=== PATIENT | male | born 1945 | race Caucasian/White ===

== ENCOUNTER → 2016-06-21 | Outpatient (REF) | payer MEDICARE ==
[~2016-06-21] MED LIST: APAP325T PO; COLA100C PO; CYCL10TA PO; GABAPOW41 PO; HUMULIN INSULIN SC; IBUP80TA; INSUR50VL SC; LANTUS INSULIN SC; LORT5TAB PO; MOM30SS PO; MULTLIQ7 PO; NAPR250T2 PO; NEUR100C PO; PLAV75TA PO; PRILOSEC; SENO8.6T2 PO; SIMV20TA2 PO; SIMVPOW2 PO; VASOTEC PO; VERAPAMIL PO; VITAMIN B 1 PO; VITAMIN D PO
== END ==
LOC: M SMT 12:40
PROVIDERS: ATTEND Urology
DX: N39.0 Urinary tract infection, site not specified (principal)

== ENCOUNTER → 2016-07-02 | Outpatient (CLI) | payer MEDICARE ==
[~2016-07-02] MED LIST changes: -PLAV75TA PO; +PLAV75TA38 PO
--- NOTE | 2016-07-02 16:30 | REP ---
CT abdomen and pelvis without IV or bowel contrast: Comparisons 04/14/2015. The visualized lung fernandez are unremarkable. There is a small volume of ascites surrounding the liver as an interval change. Multiple small gallbladder calculi are noted layering along the dependent wall of the gallbladder, similar to the prior study. There is no evidence of acute cholecystitis or biliary duct dilatation. Splenomegaly is again noted, not significantly changed. Splenic calcified granulomas are again noted. To focal zones of induration are again noted in the anterior abdominal wall subcutaneous fat, similar to the prior study,. The thought to be an hematomas from trauma or from the subcutaneous injections. There are stable and unchanged in appearance and may represent chronic scarring in the subcutaneous fat. The adrenals are unremarkable. There are nonobstructive calcifications in the lower pole of the right kidney as previously. There are multiple nonobstructive left renal calculi as previously. However, the current study there is a 3 ml calcification in the proximal left ureter at the UPJ, not present previously. However, there is no hydronephrosis. This calcification may be nonobstructive. The abdominal aorta is unremarkable except for occasional calcified atheroma. There is no periaortic adenopathy or mass. There is new induration adjacent to the ascending colon and there is no focal fluid collection to suggest abscess. This is nonspecific and could represent colitis, diverticulitis, or panniculitis. Upon review there is mild induration of the mesenteric fat surrounding the superior mesenteric artery. This was also present previously and is compatible with panniculitis. There is a focal ascites in the central mesentery above the bladder, not present previously. There are surgical clips, evelyn and calcification in the mesentery medial to the ascending colon, unchanged. Pelvis: There is no adenopathy. No ascites posteriorly in the pelvis. The pelvic bowel loops are unremarkable. There is degenerative calcification in the distal left psoas tendon adjacent to the lesser trochanter of the left hip, unchanged. Impression: There is now induration surrounding the ascending colon, nonspecific, diverticulitis versus colitis versus panniculitis. No definite diverticula are identified. No focal fluid collection to suggest abscess. There is mild induration surrounding the superior mesenteric artery, however, upon review, this was present previously and is compatible with panniculitis. There is a small volume of ascites surrounding the liver and is focal collection of ascites in the central mesentery above the bladder, not present previously. There is a 3 ml calcification in the proximal left ureter at the UPJ, not present previously, however, there is no hydronephrosis. There are bilateral nonobstructive renal calculi again identified, as previously. Cholelithiasis is again noted without biliary duct dilatation as previously. Splenomegaly is again noted as previously. Splenic calcified granulomas are again noted. Two focal zones of induration in the anterior abdominal wall subcutaneous fat are again noted, unchanged, possibly focal zones of scarring. There are s surgical clips in the left inguinal area. These were also present previously. Signed by Francisco Mckeon MD 07/02/2016 04:22 P
== END ==
LOC: M RAD 14:10
PROVIDERS: ATTEND Urology
DX: N39.0 Urinary tract infection, site not specified (principal)

== ENCOUNTER → 2016-07-05 | Outpatient (REF) | payer MEDICARE | LOC: M SMT 13:15 | PROVIDERS: ATTEND Urology | DX: N39.0 Urinary tract infection, site not specified (principal) ==

== ENCOUNTER → 2016-07-22 | Outpatient (REF) | payer MEDICARE ==
[~2016-07-22] MED LIST changes: +CALC600T21 PO; +CARB25TA PO; +CRANCAP4 PO; +INSULANT SC; +PRIL20CA9 PO; +VITA100L PO; +VITA50003 PO
[2016-07-22 16:53] LABS: ANION GAP 12 MEQ/L (8-16); BLOOD UREA NITROGEN 13 MG/DL (7-18); CALCIUM LEVEL 8.2 MG/DL (8.8-10.2); CARBON DIOXIDE LEVEL 22 MEQ/L (21-32); CHLORIDE LEVEL 107 MEQ/L (98-107); GLOMERULAR FILTRATION RATE > 60.0 (>42); GLUCOSE, FASTING 275 MG/DL (83-110); POTASSIUM SERUM 4.2 MEQ/L (3.5-5.1); SODIUM LEVEL 141 MEQ/L (136-145)
[2016-07-22 19:28] LABS: MEAN CORPUSCULAR HGB CONC 30.8 g/dl (32.0-36.5); MEAN CORPUSCULAR VOLUME 77.8 fl (80.0-96.0); RED CELL DISTRIBUTION WIDTH 16.6 % (11.5-14.5); WHITE BLOOD COUNT 3.4 K/mm3 (4.0-10.0)
== END ==
LOC: M LABSMT 09:38
PROVIDERS: ATTEND Urology
DX: Z01.818 Encounter for other preprocedural examination (principal); N20.0 Calculus of kidney

== ENCOUNTER → 2016-07-22 | Outpatient (CLI) | payer MEDICARE ==
--- NOTE | 2016-07-22 10:19 | REP ---
Chest x-ray: Two views. History: Kidney stones. Comparison chest x-ray May 03, 2014. Findings: The patient is status post cervical spine fusion. A granulomatous calcification is seen in the right mid lung zone. The right hemidiaphragm remains somewhat elevated unchanged from the comparison study. There are degenerative changes in the thoracic spine as before. The heart is not enlarged. Pulmonary vasculature is not increased. Impression: Elevated right hemidiaphragm unchanged from comparison study. Old granulomatous disease. No acute abnormality.
== END ==
LOC: M CLY 09:32
PROVIDERS: ATTEND Urology
DX: Z01.818 Encounter for other preprocedural examination (principal); N20.0 Calculus of kidney; J98.4 Other disorders of lung

== ENCOUNTER 2016-07-29 13:35 | Observation (INO) | payer MEDICARE ==
[~2016-07-29] VITALS: Ht 180.3 cm; Wt 123.0 kg
--- NOTE | 2016-07-29 14:16 | REP ---
Clinical: Headache . Findings: Age-related atrophy, periventricular leukomalacia and microvascular ischemic changes are appreciated. The ventricles and sulci are symmetric. Richardson-white differentiation is maintained. There is no evidence for acute intracranial hemorrhage, mass/mass effect, pathology or infarction. No extra-axial fluid collection. Calvarium is intact. Paranasal sinuses and mastoid air cells are clear. Impression: Age related atrophy and microvascular ischemic changes. No acute intracranial hemorrhage, infarction, or mass/mass effect. Signed by Bony Marvin MD 07/29/2016 02:08 P
--- NOTE | 2016-07-29 14:25 | REP ---
Clinical: Syncope. Technique: PA and lateral. Comparison: 07/22/2016. Findings: Mediastinum and cardiac silhouette stable. Moderate elevation of the right hemidiaphragm unchanged. No acute consolidation, effusion, or pneumothorax. Skeletal structures intact. Impression: Chronic stable changes. No acute cardiopulmonary process. Signed by Bony Marvin MD 07/29/2016 02:15 P
[2016-07-29 14:50] LABS: BASO % 0.7 % (0.0-1.0); EOS # 0.1 K/mm3 (0.0-0.50); LARGE UNSTAINED CELL # 0.1 K/mm3 (0.0-0.4); LARGE UNSTAINED CELL % 2.3 % (0.0-4.0); LYMPH # 0.5 K/mm3 (1.5-4.5); LYMPH % 13.7 % (24.0-44.0); MEAN CORPUSCULAR HEMOGLOBIN 23.8 pg (27.0-33.0); MEAN CORPUSCULAR VOLUME 76.7 fl (80.0-96.0); MONO # 0.3 K/mm3 (0.0-0.8); MONO % 8.6 % (0.0-5.0); NEUTROPHILS # 2.5 K/mm3 (1.8-7.7); NEUTROPHILS % 72.7 % (36.0-66.0); PLATELET COUNT, AUTOMATED 102 k/mm3 (150-450); RED CELL DISTRIBUTION WIDTH 16.3 % (11.5-14.5); WHITE BLOOD COUNT 3.5 K/mm3 (4.0-10.0)
[2016-07-29 15:02] LABS: ANION GAP 10 MEQ/L (8-16); BLOOD UREA NITROGEN 12 MG/DL (7-18); CALCIUM LEVEL 8.2 MG/DL (8.8-10.2); CARBON DIOXIDE LEVEL 24 MEQ/L (21-32); CHLORIDE LEVEL 108 MEQ/L (98-107); CREATININE FOR GFR 0.96 MG/DL (0.70-1.30); GLOMERULAR FILTRATION RATE > 60.0 (>42); GLUCOSE, FASTING 236 MG/DL (83-110); POTASSIUM SERUM 3.9 MEQ/L (3.5-5.1); SODIUM LEVEL 142 MEQ/L (136-145)
[2016-07-29] MEDS ORDERED: VITA100T2 PO (16:56)
[2016-07-29] MEDS ORDERED: VERA240T14 PO (16:56)
[2016-07-29] MEDS ORDERED: NAPR500T2 PO (16:56)
[2016-07-29] MEDS ORDERED: COLC1TAB13 PO (16:58)
[2016-07-29] MEDS ORDERED: NORC5TAB PO (16:58)
[2016-07-29] MEDS ORDERED: ENAL5TAB PO (16:58)
[2016-07-29] MEDS ORDERED: ACETAMINOPHEN TAB 650MG DOSE (2X325MG) PO PRN (17:00)
[2016-07-29] MEDS ORDERED: CALCTAB68 PO (17:01)
[2016-07-29] MEDS ORDERED: VITA10002 PO (17:01)
[2016-07-29 17:14] LABS: FREE T4 0.93 NG/DL (0.76-1.46)
[2016-07-29] MEDS ORDERED: COLCHICINE 0.6 MG TAB PO PRN (17:15)
[2016-07-29] MEDS ORDERED: NORCO, ANEXSIA 5/325MG TABLET (HYDROcodone/ACETAMINOPHEN) PO PRN (17:15)
[2016-07-29] MEDS ORDERED: NAPROXEN 250 MG TAB PO PRN (17:15)
[2016-07-29 18:12] VITALS: BP 144/66
[2016-07-29 18:40] VITALS: BP 147/63
[2016-07-29] MEDS ORDERED: GLUCOSE 4 GM CHEW TABLET PO PRN (18:45)
[2016-07-29] MEDS ORDERED: DEXTROSE 50% 50 ML SYRINGE IV PRN (18:45)
[2016-07-29] MEDS ORDERED: GLUCAGON FOR INJ 1 MG VIAL (J1610) SC PRN (18:45)
--- NOTE | 2016-07-29 19:52 | HPE ---
DATE OF ADMISSION: 07/29/2016 PRIMARY CARE PROVIDER: Dr. Conley HISTORY OF PRESENT ILLNESS: This patient is a 71-year-old male with a past medical history significant for vertebral artery insufficiency, incidental finding diabetes, gastroesophageal reflux disease (GERD), hypercholesterolemia, bilateral kidney stone, gout, tremors, who presented to [facility] on 07/29/2016 after a near syncope episode. Patient was in a diner eating lunch, after two-thirds of the meal, all of a sudden patient started having "a lightheadedness type of feeling" originating from the epigastric region radiating to the whole head. Those strange feelings lasted less than a minute and then patient felt he almost passed out and he transitioned to a face where "I'm in a different world and everything is in slow motion" and those abnormal feelings lasted about 20 minutes and resolved without any interventions. Throughout the whole process, the patient did not lose any consciousness, however patient has increased bilateral finger shaking and that never happened before. Denies any loss of bowel or bladder control. Patient stated he is aware of the family member and friend who were in the diner with him. He is aware of what has occurred and the surroundings. He just could not respond appropriately. Denies any fevers, chills. Denies any history of seizure. Denies any pain anywhere. Denies any difficulty breathing. Patient does have a history of severe neuropathy and patient also has been experiencing chronic bilateral hand tremors. Patient also has a history of "vertebral artery blockage" diagnosed by the neurologist and the patient has been taking Plavix. Patient was diagnosed with bilateral kidney stone and patient was instructed to hold off Plavix for the past week. Patient is scheduled to have bilateral kidney stone removal by Dr. Darby on 07/30/2016. ALLERGIES: CODEINE, SULFA, MORPHINE, TETRACYCLINE, PRAMLINTIDE. HOME MEDICATIONS: - [place] 5/325 1 tablet by mouth every 6 hours as needed - carbidopa/levadopa 25/100 by mouth four times a day - Plavix 75 mg by mouth daily - colchicine 0.6 mg by mouth daily as needed for gout flares - vitamin B12 1000 mcg by mouth nightly - enalapril 5 mg by mouth daily - insulin Lantus 45 units nightly - Lantus 65 units subcu every morning - naproxen 500 mg by mouth twice a day as needed for pain - omeprazole 40 mg by mouth nightly - simvastatin 20 mg by mouth nightly - thiamine 100 mg by mouth daily - verapamil 240 mg by mouth daily - calcium/vitamin D complex by mouth nightly - insulin U-500 per sliding scale PAST MEDICAL HISTORY: 1. Insulin dependent diabetes. 2. Gastroesophageal reflux disease (GERD) 3. Hypercholesteremia. 4. Bilateral kidney stones. 5. Gout. 6. Intermittent hand tremors. 7. Peripheral neuropathy. 8. History of sleep apnea. 9. Cervical degenerative disc disease. 10. History of spinal stenosis. 11. Spinal cord changes of myelopathy. PAST SURGICAL HISTORY: 1. Prior anterior C5-6 fusion. 2. Lumbar decompression. 3. Hernia repair. 4. Appendectomy. 5. Left shoulder surgery. SOCIAL HISTORY: The patient used to smoke a cigar intermittently. Patient quit in 2000. Patient drinks beer once weekly. Denies recreational drug use. The patient is a DO NOT RESUSCITATE (DNR). REVIEW OF SYSTEMS: GENERAL: Patient had a brief episode of mentation changes lasting approximately 20-30 minutes. Denies any fever or chills. No similar episode occurred in the past. HEENT: No vision changes. No auditory changes. CARDIOVASCULAR: "Lightheadedness," a strange feeling originating from the epigastric region, radiated to the whole head, lasting less than a minute today during lunch time. Never happened before. Patient does have a history of cardiac murmur; however denies any other significant cardiac history. Denies any pain. Denies any palpitations. RESPIRATORY: No cough, no sputum production. No wheezes. GASTROINTESTINAL: No nauseam, no vomiting. No diarrhea. MUSCULOSKELETAL: History of gout. Currently does not have any muscle pain or joint pain. NEUROLOGIC: History of severe peripheral neuropathy from diabetes. Intermittent involuntary hand tremors. OBJECTIVE: VITAL SIGNS: Blood pressure is 135/64, pulse is 78, respirations 18, temperature is 97.6, pulse oximetry is 97% on room air. Body weight is 123.83 kg. Body height is 180.34 cm. GENERAL: No sign of acute distress. Morbidly obese. Alert and oriented times three. HEENT: Normocephalic, atraumatic. Extraocular muscles grossly intact. CARDIOVASCULAR: Distant positive systolic murmur, best heard at the left sternal border. Regular rate. Positive S1, S2. RESPIRATORY: Lungs clear to auscultation bilaterally. No wheezes or rhonchi. ABDOMEN: Morbidly obese. Soft, nontender, nondistended. No rebound or guarding. MUSCULOSKELETAL: No lower extremity edema. No sign of cyanosis. Surgical scar in the lower cervical region and also in the lower lumbar region. There is a surgical scar at the left deltoid region. NEUROLOGIC: Complete loss of sensation in the bilateral distal lower extremities. Decreased sensation of bilateral hands and wrists. Muscle strength is 5/5. LABORATORY DATA: WBC 3.5, hemoglobin is 10.6, hematocrit is 34.2, platelet count is 102. Sodium is 142, potassium 3.9, chloride is 108, carbon dioxide 24, BUN 12, creatinine 0.96, GFR greater than 60, fasting glucose is 236, calcium 8.2, total CK is 186, troponin is less than 0.02. IMAGING STUDIES: Chest x-ray showed chronic stable changes. No acute cardiopulmonary processes. CT of the head without contrast showed age related atrophy and microvascular ischemic changes. No acute intracranial hemorrhage, infarction, mass, or mass effect. ASSESSMENT AND PLAN: 1. Near syncope episode. Patient will be admitted to the progressive care unit (PCU). The patient did complain about epigastric discomfort with radiation. The first set of troponin is negative. Will follow with a repeat troponin. We will obtain an EEG to rule out any possible seizures. I had a chance to discuss with the daytime rounding physician, Dr. Tobias. We both agree that it would be beneficial to restart the Plavix at this time. 2. Insulin dependent diabetes. We will follow his A1c. Patient will continue his home regimen, long-acting insulin 65 units subcu every morning and 45 units subcu nightly. Patient will use U-500 high potency insulin per sliding scale every morning and nightly. 4. Severe peripheral neuropathy. 5. Hyperlipidemia. Zocor 20 mg by mouth nightly. 6. Intermittent involuntary tremors. Continue carbidopa and levadopa. 7. History of gout. Currently does not have any flare. 8. History of vertebral artery insufficiency/stenosis. Patient's Plavix is restarted. 9. Patient had a CT of abdomen and pelvis performed on 07/02/2016 and there is no obstruction. There is no hydronephrosis. Patient is getting stone removal and will be elective surgery. Currently we are in the process of trying to rule out any cardiovascular event. 10. Deep vein thrombosis (DVT) prophylaxis. The patient will be on heparin. MTDD
[2016-07-29 19:54] VITALS: BP 129/55
[2016-07-29] MEDS ORDERED: OMEPRAZOLE 20 MG CAP As Ordered ONE (20:54)
[2016-07-29] MEDS ORDERED: HEPARIN SOD (PORCINE) 5000 UNITS/ML VIAL As Ordered ONE (20:54)
[2016-07-29] MEDS ORDERED: LEVEMIR (INSULIN DETEMIR) 1 UNITS/0.01ML As Ordered ONE (20:56)
[2016-07-29] MEDS ORDERED: SIMVASTATIN 20 MG TAB PO SCH (21:00)
[2016-07-29] MEDS: CYANOCOBALAMIN 500 MCG TAB PO SCH (21:02)
[2016-07-29] MEDS: OMEPRAZOLE 20 MG CAP PO SCH (21:02)
[2016-07-29] MEDS: HEPARIN SOD (PORCINE) 5000 UNITS/ML VIAL SC SCH (21:02)
[2016-07-29] MEDS: SINEMET 25-100 MG TAB PO SCH (21:02)
[2016-07-29] MEDS: LEVEMIR (INSULIN DETEMIR) 1 UNITS/0.01ML SC SCH (21:03)
[2016-07-30] VITALS: BP 130/65
[2016-07-30 04:00] VITALS: BP 114/61
[2016-07-30 05:40] LABS: MEAN CORPUSCULAR HEMOGLOBIN 23.6 pg (27.0-33.0); MEAN CORPUSCULAR HGB CONC 30.3 g/dl (32.0-36.5); MEAN CORPUSCULAR VOLUME 78.1 fl (80.0-96.0); RED CELL DISTRIBUTION WIDTH 16.6 % (11.5-14.5); WHITE BLOOD COUNT 3.1 K/mm3 (4.0-10.0)
[2016-07-30] MEDS: HEPARIN SOD (PORCINE) 5000 UNITS/ML VIAL SC SCH ×3 (05:52→21:08)
[2016-07-30 06:02] LABS: ANION GAP 10 MEQ/L (8-16); BLOOD UREA NITROGEN 11 MG/DL (7-18); CALCIUM LEVEL 8.6 MG/DL (8.8-10.2); CARBON DIOXIDE LEVEL 26 MEQ/L (21-32); CHLORIDE LEVEL 108 MEQ/L (98-107); CREATININE FOR GFR 0.81 MG/DL (0.70-1.30); GLOMERULAR FILTRATION RATE > 60.0 (>42); GLUCOSE, FASTING 183 MG/DL (83-110); POTASSIUM SERUM 4.2 MEQ/L (3.5-5.1); SODIUM LEVEL 144 MEQ/L (136-145)
[2016-07-30] MEDS ORDERED: INSULIN REGULAR SC SCH ×4 (07:30→17:30)
[2016-07-30 07:49] VITALS: BP 133/71
[2016-07-30] MEDS ORDERED: LEVEMIR (INSULIN DETEMIR) 1 UNITS/0.01ML As Ordered ONE (08:53)
[2016-07-30] MEDS: SINEMET 25-100 MG TAB PO SCH ×4 (08:56→21:09)
[2016-07-30] MEDS: VERAPAMIL 120 MG SR TAB PO SCH (08:56)
[2016-07-30] MEDS: LEVEMIR (INSULIN DETEMIR) 1 UNITS/0.01ML SC SCH ×2 (08:56→21:09)
[2016-07-30] MEDS: THIAMINE 100 MG TAB PO SCH (08:57)
[2016-07-30] MEDS: CLOPIDOGREL 75 MG TAB PO SCH (08:57)
[2016-07-30] MEDS: ENALAPRIL MALEATE 5 MG TAB PO SCH (08:57)
[2016-07-30 10:17] LABS: FOLATE 12.6 NG/ML (>5.4); VITAMIN B12 LEVEL 1167 PG/ML (247-911)
[2016-07-30] MEDS: [UNRECOGNIZED DRUG - SUPPLY] XX SCH ×2 (12:00→17:30)
[2016-07-30] MEDS ORDERED: HEPARIN SOD (PORCINE) 5000 UNITS/ML VIAL As Ordered ONE (13:33)
[2016-07-30] MEDS: INSULIN REGULAR SC SCH (13:35)
[2016-07-30 15:03] VITALS: BP 113/53
--- NOTE | 2016-07-30 15:11 | REP ---
MRI BRAIN WITHOUT CONTRAST: HISTORY: TIAs. COMPARISON: 10/18/2011. Areas of increased signal intensity on T2-weighted images are present in the periventricular and subcortical white matter. This represents small vessel ischemic disease. There is no intraparenchymal hemorrhage, infarct, mass or midline shift. The ventricular system and cortical sulci as well as subarachnoid space in the posterior fossa are dilated consistent with mild volume loss. There is no extracerebral collection. The sinuses are clear. IMPRESSION: 1. Small vessel ischemic disease. 2. Mild volume loss. Signed by Steven Kaur MD 07/30/2016 03:30 P
[2016-07-30 15:15] VITALS: BP 152/65
--- NOTE | 2016-07-30 15:29 | EDDOCDS ---
Physician Documentation [facility] Name: Thanh Desai Age: 71 yrs Sex: Male : 1945 Arrival Date: 07/29/2016 Time: 13:35 Bed Admit Hold Private MD: Disposition: 07/29/16 15:52 Hospitalization ordered by Veronica Mccallum for Inpatient Admission. Preliminary diagnosis are Syncope and collapse, Cardiac murmur, unspecified, Chest pain, unspecified. - Bed requested for PCU. - Status is Inpatient Admission. dy - Condition is Stable. - Problem is new. - Symptoms are unchanged. Historical: - Allergies: Codeine Sulfate; Morphine; TETRACYCLINES; SymlinPen 60; - Home Meds: 1. Plavix 75 mg Oral tab 1 tab once daily 2. verapamil 240 mg Oral C24P 1 cap once daily 3. vitamin B1 daily 4. simvastatin 20 mg Oral tab 1 tab once daily 5. omeprazole 40 mg Oral cpDR 1 cap once daily 6. naproxen 500 mg Oral tab 1 tab as needed 7. Humulin R U-500 (Concentrated) Insulin subcutaneous sliding scale subcutaneous 8. Lantus 65 units in am, 45 units in pm Sub-Q 9. hydrocodone-acetaminophen 5-325 mg Oral tab 1 tab every 6 hours 10. enalapril maleate 5 mg Oral tab 1 tab once daily 11. colchicine 0.6 mg Oral tab 1 tab as needed 12. Vitamin C Oral 13. Vitamin D Oral 50,000 unit monthly 14. Vitamin B-12 Oral daily 15. Calcium + Vitamin D Oral daily 16. cranberry extract-vitamin C oral oral daily 17. carbidopa-levodopa 25-100 mg Oral tab 1 tab 4 times per day - PMHx: tremors; Diabetes - IDDM: controlled; GERD; Hypercholesterolemia; Kidney stones; - Social history: No barriers to communication noted, The patient speaks fluent Icelandic. - : The pt / caregiver states he / she is on anticoagulants: Plavix. Home medication list is obtained from the patient. - Exposure Risk Screening:: None identified. Vital Signs: 07/29 13:59 BP 140 / 77; Pulse 80; Resp 18; Temp 97.6(O); Pulse Ox 97% on R/A; Weight 123.83 kg / dem1 273 lbs; Height 5 ft. 11 in. (180.34 cm); Pain 0/10; 15:23 BP 152 / 67 Supine; Pulse 77; mcp 15:24 BP 138 / 62 Sitting; Pulse 74; mcp 15:24 BP 135 / 64 Standing; Pulse 78; mcp 15:28 Pulse 72 MON; Pulse Ox 95% ; ld5 15:28 BP 131 / 62 (auto/); ld5 15:43 BP 135 / 62 (auto/); ld5 15:43 Pulse 72 MON; Pulse Ox 95% ; ld5 15:58 BP 133 / 64 (auto/); ld5 15:58 Pulse 72 MON; Pulse Ox 94% ; ld5 16:29 BP 145 / 64 (auto/); ld5 16:29 Pulse 76 MON; Pulse Ox 95% ; ld5 16:43 BP 140 / 65 (auto/); ld5 16:43 Pulse 72 MON; Pulse Ox 95% ; ld5 16:58 BP 148 / 66 (auto/); ld5 16:58 Pulse 74 MON; Pulse Ox 95% ; ld5 17:13 BP 142 / 64 (auto/); ld5 17:13 Pulse 72 MON; Pulse Ox 96% ; ld5 17:43 Pulse 74 MON; Pulse Ox 95% ; ld5 17:43 BP 132 / 64 (auto/); ld5 17:58 BP 144 / 66 (auto/); ld5 17:58 Pulse 74 MON; Pulse Ox 94% ; ld5 18:13 BP 142 / 62 (auto/); ld5 18:13 Pulse 74 MON; Resp 18; Temp 99; Pulse Ox 94% ; ld5 13:59 Body Mass Index 38.08 (123.83 kg, 180.34 cm) dem1 MDM: 13:41 ECG WITH READING ER PHYS+CARDIAG ordered. EDMS 13:54 Psychological Examiner/Pulse Ox/q 30 min VS ordered. br1 13:54 IV Saline Lock ordered. br1 13:54 Rhythm Strip to chart ordered. br1 13:54 Undress patient appropriately for examination ordered. br1 13:54 Orthostatic VS ordered. br1 13:54 Basic Metabolic Profile Ordered. EDMS 13:54 CBC with Diff Ordered. EDMS 13:55 Cardiac Injury Profile Ordered. EDMS 13:55 Troponin Ordered. EDMS 13:55 Chest, 2 View (pa\E\lat) Ordered. EDMS 13:56 CT Head Without Contrast Ordered. EDMS 15:16 Basic Metabolic Profile Reviewed. br1 15:16 CBC with Diff Reviewed. br1 15:16 Cardiac Injury Profile Reviewed. br1 15:16 Troponin Reviewed. br1 15:16 Chest, 2 View (pa\E\lat) Reviewed. br1 15:16 CT Head Without Contrast Reviewed. br1 15:55 BED REQUEST+ADM ordered. EDMS 16:04 Financial registration complete. [email or web address] 16:23 [facility] Payment Agreement was scanned into [employer] and attached to record. [email or web address] 16:40 CARDIAC MARKER PANEL Ordered. EDMS 16:43 HEMOGLOBIN A1C Ordered. EDMS 16:43 THYROID STIMULATING HORMONE Ordered. EDMS 16:43 FREE T4 Ordered. EDMS 17:04 Admission / Observation Status ordered. EDMS 17:05 CONSISTENT CARBOHYDRATES ordered. EDMS 17:13 PHYSICAL THERAPY EVAL & TREAT ordered. EDMS 19:11 Fingerstick Blood Sugar Ordered. EDMS 19:31 FOLATE Ordered. EDMS 19:31 VITAMIN B12 LEVEL Ordered. EDMS 21:37 COMPLETE BLOOD COUNT Ordered. EDMS 21:37 CARDIAC MARKER PANEL Ordered. EDMS 21:37 BASIC METABOLIC PROFILE Ordered. EDMS 02 11:52 MRA BRAIN W/O CONTRAST Ordered. EDMS 11:52 MRI Brain without Contrast Ordered. EDMS 11:54 MRA CAROTID W/O FOL WITH Ordered. EDMS 13:38 Fingerstick Blood Sugar Ordered. EDMS 15:07 T-Sheet-- Draft Copy was scanned into [employer] and attached to record. gb 15:08 PCR was scanned into [employer] and attached to record. gb 15:08 ECG/EKG was scanned into [facility] and attached to record. gb 15:08 Radiology Report was scanned into [facility] and attached to record. gb 15:08 Rhythm Strip was scanned into [employer] [facility] and attached to record. gb Signatures: Dispatcher [employer] EDMS Sharifa Reen RN Michelle Dominguez mcp, Reg Reg gb Jasper Salgado RN RN dy Roggie, Brian, MD MD br1 Guillaume Gan RN RN [facility] Belkis Zhong, Reg Reg [email or web address] The chart was reviewed and I authenticate all verbal orders and agree with the evaluation and treatment provided.Corrections: (The following items were deleted from the chart) 07/29 21:38 19:30 CARDIAC MARKER PANEL ordered. EDMS EDMS 21:38 19:31 COMPLETE BLOOD COUNT ordered. EDMS EDMS 19:31 BASIC METABOLIC PROFILE ordered. EDMS EDMS 07/30 11:52 10:58 MRA BRAIN WITH CONTRAST ordered. EDMS EDMS 11:52 10:58 MRI Brain W/CON ordered. EDMS EDMS 11:54 10:58 MRA CAROTID WITH CONTRAST ordered. EDMS EDMS : 07/29 16:23 [facility] Payment Agreement [email or web address] 07/30 15:07 T-Sheet-- Draft Copy gb 15:08 ECG/EKG gb MTDD
--- NOTE | 2016-07-30 15:29 | EDDOCDS ---
Nurse's Notes [facility] Name: Thanh Desai Age: 71 yrs Sex: Male : 1945 Arrival Date: 07/29/2016 Time: 13:35 Bed Admit Hold Private MD: Diagnosis: Syncope and collapse;Cardiac murmur, unspecified;Chest pain, unspecified Presentation: 07/29 13:40 Presenting complaint: EMS states: Was sitting at table eating lunch and had syncopal mcp episode. FSBS--247. IV established in right wrist #18. Suicide/Homicide risk assessment- the patient denies having any suicidal and/or homicidal ideations and does not present with any other emotional, behavioral or mental health complaints. Status: Patient is not a creative services designer or dependent. Transition of care: patient was not received from another setting of care. 13:40 Acuity: HOLLEY Level 3 [facility] 13:40 Method Of Arrival: Ambulance [facility] Triage Assessment: 14:01 General: Appears in no apparent distress, comfortable, Behavior is cooperative. Pain: mcp Denies pain. Neurological: Level of Consciousness is awake, alert, Oriented to person, place, time, Moves all extremities. Speech is normal. Cardiovascular: Rhythm is sinus rhythm No ectopy. Respiratory: Airway is patent Respiratory effort is even, unlabored. Derm: Skin is pink, warm & dry. Historical: - Allergies: Codeine Sulfate; Morphine; TETRACYCLINES; SymlinPen 60; - Home Meds: 1. Plavix 75 mg Oral tab 1 tab once daily 2. verapamil 240 mg Oral C24P 1 cap once daily 3. vitamin B1 daily 4. simvastatin 20 mg Oral tab 1 tab once daily 5. omeprazole 40 mg Oral cpDR 1 cap once daily 6. naproxen 500 mg Oral tab 1 tab as needed 7. Humulin R U-500 (Concentrated) Insulin subcutaneous sliding scale subcutaneous 8. Lantus 65 units in am, 45 units in pm Sub-Q 9. hydrocodone-acetaminophen 5-325 mg Oral tab 1 tab every 6 hours 10. enalapril maleate 5 mg Oral tab 1 tab once daily 11. colchicine 0.6 mg Oral tab 1 tab as needed 12. Vitamin C Oral 13. Vitamin D Oral 50,000 unit monthly 14. Vitamin B-12 Oral daily 15. Calcium + Vitamin D Oral daily 16. cranberry extract-vitamin C oral oral daily 17. carbidopa-levodopa 25-100 mg Oral tab 1 tab 4 times per day - PMHx: tremors; Diabetes - IDDM: controlled; GERD; Hypercholesterolemia; Kidney stones; - Social history: No barriers to communication noted, The patient speaks fluent Arabic. - : The pt / caregiver states he / she is on anticoagulants: Plavix. Home medication list is obtained from the patient. - Exposure Risk Screening:: None identified. Screenin:27 Screening information is obtained from the patient. Fall risk: No risks identified. mcp Assistance ADL's: requires no assistance with activities of daily living. Abuse/DV Screen: The patient / caregiver reports he/she is: not in a situation that causes fear, pain or injury. Nutritional screening: No deficits noted. Advance Directives: There is no active DNR order. home support is adequate. Assessment: 14:00 General: Appears in no apparent distress, Behavior is cooperative. Neurological: Level mcp of Consciousness is awake, alert, Oriented to person, place, time, Moves all extremities. Speech is normal. Cardiovascular: Rhythm is sinus rhythm No ectopy. Respiratory: Airway is patent Respiratory effort is even, unlabored. Derm: Skin is pink, warm & dry. 15:26 General: Appears in no apparent distress, comfortable, Behavior is cooperative. Pain: mcp Location: back and neck Pain currently is 4 out of 10 on a pain scale. Neurological: Level of Consciousness is awake, alert, Oriented to person, place, time, Moves all extremities. Speech is normal. Cardiovascular: Rhythm is sinus rhythm No ectopy. Respiratory: Airway is patent Respiratory effort is even, unlabored. Derm: Skin is pink, warm & dry. 15:45 General: Appears in no apparent distress, Behavior is cooperative, pleasant. Pain: ld5 Location: neck Pain currently is 4 out of 10 on a pain scale. Neurological: Level of Consciousness is awake, obeys commands, Oriented to person, place, time, Floor Surfacer are equal bilaterally. Neurological: Denies weakness dizziness. Respiratory: Airway is patent Respiratory effort is even, unlabored. GI: Abdomen is obese, Bowel sounds present X 4 quads. Abd is soft and non tender X 4 quads. Denies nausea, vomiting. Derm: Skin is intact, Skin is dry. 16:30 General: Appears in no apparent distress, Behavior is cooperative. Neurological: Level ld5 of Consciousness is awake, alert. Respiratory: Airway is patent Respiratory effort is even, unlabored. 17:30 General: Hospitalist in to assess pt. ld5 17:55 General: Appears in no apparent distress, Behavior is cooperative, pleasant. General: ld5 Pt aware of plan for admission and plan to stay in ER pending monitored bed availability. Family members remain at bedside. Will continue to monitor. Pain: Pain currently is 2 out of 10 on a pain scale. Neurological: Level of Consciousness is awake, alert. Respiratory: Airway is patent Respiratory effort is even, unlabored. 18:22 General: Pt sitting up in bed. Admission RN in with pt. Respirations easy and ld5 unlabored. Will continue to monitor. 18:22 General: Report given to [facility] RN fowler. ld5 Vital Signs: 13:59 BP 140 / 77; Pulse 80; Resp 18; Temp 97.6(O); Pulse Ox 97% on R/A; Weight 123.83 kg; dem1 Height 5 ft. 11 in. (180.34 cm); Pain 0/10; 15:23 BP 152 / 67 Supine; Pulse 77; mcp 15:24 BP 138 / 62 Sitting; Pulse 74; mcp 15:24 BP 135 / 64 Standing; Pulse 78; mcp 15:28 Pulse 72 MON; Pulse Ox 95% ; ld5 15:28 BP 131 / 62 (auto/); ld5 15:43 BP 135 / 62 (auto/); ld5 15:43 Pulse 72 MON; Pulse Ox 95% ; ld5 15:58 BP 133 / 64 (auto/); ld5 15:58 Pulse 72 MON; Pulse Ox 94% ; ld5 16:29 BP 145 / 64 (auto/); ld5 16:29 Pulse 76 MON; Pulse Ox 95% ; ld5 16:43 BP 140 / 65 (auto/); ld5 16:43 Pulse 72 MON; Pulse Ox 95% ; ld5 16:58 BP 148 / 66 (auto/); ld5 16:58 Pulse 74 MON; Pulse Ox 95% ; ld5 17:13 BP 142 / 64 (auto/); ld5 17:13 Pulse 72 MON; Pulse Ox 96% ; ld5 17:43 Pulse 74 MON; Pulse Ox 95% ; ld5 17:43 BP 132 / 64 (auto/); ld5 17:58 BP 144 / 66 (auto/); ld5 17:58 Pulse 74 MON; Pulse Ox 94% ; ld5 18:13 BP 142 / 62 (auto/); ld5 18:13 Pulse 74 MON; Resp 18; Temp 99; Pulse Ox 94% ; ld5 13:59 Body Mass Index 38.08 (123.83 kg, 180.34 cm) dem1 Vitals: 13:59 Log In Time N/A - ambulance arrival. [facility] ED Course: 13:35 Patient visited by Gladis Dominique, Investment Sales Assistant. deg 13:35 Patient moved to Waiting deg 13:38 Patient moved to 8 deg 13:41 Triage Initiated mcp 13:44 Paulo Villanueva MD is Attending Physician. br1 13:54 Patient visited by Paulo Villanueva MD. br1 13:55 shearer screen measurer and trimmer on. Pulse ox on. NIBP on. dem1 13:55 EKG done. (by ED staff). Reviewed by Paulo Villanueva MD. dem1 13:59 Patient visited by Tanesha Bearden. dem1 14:00 Maintain field IV. Dressing intact. Good blood return noted. Site clean & dry. Gauge & mcp site: #18 right wrist. 14:02 Patient visited by Sharifa Rene, SERGE. mcp 14:34 Basic Metabolic Profile Sent. mcp 14:34 CBC with Diff Sent. mcp 14:34 Cardiac Injury Profile Sent. mcp 14:34 Troponin Sent. mcp 14:54 CT Head Without Contrast Returned. EDMS 14:54 Chest, 2 View (pa\E\lat) Returned. EDMS 15:27 The patient / caregiver is instructed regarding the plan of care and ED course. Patient mcp has correct armband on for positive identification. Placed in gown. Placed in psych safe attire. Bed in low position. Call light in reach. Side rails up X2. Adult w/ patient. 15:29 Patient visited by Sharifa Rene, RN. mcp 15:52 Veronica Mccallum is Hospitalizing Provider. br1 16:15 Patient visited by Ruby Payne,SERGE. ld5 16:23 [facility] Payment Agreement was scanned into [employer] and attached to record. ks16 16:30 Patient visited by Ruby Payne,RN. ld5 17:28 Patient visited by Ruby Payne,RN. ld5 17:43 Patient moved to Admit Hold deg 17:46 Patient visited by Ruby Payne,RN. ld5 17:58 Patient visited by Ruby Payne,RN. ld5 18:22 Patient visited by Ruby Payne,SERGE. ld5 07/30 15:07 T-Sheet-- Draft Copy was scanned into [employer] and attached to record. gb 15:08 PCR was scanned into [employer] and attached to record. gb 15:08 ECG/EKG was scanned into [employer] and attached to record. gb 15:08 Radiology Report was scanned into [employer] and attached to record. gb 15:08 Rhythm Strip was scanned into [employer] and attached to record. gb Attachments: 15:08 Rhythm Strip gb Order Results: Lab Order: Basic Metabolic Profile; [facility] 07/29/16 14:33 Test: GLUCOSE, FASTING; Value: 236; Range: 83-110; Abnormal: Above high normal; Units: MG/DL; Status: F Test: BLOOD UREA NITROGEN; Value: 12; Range: 7-18; Units: MG/DL; Status: F Test: CREATININE FOR GFR; Value: 0.96; Range: 0.70-1.30; Units: MG/DL; Status: F Test: GLOMERULAR FILTRATION RATE; Value: > 60.0; Range: >42; Status: F Test: SODIUM LEVEL; Value: 142; Range: 136-145; Units: MEQ/L; Status: F Test: POTASSIUM SERUM; Value: 3.9; Range: 3.5-5.1; Units: MEQ/L; Status: F Test: CHLORIDE LEVEL; Value: 108; Range: 98-107; Abnormal: Above high normal; Units: MEQ/L; Status: F Test: CARBON DIOXIDE LEVEL; Value: 24; Range: 21-32; Units: MEQ/L; Status: F Test: ANION GAP; Value: 10; Range: 8-16; Units: MEQ/L; Status: F Test: CALCIUM LEVEL; Value: 8.2; Range: 8.8-10.2; Abnormal: Below low normal; Units: MG/DL; Status: F Test Note: ; Units are mL/min/1.73 m2 Chronic Kidney Disease Staging per NKF: Stage I & II GFR >=60 Normal to Mildly Decreased Stage III GFR 30-59 Moderately Decreased Stage IV GFR 15-29 Severely Decreased Stage V GFR <15 Very Little GFR Left ESRD GFR <15 on SHADE MAKER Lab Order: CBC with Diff; SPEC'M 07/29/16 14:33 Test: WHITE BLOOD COUNT; Value: 3.5; Range: 4.0-10.0; Abnormal: Below low normal; Units: K/mm3; Status: F Test: RED BLOOD COUNT; Value: 4.46; Range: 4.30-6.10; Units: M/mm3; Status: F Test: HEMOGLOBIN; Value: 10.6; Range: 14.0-18.0; Abnormal: Below low normal; Units: g/dl; Status: F Test: HEMATOCRIT; Value: 34.2; Range: 42.0-52.0; Abnormal: Below low normal; Units: %; Status: F Test: MEAN CORPUSCULAR VOLUME; Value: 76.7; Range: 80.0-96.0; Abnormal: Below low normal; Units: fl; Status: F Test: MEAN CORPUSCULAR HEMOGLOBIN; Value: 23.8; Range: 27.0-33.0; Abnormal: Below low normal; Units: pg; Status: F Test: MEAN CORPUSCULAR HGB CONC; Value: 31.0; Range: 32.0-36.5; Abnormal: Below low normal; Units: g/dl; Status: F Test: RED CELL DISTRIBUTION WIDTH; Value: 16.3; Range: 11.5-14.5; Abnormal: Above high normal; Units: %; Status: F Test: PLATELET COUNT, AUTOMATED; Value: 102; Range: 150-450; Abnormal: Below low normal; Units: k/mm3; Status: F Test: NEUTROPHILS %; Value: 72.7; Range: 36.0-66.0; Abnormal: Above high normal; Units: %; Status: F Test: LYMPH %; Value: 13.7; Range: 24.0-44.0; Abnormal: Below low normal; Units: %; Status: F Test: MONO %; Value: 8.6; Range: 0.0-5.0; Abnormal: Above high normal; Units: %; Status: F Test: EOS %; Value: 2.0; Range: 0.0-3.0; Units: %; Status: F Test: BASO %; Value: 0.7; Range: 0.0-1.0; Units: %; Status: F Test: LARGE UNSTAINED CELL %; Value: 2.3; Range: 0.0-4.0; Units: %; Status: F Test: NEUTROPHILS #; Value: 2.5; Range: 1.8-7.7; Units: K/mm3; Status: F Test: LYMPH #; Value: 0.5; Range: 1.5-4.5; Abnormal: Below low normal; Units: K/mm3; Status: F Test: MONO #; Value: 0.3; Range: 0.0-0.8; Units: K/mm3; Status: F Test: EOS #; Value: 0.1; Range: 0.0-0.50; Units: K/mm3; Status: F Test: BASO #; Value: 0.0; Range: 0.0-0.2; Units: K/mm3; Status: F Test: LARGE UNSTAINED CELL #; Value: 0.1; Range: 0.0-0.4; Units: K/mm3; Status: F Lab Order: Cardiac Injury Profile; [facility] 07/29[facility]16 14:33 Test: CPK CREATINE PHOSPHOKINASE; Value: 186; Range: 39-308; Units: U/L; Status: F Test: CK-MB VALUE MASS; Value: 4.8; Range: 0.0-3.6; Abnormal: Above high normal; Units: NG/ML; Status: F Test: MB/CK RELATIVE INDEX; Value: 2.58; Range: < OR =4; Status: F Test Note: ; DIAGNOSIS CRITERIA MMB ng/ml Relative Index (RI) NON-AMI < or = 5 N/A RICH[place]DSON ZONE > 5 < or = 4 AMI > 5 > 4 Lab Order: Troponin; SPEC'M 07/29/16 14:33 Test: TROPONIN I; Value: < 0.02; Range: < 0.10; Units: NG/ML; Status: F Test Note: ; Troponin I Reference Interval for [employer] LOCI: 99th Percentile= 0.00-0.045 ng/ml Risk Stratification: <= 0.10 ng/ml Decreased Risk for Adverse Clinical Events. 0.10-1.50 ng/ml Increased Risk for Adverse Clinical Events. Evaluation of additional criterion and/or repeat testing in 2-6 hours is suggested to rule out myocardial damage. >= 1.50 ng/ml Indicative of Myocardial Injury. Lab Order: CARDIAC MARKER PANEL; [facility] 07/29/16 19:54 Test: CPK CREATINE PHOSPHOKINASE; Value: 200; Range: 39-308; Units: U/L; Status: F Test: CK-MB VALUE MASS; Value: 4.4; Range: 0.0-3.6; Abnormal: Above high normal; Units: NG/ML; Status: F Test: MB/CK RELATIVE INDEX; Value: 2.20; Range: < OR =4; Status: F Test: TROPONIN I; Value: < 0.02; Range: < 0.10; Units: NG/ML; Status: F Test Note: ; DIAGNOSIS CRITERIA MMB ng/ml Relative Index (RI) NON-AMI < or = 5 N/A R[place] ZONE > 5 < or = 4 AMI > 5 > 4 Lab Order: HEMOGLOBIN A1C; [facility] 07/29/16 14:32 Test: HEMOGLOBIN A1c; Value: 8.9; Range: 4.5-6.2; Abnormal: Above high normal; Units: %; Status: F Test: ESTIMATED AVERAGE GLUCOSE; Value: 209; Range: 60-110; Abnormal: Above high normal; Units: MG/DL; Status: F Lab Order: THYROID STIMULATING HORMONE; [facility] 07/29/16 14:32 Test: THYROID STIMULATING HORMONE; Value: 2.680; Range: 0.358-3.740; Units: uIU/ML; Status: F Lab Order: FREE T4; [facility] 07/29/16 14:32 Test: FREE T4; Value: 0.93; Range: 0.76-1.46; Units: NG/DL; Status: F Lab Order: Fingerstick Blood Sugar; [facility] 07/29/16 19:02 Test: BEDSIDE GLUCOSE; Value: 107; Range: 83-110; Units: MG/DL; Status: F Lab Order: FOLATE; [facility] 07/30/16 05:29 Test: FOLATE; Value: 12.6; Range: >5.4; Units: NG/ML; Status: F Test Note: ; FOLATE NORMAL RANGE NORMAL GREATER THAN 5.4 NG/ML INDETERMINATE 3.4-5.4 NG/ML DEFICIENT LESS THAN 3.4 NG/ML Lab Order: VITAMIN B12 LEVEL; SPEC07/30/16 05:29 Test: VITAMIN B12 LEVEL; Value: 1167; Range: 247-911; Abnormal: Above high normal; Units: PG/ML; Status: F Test Note: ; VITAMIN B12 NORMAL RANGE NORMAL 247 - 911 PG/ML INDETERMINATE 211 - 246 PG/ML DEFICIENT LESS THAN 211 PG/ML Lab Order: COMPLETE BLOOD COUNT; SPEC07/30/16 05:29 Test: WHITE BLOOD COUNT; Value: 3.1; Range: 4.0-10.0; Abnormal: Below low normal; Units: K/mm3; Status: F Test: RED BLOOD COUNT; Value: 4.18; Range: 4.30-6.10; Abnormal: Below low normal; Units: M/mm3; Status: F Test: HEMOGLOBIN; Value: 9.9; Range: 14.0-18.0; Abnormal: Below low normal; Units: g/dl; Status: F Test: HEMATOCRIT; Value: 32.6; Range: 42.0-52.0; Abnormal: Below low normal; Units: %; Status: F Test: MEAN CORPUSCULAR VOLUME; Value: 78.1; Range: 80.0-96.0; Abnormal: Below low normal; Units: fl; Status: F Test: MEAN CORPUSCULAR HEMOGLOBIN; Value: 23.6; Range: 27.0-33.0; Abnormal: Below low normal; Units: pg; Status: F Test: MEAN CORPUSCULAR HGB CONC; Value: 30.3; Range: 32.0-36.5; Abnormal: Below low normal; Units: g/dl; Status: F Test: RED CELL DISTRIBUTION WIDTH; Value: 16.6; Range: 11.5-14.5; Abnormal: Above high normal; Units: %; Status: F Test: PLATELET COUNT, AUTOMATED; Value: 91; Range: 150-450; Abnormal: Below low normal; Units: k/mm3; Status: F Lab Order: CARDIAC MARKER PANEL; SPEC07/30/16 05:29 Test: CPK CREATINE PHOSPHOKINASE; Value: 223; Range: 39-308; Units: U/L; Status: F Test: CK-MB VALUE MASS; Value: 4.6; Range: 0.0-3.6; Abnormal: Above high normal; Units: NG/ML; Status: F Test: MB/CK RELATIVE INDEX; Value: 2.06; Range: < OR =4; Status: F Test: TROPONIN I; Value: < 0.02; Range: < 0.10; Units: NG/ML; Status: F Test Note: ; DIAGNOSIS CRITERIA MMB ng/ml Relative Index (RI) NON-AMI < or = 5 N/A R[place] ZONE > 5 < or = 4 AMI > 5 > 4 Lab Order: BASIC METABOLIC PROFILE; SPEC'M 07/30/16 05:29 Test: GLUCOSE, FASTING; Value: 183; Range: 83-110; Abnormal: Above high normal; Units: MG/DL; Status: F Test: BLOOD UREA NITROGEN; Value: 11; Range: 7-18; Units: MG/DL; Status: F Test: CREATININE FOR GFR; Value: 0.81; Range: 0.70-1.30; Units: MG/DL; Status: F Test: GLOMERULAR FILTRATION RATE; Value: > 60.0; Range: >42; Status: F Test: SODIUM LEVEL; Value: 144; Range: 136-145; Units: MEQ/L; Status: F Test: POTASSIUM SERUM; Value: 4.2; Range: 3.5-5.1; Units: MEQ/L; Status: F Test: CHLORIDE LEVEL; Value: 108; Range: 98-107; Abnormal: Above high normal; Units: MEQ/L; Status: F Test: CARBON DIOXIDE LEVEL; Value: 26; Range: 21-32; Units: MEQ/L; Status: F Test: ANION GAP; Value: 10; Range: 8-16; Units: MEQ/L; Status: F Test: CALCIUM LEVEL; Value: 8.6; Range: 8.8-10.2; Abnormal: Below low normal; Units: MG/DL; Status: F Test Note: ; Units are mL/min/1.73 m2 Chronic Kidney Disease Staging per NKF: Stage I & II GFR >=60 Normal to Mildly Decreased Stage III GFR 30-59 Moderately Decreased Stage IV GFR 15-29 Severely Decreased Stage V GFR <15 Very Little GFR Left ESRD GFR <15 on SHADE MAKER Lab Order: Fingerstick Blood Sugar; SPEC'M 07/30/16 13:29 Test: BEDSIDE GLUCOSE; Value: 215; Range: 83-110; Abnormal: Above high normal; Units: MG/DL; Status: F Radiology Order: Chest, 2 View (pa\E\lat) Test: Chest, 2 View (pa\E\lat) REASON FOR EXAMINATION: Syncope; Clinical: Syncope.; ; Technique: PA and lateral.; ; Comparison: 07/22/2016.; ; Findings:; Mediastinum and cardiac silhouette stable. Moderate elevation of the right; hemidiaphragm unchanged. No acute consolidation, effusion, or pneumothorax.; Skeletal structures intact.; ; Impression:; Chronic stable changes. No acute cardiopulmonary process.; ; ; Signed by; Bony Marvin MD 07/29/2016 02:15 P; Radiology Order: CT Head Without Contrast Test: CT Head Without Contrast REASON FOR EXAMINATION: headache, near syncope eval for ich; Clinical: Headache .; ; Findings:; Age-related atrophy, periventricular leukomalacia and microvascular ischemic; changes are appreciated. The ventricles and sulci are symmetric. Richardson-white; differentiation is maintained. There is no evidence for acute intracranial; hemorrhage, mass/mass effect, pathology or infarction. No extra-axial fluid; collection. Calvarium is intact. Paranasal sinuses and mastoid air cells are; clear.; ; Impression:; Age related atrophy and microvascular ischemic changes.; No acute intracranial hemorrhage, infarction, or mass/mass effect.; ; ; Signed by; Bony Marvin MD 07/29/2016 02:08 P; Outcome: 07/29 15:52 Decision to Hospitalize by Provider. br1 07/30 15:28 Patient left the ED. dy Signatures: Dispatcher [employer] EDMS Gladis Dominique, Investment Sales Assistant Unit deg Sharifa Rene RN SERGE mcp Michelle Sen, Reg Reg gb Jasper Salgado RN Paulo Rollins MD MD br1 Ruby Payne RN RN ld5 Mack, Demeishia dem1 Sorenson, Kimberly, Reg Reg [id number] MTDD
--- NOTE | 2016-07-30 19:42 | ECGEPIP ---
Stationary ECG Study [facility] - ED Test Date: 2016-07-29 Pat Name: MATTHEW OWENS Department: Room: - Gender: M Manager Cardiac: shalom : 1945 Requested By: Uche Richmond Order Number: [id number] Reading MD: Ellyn Dawson Measurements Intervals [place] Rate: 78 P: 13 GA: 192 QRS: -15 QRSD: 97 T: 27 QT: 390 QTc: 445 Interpretive Statements SINUS RHYTHM LOW QRS VOLTAGE IN PRECORDIAL LEADS INCOMPLETE RIGHT BUNDLE BRANCH BLOCK PRWP NSTTW ABNORMALITY Electronically Signed On 07-30-2016 19:41:39 EST by Ellyn Dawson
[2016-07-30 20:00] VITALS: BP 130/62
[2016-07-30] MEDS ORDERED: ROSUVASTATIN 10 MG TAB (CRESTOR) PO SCH (21:00)
[2016-07-30] MEDS: OMEPRAZOLE 20 MG CAP PO SCH (21:08)
[2016-07-30] MEDS: CYANOCOBALAMIN 500 MCG TAB PO SCH (21:08)
[2016-07-31] VITALS: BP 113/53
[2016-07-31 04:00] VITALS: BP 140/72
[2016-07-31 05:19] LABS: MEAN CORPUSCULAR HEMOGLOBIN 24.4 pg (27.0-33.0); MEAN CORPUSCULAR HGB CONC 31.5 g/dl (32.0-36.5); MEAN CORPUSCULAR VOLUME 77.7 fl (80.0-96.0); RED CELL DISTRIBUTION WIDTH 16.5 % (11.5-14.5)
[2016-07-31 05:23] LABS: WHITE BLOOD COUNT 2.8 K/mm3 (4.0-10.0)
[2016-07-31 05:40] LABS: ANION GAP 10 MEQ/L (8-16); BLOOD UREA NITROGEN 12 MG/DL (7-18); CALCIUM LEVEL 8.4 MG/DL (8.8-10.2); CARBON DIOXIDE LEVEL 26 MEQ/L (21-32); CHLORIDE LEVEL 108 MEQ/L (98-107); CREATININE FOR GFR 0.83 MG/DL (0.70-1.30); FERRITIN 9 NG/ML (26-388); GLOMERULAR FILTRATION RATE > 60.0 (>42); GLUCOSE, FASTING 189 MG/DL (83-110); PERCENT SATURATION 6.4 % (19.7-37.4); POTASSIUM SERUM 4.3 MEQ/L (3.5-5.1); SODIUM LEVEL 144 MEQ/L (136-145); TOTAL IRON BINDING CAPACITY 360 UG/DL (250-450)
[2016-07-31] MEDS: HEPARIN SOD (PORCINE) 5000 UNITS/ML VIAL SC SCH (06:29)
[2016-07-31] MEDS ORDERED: INSULIN REGULAR SC SCH (07:30)
[2016-07-31 08:00] VITALS: BP 135/69
[2016-07-31] MEDS ORDERED: FERROUS SULFATE 325MG TAB PO SCH (09:00)
--- NOTE | 2016-07-31 09:01 | IPN ---
DATE: 07/30/2016 OVERNIGHT EVENTS: Mr. Denson was admitted overnight after experiencing a near-syncopal episode. Cardiac workup was completely unremarkable. He was ordered an electroencephalogram (EEG) in addition to a head CT. Head CT was negative for any acute bleed. He did have cycled troponins that were negative. His symptoms have completely resolved and have not recurred. He has no acute complaints which to address this morning. PHYSICAL EXAMINATION: Vitals: Temperature 98.5 degrees Fahrenheit, pulse 83, respiratory rate 22, blood pressure 133/71, oxygen saturation 97% in room air. General: He is lying comfortably in the ER bed in no acute distress. HEENT: Normocephalic, atraumatic. Pupils equal and react to light accommodation. Mucous membranes are moist. Sclerae anicteric. Neck: No apparent jugular venous distention (JVD). Cardiovascular System: Distant heart sounds with notable systolic murmur at the left upper sternal border. Regular rate and rhythm. Lungs are distant breath sounds, otherwise clear. Abdomen is obese, but soft, nontender and nondistended. Extremities: No edema or clubbing. Neurologic Examination: Good sensation and tone throughout. LABORATORY FINDINGS: CBC: White blood cell count 3.1, hemoglobin 9.9, hematocrit 32.6, and platelets 91. Comprehensive metabolic profile: Sodium 144 , potassium 4.2, chloride 108, bicarb 26, BUN 11, creatinine 0.81, glucose 183, calcium 8.6, creatinine kinase 223, CK-MB 4.6, troponin less than 0.02 times three, vitamin B12 1167, folate 12.6, TSH 2.6, free T4 0.93. ASSESSMENT/PLAN: 1. Near syncopal episode. Cardiac etiologies have been ruled out, including acute myocardial infarction (AMI). He has a history of questionable vertebrobasilar insufficiency, and he's been off Plavix for some time, so this could certainly explain his symptoms. We'll evaluate his carotid patency with an MRA of his carotids today. Autonomic dysfunction in the setting of parkinson's and GERD symptoms could also potentially explain his presenting symptoms and remains on the differential. Plavix has been reinstituted as his head CT was negative for acute bleed. Today, he will scheduled for an EEG and MRI/MRA of the brain. Physical therapy has been instituted. 2. Type 2 diabetes, insulin dependent. His home basal insulin regimen has been continued with 65 units every morning and 45 units each evening. Sliding scale with U-500 high-potency has been instituted as has a carbohydrate consistent diet. 3. Pancytopenia, chronic. Will check Iron studies today and initiate repletion as indicated. 4. Hyperlipidemia. Will increase him to a high intensity statin. He is prescribed Zocor regularly at this point. 5. Intermittent involuntary tremors. Levodopa and carbidopa have been continued. 6. Questionable history of vertebral artery insufficiency and stenosis. Obtaining MRI/ MRA today for further characterization. Plavix has been reinstituted considering his current recent complaint. 7. Deep vein thrombosis (DVT) prophylaxis in the form of subcutaneous Heparin. My preceptor for this patient encounter was Dr. Tobias. The preceptor was physically present in the building during the encounter and was fully available. As needed, all aspects of the patient interview, examination, medical decision making process, and medical care plan development were reviewed and approved by the preceptor. The preceptor is aware and concurs with the plan as stated in the body of this note and will attest to such by his/her cosignature. MIGUELANGEL
--- NOTE | 2016-07-31 09:29 | EEG ---
DATE OF STUDY: 07/30/2016 REFERRING PHYSICIAN: Dr. Santiago Tobias DIAGNOSIS: Rule out seizure. ELECTROENCEPHALOGRAM (EEG) #17-10. HISTORY: The patient is a 71-year-old man who was admitted at [facility] after a [id number] spell while having lunch with his . He felt dizzy. His symptoms lasted for 20 minutes. This EEG was done to rule out epileptic potential. There was no shaking, urinary incontinence, or tongue biting. He is currently taking Sinemet, Prilosec, simvastatin, thiamine, verapamil, Crestor, Plavix, enalapril, etc. TECHNICAL DESCRIPTION: This digital EEG was recorded by 21 scalp, ear, and two electrocardiogram (EKG) electrodes and was reviewed in bipolar and referential montages following reformatting in 10-20 international electrode placement system. INTERPRETATION: The patient was noted to be in awake and drowsy states during this EEG. Resting awake background rhythm consisted of 8-9 Hz alpha activity measuring 15-60 microvolts in amplitude, which was symmetric and reactive to eye opening. Attenuation of posterior dominant rhythm was seen during transition into drowsiness. Stage I and II sleep were reviewed and were symmetric bilaterally. Hyperventilation could not be performed. Photic stimulation remained unremarkable. EKG revealed normal sinus rhythm. No focal, lateralizing, or epileptiform abnormalities were seen. No clinical or electrographic seizures were recorded. CONCLUSION: This EEG in awake, drowsy states, stage I and II sleep is within normal limits.
[2016-07-31] MEDS: LEVEMIR (INSULIN DETEMIR) 1 UNITS/0.01ML SC SCH (10:15)
[2016-07-31] MEDS: ENALAPRIL MALEATE 5 MG TAB PO SCH (10:15)
[2016-07-31] MEDS: CLOPIDOGREL 75 MG TAB PO SCH (10:15)
[2016-07-31] MEDS: SINEMET 25-100 MG TAB PO SCH ×2 (10:15→11:50)
[2016-07-31 10:16] VITALS: BP 135/69
[2016-07-31] MEDS: THIAMINE 100 MG TAB PO SCH (10:16)
[2016-07-31] MEDS: VERAPAMIL 120 MG SR TAB PO SCH (10:16)
[2016-07-31] MEDS: [UNRECOGNIZED DRUG - SUPPLY] XX SCH ×2 (10:20→11:50)
--- NOTE | 2016-07-31 10:42 | REP ---
Clinical: Transient ischemic attack. Technique: Richardson scale and color Doppler evaluation using linear high frequency transducer Findings: Two-dimensional richardson scale and color images demonstrate intimal thickening along with mixed plaque material extending from the distal common carotid arteries through the carotid bulbs and proximal internal carotid arteries (left greater than right). Color images demonstrate normal laminar flow bilaterally with visibly narrowed lumen to the carotid bulbs (left greater than right). Color Doppler interrogation demonstrates normal arterial wave patterns and velocities with no significant spectral broadening. Normal flow direction is appreciated in the bilateral vertebral arteries. RIGHT (cm/s) LEFT (cm/s) ICA peak systolic velocity 72.7 91.3 ICA diastolic velocity 22.2 13.7 ECA peak systolic velocity 66.6 109.5 CCA peak systolic velocity 101.3 90.4 ICA/CCA ratio 0.68 1.01 Impression: Based on set standards narrowing falls within the less than 50% range which by visual inspection approaches 50% in the left carotid bulb. Signed by Bony Marvin MD 07/31/2016 10:34 A
[2016-07-31] MEDS ORDERED: ROSU10TA PO (11:16)
[2016-07-31] MEDS: INSULIN REGULAR SC SCH (11:50)
[2016-07-31 12:00] VITALS: BP 142/74
[2016-07-31 12:16] LABS: RETIC HEMOGLOBIN CONTENT CHr 25.7 PG (24-36); RETICULOCYTE % ADVIA2120 2.6 % (0.5-1.5)
[2016-07-31] MEDS ORDERED: FERR325T PO (12:25)
--- NOTE | 2016-07-31 12:28 | DS.PDOC ---
Discharge Summary General Date of Admission Jul 29, 2016 at 16:50 Date of Discharge Jul 31, 2016 Primary Care Physician: Trev Conley M.D. Specialist/Consultants Involve Physical Therapy Discharge Summary PROCEDURES PERFORMED DURING STAY: 1. Sleep-deprived EEG 2. MRI Brain 3. Non-contrast head CT 4. Bilateral carotid duplex ultrasounds. COMPLICATIONS/CHIEF COMPLAINT: Near Syncope, lightheadedness ADMISSION DIAGNOSES: 1. Pre-syncopal event 2. Question of vertebrobasilar insufficiency 3. Rule out CVA/TIA DISCHARGE DIAGNOSES: 1. Presyncope 2. Question vertebrobasilar insufficiency 3. Hyperlipidemia 4. Type 2 diabetes 5. BPH 6. Pancytopenia 7. Iron Deficiency HISTORY OF PRESENT ILLNESS: This patient is a 71-year-old male with a past medical history significant for vertebral artery insufficiency, incidental finding diabetes, gastroesophageal reflux disease (GERD), hypercholesterolemia, bilateral kidney stone, gout, tremors, who presented to [facility] on 07/29/2016 after a near syncope episode. Patient was in a diner eating lunch, after two-thirds of the meal, all of a sudden patient started having "a lightheadedness type of feeling" originating from the epigastric region radiating to the whole head. Those strange feelings lasted less than a minute and then patient felt he almost passed out and he transitioned to a phase where "I'm in a different world and everything is in slow motion" and those abnormal feelings lasted about 20 minutes and resolved without any interventions. Throughout the whole process, the patient did not lose any consciousness, however patient has increased bilateral finger shaking and that never happened before. Denies any loss of bowel or bladder control. Patient stated he is aware of the family member and friend who were in the diner with him. He is aware of what has occurred and the surroundings. He just could not respond appropriately. Denies any fevers, chills. Denies any history of seizure. Denies any pain anywhere. Denies any difficulty breathing. Patient does have a history of severe neuropathy and patient also has been experiencing chronic bilateral hand tremors. Patient also has a history of "vertebral artery blockage" diagnosed by the neurologist and the patient has been taking Plavix. Patient was diagnosed with bilateral kidney stone and patient was instructed to hold off Plavix for the past week. Patient is scheduled to have bilateral kidney stone removal by Dr. Darby on 07/30/2016. HOSPITAL COURSE: Thanh was admitted to the PCU for telemetry monitoring. His symptoms were resolved by the time of admission and did not recur throughout the admission. He successfully underwent physical therapy evaluation without any deficits. An MRI of the brain was obtained and were essentially unremarkable , without sign of acute infarct. Carotid duplex ultrasounds were ordered to evaluate for potential carotid stenosis or vertebrobasilar insufficiency, results of which were pending at the time of discharge. He underwent sleep- deprived EEG, results pending at discharge. Plavix was re-instituted after head CT was without signs of acute bleed. He was found to have iron deficiency, and he was started on iron replacement therapy three times per day prior to discharge. As he did not have recurrence of his symptoms and without deficit on neurologic exam, he was able to be discharged home on day number 3 of admission. While an exact etiology for explanation of his symptoms was not identified, it was thought that his history of dizziness/vertigo and presumed vertebrobasilar insufficiency in the setting of being off plavix for 1 week in preparation of a surgical procedure, that his symptoms were likely related to the presumed arterial insufficiency. DISCHARGE MEDICATIONS: Please see below. ALLERGIES: Please see below. PHYSICAL EXAMINATION ON DISCHARGE: VITAL SIGNS: Please see below. GENERAL: Alert, active, NAD HEENT: NC/AT. PERRLA. EOMI. MMM NECK: No masses or bruits CARDIOVASCULAR EXAMINATION: RSR, no murmurs. RESPIRATORY EXAMINATION: Clear bilaterally. ABDOMINAL EXAMINATION: Obese, soft, non-tender, non-distended. EXTREMITIES: No edema SKIN: warm, well-perfused. No rashes NEUROLOGICAL EXAMINATION: CN 2-12 in-tact bilaterally. Normal strength, tone, sensation, gait. Negative babinski, rhomberg. LABORATORY DATA: Please see below. IMAGING: Head CT: Age related atrophy and microvascular ischemic changes. No acute intracranial hemorrhage, infarction, or mass/mass effect. MRI Brain Areas of increased signal intensity on T2-weighted images are present in the periventricular and subcortical white matter. This represents small vessel ischemic disease. There is no intraparenchymal hemorrhage, infarct, mass or midline shift. The ventricular system and cortical sulci as well as subarachnoid space in the posterior fossa are dilated consistent with mild volume loss. There is no extracerebral collection. The sinuses are clear. DISCHARGE CONDITION: Stable, improved. DISPOSITION: Home. ACTIVITY: As tolerated. DIET: Carbohydrate consistent. ITEMS TO FOLLOWUP ON OUTPATIENT: 1. EEG 2. Bilateral Carotid Duplex DISCHARGE PLAN AND INSTRUCTIONS: Thanh is discharged home with regular activity and diet as previously tolerated. He is to restart plavix and discuss with urology about postponement of his scheduled procedure. Follow-up with Dr. Conley in 1 week, neurology in 1-2 weeks. Return to ED or clinic for recurrence of symptoms or new symptoms suggestive of CVA/TIA. Questions were answered prior to discharge. Patient was seen and examined by Dr. Conley, who reviewed the case with the PGY-3. He reviewed the historical findings and the imaging with the patient and his spouse and also discussed pancytopenia with the patient. Will check ferritin and iron studies and retic. count prior to discharge. TIME SPENT ON DISCHARGE: Greater than 30 minutes. Vital Signs/I&Os Vital Signs Date Time Temp Pulse Resp B/P Pulse Ox O2 Delivery O2 Flow Rate FiO2 07/31/16 10:16 77 135/69 07/31/16 08:00 96.5 18 96 Room Air I&O- Last 24 Hours up to 6 AM 07/31/16 05:59 Intake Total 1080 ml Output Total 2100 ml Balance -1020 ml Laboratory Data Labs 24H Laboratory Tests 2 07/30/16 13:29: Bedside Glucose (Misc Panel) 215H 07/30/16 16:56: Bedside Glucose (Misc Panel) 169H 07/30/16 20:59: Bedside Glucose (Misc Panel) 173H 07/31/16 04:37: Anion Gap 10, Blood Urea Nitrogen 12, Creatinine 0.83, Sodium Level 144, Potassium Level 4.3, Chloride Level 108H, Carbon Dioxide Level 26, Calcium Level 8.4L, Ferritin 9L, Glomerular Filtration Rate > 60.0, Iron Level 23L, Total Iron Binding Capacity 360, Transferrin % Saturation 6.4L 07/31/16 11:32: Bedside Glucose (Misc Panel) 334H CBC/BMP Laboratory Tests 07/31/16 04:37 Calcium Level 8.4 L, Red Blood Count 4.00 L, Mean Corpuscular Volume 77.7 L, Mean Corpuscular Hemoglobin 24.4 L, Mean Corpuscular Hemoglobin Concent 31.5 L, Red Cell Distribution Width 16.5 H FSBS Laboratory Tests Test 07/30/16 13:29 07/30/16 16:56 07/30/16 20:59 07/31/16 11:32 Range/Units Bedside Glucose (Misc Panel) 215 169 173 334 83-110 MG/DL Medications Scheduled (Cranberry Plus Vitamin C 4200-20-3 mg-Unit) 1 Cap Cap 1 CAP PO DAILY STOPPED TAKING BECAUSE OF PROCEDURE 07/30/16 Calcium/Vitamin D (Calcium 600 + D 600-400 mg-Unit) 1 Tab Tab 1 TAB PO QHS Carbidopa/Levodopa (Carbidopa/Levodopa 25-100 mg) 1 Tab Tab 1 TAB PO QID Clopidogrel Bisulfate (Plavix) 75 Mg Tab 75 MG PO DAILY STOPPED TAKING BECAUSE PROCDURE 07/30/16 Cyanocobalamin (Vitamin B-12) 1,000 Mcg Tab 1,000 MCG PO QHS Enalapril Maleate (Enalapril Maleate) 5 Mg Tab 5 MG PO DAILY Ergocalciferol (Vitamin D) 50,000 Unit Cap 50,000 UNIT PO QMONTH 1ST OF EVERY MONTH Ferrous Sulfate (Ferrous Sulfate) 325 Mg Tab 325 MG PO TID Insulin (Humulin R U-500 (Concentr) 1 Units/0.002 Ml Inj 0 SC ACHS PER SLIDING SCALE Insulin Glargine (Lantus) 1 Units/0.01 Ml Susp 65 UNITS SC QAM Insulin Glargine (Lantus) 1 Units/0.01 Ml Susp 45 UNITS SC QHS 30U TONIGHT 07/29/16 BECAUSE OF PROCEDURE Omeprazole (Prilosec) 20 Mg Cap 40 MG PO QHS Rosuvastatin (Crestor) 10 Mg Tab 20 MG PO QHS Thiamine HCl (Vitamin B-1) 100 Mg Tab 100 MG PO DAILY Verapamil Hcl (Verapamil HCl Sr) 240 Mg Tab 240 MG PO DAILY Scheduled PRN (Colchicine) 0.6 Mg Tab 0.6 MG PO DAILY PRN PRN GOUT Acetaminophen/Hydrocodone ([place] 5-325 mg) 1 Tab Tab 1 TAB PO Q6H PRN PRN PAIN Naproxen (Naproxen) 500 Mg Tab 500 MG PO BID PRN PRN PAIN HAS NOT BEEN TAKING BECAUSE OF PROCEDURE 07/30/16 Allergies Coded Allergies: Phenol (Verified Allergy, Intermediate, 07/26/16) Pramlintide (Verified Allergy, Intermediate, 07/26/16) Codeine (Unverified Adverse Reaction, Severe, HALLUCINATIONS, 09/19/12) Tetracycline (Unverified Adverse Reaction, Unknown, [id number], 09/19/12 ) DIONISIO GRAHAM DO Jul 31, 2016 12:28 Trev Conley M.D. Jul 31, 2016 12:54
--- NOTE | 2016-07-31 17:29 | ECGEPIP ---
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 Subtle nonspecific ST/T-wave abnormalities No significant change from 07/29/16 Electronically Signed On 07-31-2016 17:28:59 EST by Miguel Díaz
--- NOTE | 2016-08-01 16:29 | EDDOCDS ---
Physician Documentation [facility] Name: Thanh Desai Age: 71 yrs Sex: Male : 1945 Arrival Date: 07/29/2016 Time: 13:35 Bed Admit Hold Private MD: Disposition: 07/29/16 15:52 Hospitalization ordered by Veronica Mccallum for Inpatient Admission. Preliminary diagnosis are Syncope and collapse, Cardiac murmur, unspecified, Chest pain, unspecified. - Bed requested for PCU. - Status is Inpatient Admission. dy - Condition is Stable. - Problem is new. - Symptoms are unchanged. Historical: - Allergies: Codeine Sulfate; Morphine; TETRACYCLINES; SymlinPen 60; - Home Meds: 1. Plavix 75 mg Oral tab 1 tab once daily 2. verapamil 240 mg Oral C24P 1 cap once daily 3. vitamin B1 daily 4. simvastatin 20 mg Oral tab 1 tab once daily 5. omeprazole 40 mg Oral cpDR 1 cap once daily 6. naproxen 500 mg Oral tab 1 tab as needed 7. Humulin R U-500 (Concentrated) Insulin subcutaneous sliding scale subcutaneous 8. Lantus 65 units in am, 45 units in pm Sub-Q 9. hydrocodone-acetaminophen 5-325 mg Oral tab 1 tab every 6 hours 10. enalapril maleate 5 mg Oral tab 1 tab once daily 11. colchicine 0.6 mg Oral tab 1 tab as needed 12. Vitamin C Oral 13. Vitamin D Oral 50,000 unit monthly 14. Vitamin B-12 Oral daily 15. Calcium + Vitamin D Oral daily 16. cranberry extract-vitamin C oral oral daily 17. carbidopa-levodopa 25-100 mg Oral tab 1 tab 4 times per day - PMHx: tremors; Diabetes - IDDM: controlled; GERD; Hypercholesterolemia; Kidney stones; - Social history: No barriers to communication noted, The patient speaks fluent Tajik. - : The pt / caregiver states he / she is on anticoagulants: Plavix. Home medication list is obtained from the patient. - Exposure Risk Screening:: None identified. Vital Signs: 07/29 13:59 BP 140 / 77; Pulse 80; Resp 18; Temp 97.6(O); Pulse Ox 97% on R/A; Weight 123.83 kg / dem1 273 lbs; Height 5 ft. 11 in. (180.34 cm); Pain 0/10; 15:23 BP 152 / 67 Supine; Pulse 77; mcp 15:24 BP 138 / 62 Sitting; Pulse 74; mcp 15:24 BP 135 / 64 Standing; Pulse 78; mcp 15:28 Pulse 72 MON; Pulse Ox 95% ; ld5 15:28 BP 131 / 62 (auto/); ld5 15:43 BP 135 / 62 (auto/); ld5 15:43 Pulse 72 MON; Pulse Ox 95% ; ld5 15:58 BP 133 / 64 (auto/); ld5 15:58 Pulse 72 MON; Pulse Ox 94% ; ld5 16:29 BP 145 / 64 (auto/); ld5 16:29 Pulse 76 MON; Pulse Ox 95% ; ld5 16:43 BP 140 / 65 (auto/); ld5 16:43 Pulse 72 MON; Pulse Ox 95% ; ld5 16:58 BP 148 / 66 (auto/); ld5 16:58 Pulse 74 MON; Pulse Ox 95% ; ld5 17:13 BP 142 / 64 (auto/); ld5 17:13 Pulse 72 MON; Pulse Ox 96% ; ld5 17:43 Pulse 74 MON; Pulse Ox 95% ; ld5 17:43 BP 132 / 64 (auto/); ld5 17:58 BP 144 / 66 (auto/); ld5 17:58 Pulse 74 MON; Pulse Ox 94% ; ld5 18:13 BP 142 / 62 (auto/); ld5 18:13 Pulse 74 MON; Resp 18; Temp 99; Pulse Ox 94% ; ld5 13:59 Body Mass Index 38.08 (123.83 kg, 180.34 cm) dem1 MDM: 13:41 ECG WITH READING ER PHYS+CARDIAG ordered. EDMS 13:54 Gold Miner Blasting/Pulse Ox/q 30 min VS ordered. br1 13:54 IV Saline Lock ordered. br1 13:54 Rhythm Strip to chart ordered. br1 13:54 Undress patient appropriately for examination ordered. br1 13:54 Orthostatic VS ordered. br1 13:54 Basic Metabolic Profile Ordered. EDMS 13:54 CBC with Diff Ordered. EDMS 13:55 Cardiac Injury Profile Ordered. EDMS 13:55 Troponin Ordered. EDMS 13:55 Chest, 2 View (pa\E\lat) Ordered. EDMS 13:56 CT Head Without Contrast Ordered. EDMS 15:16 Basic Metabolic Profile Reviewed. br1 15:16 CBC with Diff Reviewed. br1 15:16 Cardiac Injury Profile Reviewed. br1 15:16 Troponin Reviewed. br1 15:16 Chest, 2 View (pa\E\lat) Reviewed. br1 15:16 CT Head Without Contrast Reviewed. br1 15:55 BED REQUEST+ADM ordered. EDMS 16:04 Financial registration complete. [email or web address] 16:23 [facility] Payment Agreement was scanned into [employer] and attached to record. [email or web address] 16:40 CARDIAC MARKER PANEL Ordered. EDMS 16:43 HEMOGLOBIN A1C Ordered. EDMS 16:43 THYROID STIMULATING HORMONE Ordered. EDMS 16:43 FREE T4 Ordered. EDMS 17:04 Admission / Observation Status ordered. EDMS 17:05 CONSISTENT CARBOHYDRATES ordered. EDMS 17:13 PHYSICAL THERAPY EVAL & TREAT ordered. EDMS 19:11 Fingerstick Blood Sugar Ordered. EDMS 19:31 FOLATE Ordered. EDMS 19:31 VITAMIN B12 LEVEL Ordered. EDMS 21:37 COMPLETE BLOOD COUNT Ordered. EDMS 21:37 CARDIAC MARKER PANEL Ordered. EDMS 21:37 BASIC METABOLIC PROFILE Ordered. EDMS 02 11:52 MRA BRAIN W/O CONTRAST Ordered. EDMS 11:52 MRI Brain without Contrast Ordered. EDMS 11:54 MRA CAROTID W/O FOL WITH Ordered. EDMS 13:38 Fingerstick Blood Sugar Ordered. EDMS 15:07 T-Sheet-- Draft Copy was scanned into [employer] and attached to record. gb 15:08 PCR was scanned into [employer] and attached to record. gb 15:08 ECG/EKG was scanned into [employer] and attached to record. gb 15:08 Radiology Report was scanned into [employer] and attached to record. gb 15:08 Rhythm Strip was scanned into [employer] and attached to record. gb Signatures: Dispatcher [employer] EDMS Sharifa Rene RN Michelle Dominguez mcp, Reg Reg gb Jasper Salgado RN RN dy Roggie, Brian, MD MD br1 Guillaume Gan RN RN [facility] Belkis Zhong, Reg Reg [email or web address] The chart was reviewed and I authenticate all verbal orders and agree with the evaluation and treatment provided.Corrections: (The following items were deleted from the chart) 07/29 21:38 19:30 CARDIAC MARKER PANEL ordered. EDMS EDMS 21:38 19:31 COMPLETE BLOOD COUNT ordered. EDMS EDMS 19:31 BASIC METABOLIC PROFILE ordered. EDMS EDMS 07/30 11:52 10:58 MRA BRAIN WITH CONTRAST ordered. EDMS EDMS 11:52 10:58 MRI Brain W/CON ordered. EDMS EDMS 11:54 10:58 MRA CAROTID WITH CONTRAST ordered. EDMS EDMS : 07/29 16:23 [facility] Payment Agreement [email or web address] 07/30 15:07 T-Sheet-- Draft Copy gb 15:08 ECG/EKG gb Chart Complete MTDD
--- NOTE | 2016-08-01 16:29 | EDDOCDS ---
Physician Documentation [facility] Name: Thanh Desai Age: 71 yrs Sex: Male : 1945 Arrival Date: 07/29/2016 Time: 13:35 Bed Admit Hold Private MD: Disposition: 07/29/16 15:52 Hospitalization ordered by Veronica Mccallum for Inpatient Admission. Preliminary diagnosis are Syncope and collapse, Cardiac murmur, unspecified, Chest pain, unspecified. - Bed requested for PCU. - Status is Inpatient Admission. dy - Condition is Stable. - Problem is new. - Symptoms are unchanged. Historical: - Allergies: Codeine Sulfate; Morphine; TETRACYCLINES; SymlinPen 60; - Home Meds: 1. Plavix 75 mg Oral tab 1 tab once daily 2. verapamil 240 mg Oral C24P 1 cap once daily 3. vitamin B1 daily 4. simvastatin 20 mg Oral tab 1 tab once daily 5. omeprazole 40 mg Oral cpDR 1 cap once daily 6. naproxen 500 mg Oral tab 1 tab as needed 7. Humulin R U-500 (Concentrated) Insulin subcutaneous sliding scale subcutaneous 8. Lantus 65 units in am, 45 units in pm Sub-Q 9. hydrocodone-acetaminophen 5-325 mg Oral tab 1 tab every 6 hours 10. enalapril maleate 5 mg Oral tab 1 tab once daily 11. colchicine 0.6 mg Oral tab 1 tab as needed 12. Vitamin C Oral 13. Vitamin D Oral 50,000 unit monthly 14. Vitamin B-12 Oral daily 15. Calcium + Vitamin D Oral daily 16. cranberry extract-vitamin C oral oral daily 17. carbidopa-levodopa 25-100 mg Oral tab 1 tab 4 times per day - PMHx: tremors; Diabetes - IDDM: controlled; GERD; Hypercholesterolemia; Kidney stones; - Social history: No barriers to communication noted, The patient speaks fluent Ukrainian. - : The pt / caregiver states he / she is on anticoagulants: Plavix. Home medication list is obtained from the patient. - Exposure Risk Screening:: None identified. Vital Signs: 07/29 13:59 BP 140 / 77; Pulse 80; Resp 18; Temp 97.6(O); Pulse Ox 97% on R/A; Weight 123.83 kg / dem1 273 lbs; Height 5 ft. 11 in. (180.34 cm); Pain 0/10; 15:23 BP 152 / 67 Supine; Pulse 77; mcp 15:24 BP 138 / 62 Sitting; Pulse 74; mcp 15:24 BP 135 / 64 Standing; Pulse 78; mcp 15:28 Pulse 72 MON; Pulse Ox 95% ; ld5 15:28 BP 131 / 62 (auto/); ld5 15:43 BP 135 / 62 (auto/); ld5 15:43 Pulse 72 MON; Pulse Ox 95% ; ld5 15:58 BP 133 / 64 (auto/); ld5 15:58 Pulse 72 MON; Pulse Ox 94% ; ld5 16:29 BP 145 / 64 (auto/); ld5 16:29 Pulse 76 MON; Pulse Ox 95% ; ld5 16:43 BP 140 / 65 (auto/); ld5 16:43 Pulse 72 MON; Pulse Ox 95% ; ld5 16:58 BP 148 / 66 (auto/); ld5 16:58 Pulse 74 MON; Pulse Ox 95% ; ld5 17:13 BP 142 / 64 (auto/); ld5 17:13 Pulse 72 MON; Pulse Ox 96% ; ld5 17:43 Pulse 74 MON; Pulse Ox 95% ; ld5 17:43 BP 132 / 64 (auto/); ld5 17:58 BP 144 / 66 (auto/); ld5 17:58 Pulse 74 MON; Pulse Ox 94% ; ld5 18:13 BP 142 / 62 (auto/); ld5 18:13 Pulse 74 MON; Resp 18; Temp 99; Pulse Ox 94% ; ld5 13:59 Body Mass Index 38.08 (123.83 kg, 180.34 cm) dem1 MDM: 13:41 ECG WITH READING ER PHYS+CARDIAG ordered. EDMS 13:54 Appraisal Manager/Pulse Ox/q 30 min VS ordered. br1 13:54 IV Saline Lock ordered. br1 13:54 Rhythm Strip to chart ordered. br1 13:54 Undress patient appropriately for examination ordered. br1 13:54 Orthostatic VS ordered. br1 13:54 Basic Metabolic Profile Ordered. EDMS 13:54 CBC with Diff Ordered. EDMS 13:55 Cardiac Injury Profile Ordered. EDMS 13:55 Troponin Ordered. EDMS 13:55 Chest, 2 View (pa\E\lat) Ordered. EDMS 13:56 CT Head Without Contrast Ordered. EDMS 15:16 Basic Metabolic Profile Reviewed. br1 15:16 CBC with Diff Reviewed. br1 15:16 Cardiac Injury Profile Reviewed. br1 15:16 Troponin Reviewed. br1 15:16 Chest, 2 View (pa\E\lat) Reviewed. br1 15:16 CT Head Without Contrast Reviewed. br1 15:55 BED REQUEST+ADM ordered. EDMS 16:04 Financial registration complete. [email or web address] 16:23 [facility] Payment Agreement was scanned into [employer] and attached to record. [email or web address] 16:40 CARDIAC MARKER PANEL Ordered. EDMS 16:43 HEMOGLOBIN A1C Ordered. EDMS 16:43 THYROID STIMULATING HORMONE Ordered. EDMS 16:43 FREE T4 Ordered. EDMS 17:04 Admission / Observation Status ordered. EDMS 17:05 CONSISTENT CARBOHYDRATES ordered. EDMS 17:13 PHYSICAL THERAPY EVAL & TREAT ordered. EDMS 19:11 Fingerstick Blood Sugar Ordered. EDMS 19:31 FOLATE Ordered. EDMS 19:31 VITAMIN B12 LEVEL Ordered. EDMS 21:37 COMPLETE BLOOD COUNT Ordered. EDMS 21:37 CARDIAC MARKER PANEL Ordered. EDMS 21:37 BASIC METABOLIC PROFILE Ordered. EDMS 02 11:52 MRA BRAIN W/O CONTRAST Ordered. EDMS 11:52 MRI Brain without Contrast Ordered. EDMS 11:54 MRA CAROTID W/O FOL WITH Ordered. EDMS 13:38 Fingerstick Blood Sugar Ordered. EDMS 15:07 T-Sheet-- Draft Copy was scanned into [email or web address] and attached to record. gb 15:08 PCR was scanned into [employer] and attached to record. gb 15:08 ECG/EKG was scanned into [employer] and attached to record. gb 15:08 Radiology Report was scanned into [employer] and attached to record. gb 15:08 Rhythm Strip was scanned into [employer] and attached to record. gb Signatures: Dispatcher [employer] EDMS Sharifa Rene RN Michelle Dominguez mcp, Reg Reg gb Jasper Salgado RN RN dy Roggie, Brian, MD MD br1 Guillaume Gan RN RN [facility] Belkis Zhong, Reg Reg [email or web address] The chart was reviewed and I authenticate all verbal orders and agree with the evaluation and treatment provided.Corrections: (The following items were deleted from the chart) 07/29 21:38 19:30 CARDIAC MARKER PANEL ordered. EDMS EDMS 21:38 19:31 COMPLETE BLOOD COUNT ordered. EDMS EDMS 19:31 BASIC METABOLIC PROFILE ordered. EDMS EDMS 07/30 11:52 10:58 MRA BRAIN WITH CONTRAST ordered. EDMS EDMS 11:52 10:58 MRI Brain W/CON ordered. EDMS EDMS 11:54 10:58 MRA CAROTID WITH CONTRAST ordered. EDMS EDMS : 07/29 16:23 [facility] Payment Agreement [email or web address] 07/30 15:07 T-Sheet-- Draft Copy gb 15:08 ECG/EKG gb Chart Complete MTDD
--- NOTE | 2016-08-01 16:29 | EDDOCDS ---
Nurse's Notes [facility] Name: Thanh Desai Age: 71 yrs Sex: Male : 1945 Arrival Date: 07/29/2016 Time: 13:35 Bed Admit Hold Private MD: Diagnosis: Syncope and collapse;Cardiac murmur, unspecified;Chest pain, unspecified Presentation: 07/29 13:40 Presenting complaint: EMS states: Was sitting at table eating lunch and had syncopal mcp episode. FSBS--247. IV established in right wrist #18. Suicide/Homicide risk assessment- the patient denies having any suicidal and/or homicidal ideations and does not present with any other emotional, behavioral or mental health complaints. Status: Patient is not a formal service waiter or dependent. Transition of care: patient was not received from another setting of care. 13:40 Acuity: HOLLEY Level 3 [facility] 13:40 Method Of Arrival: Ambulance [facility] Triage Assessment: 14:01 General: Appears in no apparent distress, comfortable, Behavior is cooperative. Pain: mcp Denies pain. Neurological: Level of Consciousness is awake, alert, Oriented to person, place, time, Moves all extremities. Speech is normal. Cardiovascular: Rhythm is sinus rhythm No ectopy. Respiratory: Airway is patent Respiratory effort is even, unlabored. Derm: Skin is pink, warm & dry. Historical: - Allergies: Codeine Sulfate; Morphine; TETRACYCLINES; SymlinPen 60; - Home Meds: 1. Plavix 75 mg Oral tab 1 tab once daily 2. verapamil 240 mg Oral C24P 1 cap once daily 3. vitamin B1 daily 4. simvastatin 20 mg Oral tab 1 tab once daily 5. omeprazole 40 mg Oral cpDR 1 cap once daily 6. naproxen 500 mg Oral tab 1 tab as needed 7. Humulin R U-500 (Concentrated) Insulin subcutaneous sliding scale subcutaneous 8. Lantus 65 units in am, 45 units in pm Sub-Q 9. hydrocodone-acetaminophen 5-325 mg Oral tab 1 tab every 6 hours 10. enalapril maleate 5 mg Oral tab 1 tab once daily 11. colchicine 0.6 mg Oral tab 1 tab as needed 12. Vitamin C Oral 13. Vitamin D Oral 50,000 unit monthly 14. Vitamin B-12 Oral daily 15. Calcium + Vitamin D Oral daily 16. cranberry extract-vitamin C oral oral daily 17. carbidopa-levodopa 25-100 mg Oral tab 1 tab 4 times per day - PMHx: tremors; Diabetes - IDDM: controlled; GERD; Hypercholesterolemia; Kidney stones; - Social history: No barriers to communication noted, The patient speaks fluent Vietnamese. - : The pt / caregiver states he / she is on anticoagulants: Plavix. Home medication list is obtained from the patient. - Exposure Risk Screening:: None identified. Screenin:27 Screening information is obtained from the patient. Fall risk: No risks identified. mcp Assistance ADL's: requires no assistance with activities of daily living. Abuse/DV Screen: The patient / caregiver reports he/she is: not in a situation that causes fear, pain or injury. Nutritional screening: No deficits noted. Advance Directives: There is no active DNR order. home support is adequate. Assessment: 14:00 General: Appears in no apparent distress, Behavior is cooperative. Neurological: Level mcp of Consciousness is awake, alert, Oriented to person, place, time, Moves all extremities. Speech is normal. Cardiovascular: Rhythm is sinus rhythm No ectopy. Respiratory: Airway is patent Respiratory effort is even, unlabored. Derm: Skin is pink, warm & dry. 15:26 General: Appears in no apparent distress, comfortable, Behavior is cooperative. Pain: mcp Location: back and neck Pain currently is 4 out of 10 on a pain scale. Neurological: Level of Consciousness is awake, alert, Oriented to person, place, time, Moves all extremities. Speech is normal. Cardiovascular: Rhythm is sinus rhythm No ectopy. Respiratory: Airway is patent Respiratory effort is even, unlabored. Derm: Skin is pink, warm & dry. 15:45 General: Appears in no apparent distress, Behavior is cooperative, pleasant. Pain: ld5 Location: neck Pain currently is 4 out of 10 on a pain scale. Neurological: Level of Consciousness is awake, obeys commands, Oriented to person, place, time, Access Control Officer are equal bilaterally. Neurological: Denies weakness dizziness. Respiratory: Airway is patent Respiratory effort is even, unlabored. GI: Abdomen is obese, Bowel sounds present X 4 quads. Abd is soft and non tender X 4 quads. Denies nausea, vomiting. Derm: Skin is intact, Skin is dry. 16:30 General: Appears in no apparent distress, Behavior is cooperative. Neurological: Level ld5 of Consciousness is awake, alert. Respiratory: Airway is patent Respiratory effort is even, unlabored. 17:30 General: Hospitalist in to assess pt. ld5 17:55 General: Appears in no apparent distress, Behavior is cooperative, pleasant. General: ld5 Pt aware of plan for admission and plan to stay in ER pending monitored bed availability. Family members remain at bedside. Will continue to monitor. Pain: Pain currently is 2 out of 10 on a pain scale. Neurological: Level of Consciousness is awake, alert. Respiratory: Airway is patent Respiratory effort is even, unlabored. 18:22 General: Pt sitting up in bed. Admission RN in with pt. Respirations easy and ld5 unlabored. Will continue to monitor. 18:22 General: Report given to [facility] RN fowler. ld5 Vital Signs: 13:59 BP 140 / 77; Pulse 80; Resp 18; Temp 97.6(O); Pulse Ox 97% on R/A; Weight 123.83 kg; dem1 Height 5 ft. 11 in. (180.34 cm); Pain 0/10; 15:23 BP 152 / 67 Supine; Pulse 77; mcp 15:24 BP 138 / 62 Sitting; Pulse 74; mcp 15:24 BP 135 / 64 Standing; Pulse 78; mcp 15:28 Pulse 72 MON; Pulse Ox 95% ; ld5 15:28 BP 131 / 62 (auto/); ld5 15:43 BP 135 / 62 (auto/); ld5 15:43 Pulse 72 MON; Pulse Ox 95% ; ld5 15:58 BP 133 / 64 (auto/); ld5 15:58 Pulse 72 MON; Pulse Ox 94% ; ld5 16:29 BP 145 / 64 (auto/); ld5 16:29 Pulse 76 MON; Pulse Ox 95% ; ld5 16:43 BP 140 / 65 (auto/); ld5 16:43 Pulse 72 MON; Pulse Ox 95% ; ld5 16:58 BP 148 / 66 (auto/); ld5 16:58 Pulse 74 MON; Pulse Ox 95% ; ld5 17:13 BP 142 / 64 (auto/); ld5 17:13 Pulse 72 MON; Pulse Ox 96% ; ld5 17:43 Pulse 74 MON; Pulse Ox 95% ; ld5 17:43 BP 132 / 64 (auto/); ld5 17:58 BP 144 / 66 (auto/); ld5 17:58 Pulse 74 MON; Pulse Ox 94% ; ld5 18:13 BP 142 / 62 (auto/); ld5 18:13 Pulse 74 MON; Resp 18; Temp 99; Pulse Ox 94% ; ld5 13:59 Body Mass Index 38.08 (123.83 kg, 180.34 cm) dem1 Vitals: 13:59 Log In Time N/A - ambulance arrival. [facility] ED Course: 13:35 Patient visited by Gladis Dominique, Sheet Rock Taper. deg 13:35 Patient moved to Waiting deg 13:38 Patient moved to 8 deg 13:41 Triage Initiated mcp 13:44 Paulo Villanueva MD is Attending Physician. br1 13:54 Patient visited by Paulo Villanueva MD. br1 13:55 on site services specialist on. Pulse ox on. NIBP on. dem1 13:55 EKG done. (by ED staff). Reviewed by Paulo Villanueva MD. dem1 13:59 Patient visited by Tanesha Bearden. dem1 14:00 Maintain field IV. Dressing intact. Good blood return noted. Site clean & dry. Gauge & mcp site: #18 right wrist. 14:02 Patient visited by Sharifa Rene, SERGE. mcp 14:34 Basic Metabolic Profile Sent. mcp 14:34 CBC with Diff Sent. mcp 14:34 Cardiac Injury Profile Sent. mcp 14:34 Troponin Sent. mcp 14:54 CT Head Without Contrast Returned. EDMS 14:54 Chest, 2 View (pa\E\lat) Returned. EDMS 15:27 The patient / caregiver is instructed regarding the plan of care and ED course. Patient mcp has correct armband on for positive identification. Placed in gown. Placed in psych safe attire. Bed in low position. Call light in reach. Side rails up X2. Adult w/ patient. 15:29 Patient visited by Sharifa Rene, RN. mcp 15:52 Veronica Mccallum is Hospitalizing Provider. br1 16:15 Patient visited by Ruby Payne,SERGE. ld5 16:23 [facility] Payment Agreement was scanned into [employer] and attached to record. [email or web address] 16:30 Patient visited by Ruby Payne,RN. ld5 17:28 Patient visited by Ruby Payne,RN. ld5 17:43 Patient moved to Admit Hold deg 17:46 Patient visited by Ruby Payne,RN. ld5 17:58 Patient visited by Ruby Payne,RN. ld5 18:22 Patient visited by Ruby Payne,SERGE. ld5 07/30 15:07 T-Sheet-- Draft Copy was scanned into [employer] and attached to record. gb 15:08 PCR was scanned into [employer] and attached to record. gb 15:08 ECG/EKG was scanned into [employer] and attached to record. gb 15:08 Radiology Report was scanned into [employer] and attached to record. gb 15:08 Rhythm Strip was scanned into [employer] and attached to record. gb Attachments: 15:08 Rhythm Strip gb Order Results: Lab Order: Basic Metabolic Profile; [facility] 07/29/16 14:33 Test: GLUCOSE, FASTING; Value: 236; Range: 83-110; Abnormal: Above high normal; Units: MG/DL; Status: F Test: BLOOD UREA NITROGEN; Value: 12; Range: 7-18; Units: MG/DL; Status: F Test: CREATININE FOR GFR; Value: 0.96; Range: 0.70-1.30; Units: MG/DL; Status: F Test: GLOMERULAR FILTRATION RATE; Value: > 60.0; Range: >42; Status: F Test: SODIUM LEVEL; Value: 142; Range: 136-145; Units: MEQ/L; Status: F Test: POTASSIUM SERUM; Value: 3.9; Range: 3.5-5.1; Units: MEQ/L; Status: F Test: CHLORIDE LEVEL; Value: 108; Range: 98-107; Abnormal: Above high normal; Units: MEQ/L; Status: F Test: CARBON DIOXIDE LEVEL; Value: 24; Range: 21-32; Units: MEQ/L; Status: F Test: ANION GAP; Value: 10; Range: 8-16; Units: MEQ/L; Status: F Test: CALCIUM LEVEL; Value: 8.2; Range: 8.8-10.2; Abnormal: Below low normal; Units: MG/DL; Status: F Test Note: ; Units are mL/min/1.73 m2 Chronic Kidney Disease Staging per NKF: Stage I & II GFR >=60 Normal to Mildly Decreased Stage III GFR 30-59 Moderately Decreased Stage IV GFR 15-29 Severely Decreased Stage V GFR <15 Very Little GFR Left ESRD GFR <15 on ALL AROUND PRESSER Lab Order: CBC with Diff; SPEC'M 07/29/16 14:33 Test: WHITE BLOOD COUNT; Value: 3.5; Range: 4.0-10.0; Abnormal: Below low normal; Units: K/mm3; Status: F Test: RED BLOOD COUNT; Value: 4.46; Range: 4.30-6.10; Units: M/mm3; Status: F Test: HEMOGLOBIN; Value: 10.6; Range: 14.0-18.0; Abnormal: Below low normal; Units: g/dl; Status: F Test: HEMATOCRIT; Value: 34.2; Range: 42.0-52.0; Abnormal: Below low normal; Units: %; Status: F Test: MEAN CORPUSCULAR VOLUME; Value: 76.7; Range: 80.0-96.0; Abnormal: Below low normal; Units: fl; Status: F Test: MEAN CORPUSCULAR HEMOGLOBIN; Value: 23.8; Range: 27.0-33.0; Abnormal: Below low normal; Units: pg; Status: F Test: MEAN CORPUSCULAR HGB CONC; Value: 31.0; Range: 32.0-36.5; Abnormal: Below low normal; Units: g/dl; Status: F Test: RED CELL DISTRIBUTION WIDTH; Value: 16.3; Range: 11.5-14.5; Abnormal: Above high normal; Units: %; Status: F Test: PLATELET COUNT, AUTOMATED; Value: 102; Range: 150-450; Abnormal: Below low normal; Units: k/mm3; Status: F Test: NEUTROPHILS %; Value: 72.7; Range: 36.0-66.0; Abnormal: Above high normal; Units: %; Status: F Test: LYMPH %; Value: 13.7; Range: 24.0-44.0; Abnormal: Below low normal; Units: %; Status: F Test: MONO %; Value: 8.6; Range: 0.0-5.0; Abnormal: Above high normal; Units: %; Status: F Test: EOS %; Value: 2.0; Range: 0.0-3.0; Units: %; Status: F Test: BASO %; Value: 0.7; Range: 0.0-1.0; Units: %; Status: F Test: LARGE UNSTAINED CELL %; Value: 2.3; Range: 0.0-4.0; Units: %; Status: F Test: NEUTROPHILS #; Value: 2.5; Range: 1.8-7.7; Units: K/mm3; Status: F Test: LYMPH #; Value: 0.5; Range: 1.5-4.5; Abnormal: Below low normal; Units: K/mm3; Status: F Test: MONO #; Value: 0.3; Range: 0.0-0.8; Units: K/mm3; Status: F Test: EOS #; Value: 0.1; Range: 0.0-0.50; Units: K/mm3; Status: F Test: BASO #; Value: 0.0; Range: 0.0-0.2; Units: K/mm3; Status: F Test: LARGE UNSTAINED CELL #; Value: 0.1; Range: 0.0-0.4; Units: K/mm3; Status: F Lab Order: Cardiac Injury Profile; [facility] 07/29/16 14:33 Test: CPK CREATINE PHOSPHOKINASE; Value: 186; Range: 39-308; Units: U/L; Status: F Test: CK-MB VALUE MASS; Value: 4.8; Range: 0.0-3.6; Abnormal: Above high normal; Units: NG/ML; Status: F Test: MB/CK RELATIVE INDEX; Value: 2.58; Range: < OR =4; Status: F Test Note: ; DIAGNOSIS CRITERIA MMB ng/ml Relative Index (RI) NON-AMI < or = 5 N/A RICHARDSON ZONE > 5 < or = 4 AMI > 5 > 4 Lab Order: Troponin; SPEC'M 07/29/16 14:33 Test: TROPONIN I; Value: < 0.02; Range: < 0.10; Units: NG/ML; Status: F Test Note: ; Troponin I Reference Interval for Selleration LOCI: 99th Percentile= 0.00-0.045 ng/ml Risk Stratification: <= 0.10 ng/ml Decreased Risk for Adverse Clinical Events. 0.10-1.50 ng/ml Increased Risk for Adverse Clinical Events. Evaluation of additional criterion and/or repeat testing in 2-6 hours is suggested to rule out myocardial damage. >= 1.50 ng/ml Indicative of Myocardial Injury. Lab Order: CARDIAC MARKER PANEL; [facility] 07/29/16 19:54 Test: CPK CREATINE PHOSPHOKINASE; Value: 200; Range: 39-308; Units: U/L; Status: F Test: CK-MB VALUE MASS; Value: 4.4; Range: 0.0-3.6; Abnormal: Above high normal; Units: NG/ML; Status: F Test: MB/CK RELATIVE INDEX; Value: 2.20; Range: < OR =4; Status: F Test: TROPONIN I; Value: < 0.02; Range: < 0.10; Units: NG/ML; Status: F Test Note: ; DIAGNOSIS CRITERIA MMB ng/ml Relative Index (RI) NON-AMI < or = 5 N/A R[place] ZONE > 5 < or = 4 AMI > 5 > 4 Lab Order: HEMOGLOBIN A1C; [facility] 07/29/16 14:32 Test: HEMOGLOBIN A1c; Value: 8.9; Range: 4.5-6.2; Abnormal: Above high normal; Units: %; Status: F Test: ESTIMATED AVERAGE GLUCOSE; Value: 209; Range: 60-110; Abnormal: Above high normal; Units: MG/DL; Status: F Lab Order: THYROID STIMULATING HORMONE; [facility] 07/29/16 14:32 Test: THYROID STIMULATING HORMONE; Value: 2.680; Range: 0.358-3.740; Units: uIU/ML; Status: F Lab Order: FREE T4; [facility] 07/29/16 14:32 Test: FREE T4; Value: 0.93; Range: 0.76-1.46; Units: NG/DL; Status: F Lab Order: Fingerstick Blood Sugar; [facility] 07/29/16 19:02 Test: BEDSIDE GLUCOSE; Value: 107; Range: 83-110; Units: MG/DL; Status: F Lab Order: FOLATE; [facility] 07/30/16 05:29 Test: FOLATE; Value: 12.6; Range: >5.4; Units: NG/ML; Status: F Test Note: ; FOLATE NORMAL RANGE NORMAL GREATER THAN 5.4 NG/ML INDETERMINATE 3.4-5.4 NG/ML DEFICIENT LESS THAN 3.4 NG/ML Lab Order: VITAMIN B12 LEVEL; SPEC07/30/16 05:29 Test: VITAMIN B12 LEVEL; Value: 1167; Range: 247-911; Abnormal: Above high normal; Units: PG/ML; Status: F Test Note: ; VITAMIN B12 NORMAL RANGE NORMAL 247 - 911 PG/ML INDETERMINATE 211 - 246 PG/ML DEFICIENT LESS THAN 211 PG/ML Lab Order: COMPLETE BLOOD COUNT; SPEC07/30/16 05:29 Test: WHITE BLOOD COUNT; Value: 3.1; Range: 4.0-10.0; Abnormal: Below low normal; Units: K/mm3; Status: F Test: RED BLOOD COUNT; Value: 4.18; Range: 4.30-6.10; Abnormal: Below low normal; Units: M/mm3; Status: F Test: HEMOGLOBIN; Value: 9.9; Range: 14.0-18.0; Abnormal: Below low normal; Units: g/dl; Status: F Test: HEMATOCRIT; Value: 32.6; Range: 42.0-52.0; Abnormal: Below low normal; Units: %; Status: F Test: MEAN CORPUSCULAR VOLUME; Value: 78.1; Range: 80.0-96.0; Abnormal: Below low normal; Units: fl; Status: F Test: MEAN CORPUSCULAR HEMOGLOBIN; Value: 23.6; Range: 27.0-33.0; Abnormal: Below low normal; Units: pg; Status: F Test: MEAN CORPUSCULAR HGB CONC; Value: 30.3; Range: 32.0-36.5; Abnormal: Below low normal; Units: g/dl; Status: F Test: RED CELL DISTRIBUTION WIDTH; Value: 16.6; Range: 11.5-14.5; Abnormal: Above high normal; Units: %; Status: F Test: PLATELET COUNT, AUTOMATED; Value: 91; Range: 150-450; Abnormal: Below low normal; Units: k/mm3; Status: F Lab Order: CARDIAC MARKER PANEL; SPEC07/30/16 05:29 Test: CPK CREATINE PHOSPHOKINASE; Value: 223; Range: 39-308; Units: U/L; Status: F Test: CK-MB VALUE MASS; Value: 4.6; Range: 0.0-3.6; Abnormal: Above high normal; Units: NG/ML; Status: F Test: MB/CK RELATIVE INDEX; Value: 2.06; Range: < OR =4; Status: F Test: TROPONIN I; Value: < 0.02; Range: < 0.10; Units: NG/ML; Status: F Test Note: ; DIAGNOSIS CRITERIA MMB ng/ml Relative Index (RI) NON-AMI < or = 5 N/A R[place] ZONE > 5 < or = 4 AMI > 5 > 4 Lab Order: BASIC METABOLIC PROFILE; SPEC'M 07/30/16 05:29 Test: GLUCOSE, FASTING; Value: 183; Range: 83-110; Abnormal: Above high normal; Units: MG/DL; Status: F Test: BLOOD UREA NITROGEN; Value: 11; Range: 7-18; Units: MG/DL; Status: F Test: CREATININE FOR GFR; Value: 0.81; Range: 0.70-1.30; Units: MG/DL; Status: F Test: GLOMERULAR FILTRATION RATE; Value: > 60.0; Range: >42; Status: F Test: SODIUM LEVEL; Value: 144; Range: 136-145; Units: MEQ/L; Status: F Test: POTASSIUM SERUM; Value: 4.2; Range: 3.5-5.1; Units: MEQ/L; Status: F Test: CHLORIDE LEVEL; Value: 108; Range: 98-107; Abnormal: Above high normal; Units: MEQ/L; Status: F Test: CARBON DIOXIDE LEVEL; Value: 26; Range: 21-32; Units: MEQ/L; Status: F Test: ANION GAP; Value: 10; Range: 8-16; Units: MEQ/L; Status: F Test: CALCIUM LEVEL; Value: 8.6; Range: 8.8-10.2; Abnormal: Below low normal; Units: MG/DL; Status: F Test Note: ; Units are mL/min/1.73 m2 Chronic Kidney Disease Staging per NKF: Stage I & II GFR >=60 Normal to Mildly Decreased Stage III GFR 30-59 Moderately Decreased Stage IV GFR 15-29 Severely Decreased Stage V GFR <15 Very Little GFR Left ESRD GFR <15 on ALL AROUND PRESSER Lab Order: Fingerstick Blood Sugar; SPEC'M 07/30/16 13:29 Test: BEDSIDE GLUCOSE; Value: 215; Range: 83-110; Abnormal: Above high normal; Units: MG/DL; Status: F Radiology Order: Chest, 2 View (pa\E\lat) Test: Chest, 2 View (pa\E\lat) REASON FOR EXAMINATION: Syncope; Clinical: Syncope.; ; Technique: PA and lateral.; ; Comparison: 07/22/2016.; ; Findings:; Mediastinum and cardiac silhouette stable. Moderate elevation of the right; hemidiaphragm unchanged. No acute consolidation, effusion, or pneumothorax.; Skeletal structures intact.; ; Impression:; Chronic stable changes. No acute cardiopulmonary process.; ; ; Signed by; Bony Marvin MD 07/29/2016 02:15 P; Radiology Order: CT Head Without Contrast Test: CT Head Without Contrast REASON FOR EXAMINATION: headache, near syncope eval for ich; Clinical: Headache .; ; Findings:; Age-related atrophy, periventricular leukomalacia and microvascular ischemic; changes are appreciated. The ventricles and sulci are symmetric. Richardson-white; differentiation is maintained. There is no evidence for acute intracranial; hemorrhage, mass/mass effect, pathology or infarction. No extra-axial fluid; collection. Calvarium is intact. Paranasal sinuses and mastoid air cells are; clear.; ; Impression:; Age related atrophy and microvascular ischemic changes.; No acute intracranial hemorrhage, infarction, or mass/mass effect.; ; ; Signed by; Bony Marvin MD 07/29/2016 02:08 P; Outcome: 07/29 15:52 Decision to Hospitalize by Provider. br1 07/30 15:28 Patient left the ED. dy Signatures: Dispatcher [employer] EDMS Gladis Dominique, Sheet Rock Taper Unit deg Sharifa Rene RN SERGE mcp Michelle Sen, Reg Reg gb Jasper Salgado RN Paulo Rollins MD MD br1 Ruby Payne RN RN ld5 Mack, Demeishia dem1 Sorenson, Kimberly, Reg Reg [email or web address] Chart Complete MTDD
[2016-08-13] MEDS ORDERED: SIMV40TA2 PO (06:54)
== END 2016-07-31 13:22 | disposition home or self-care (01) ==
LOC: M ED 13:35 → M ED INP 16:50 → M PCU 07-30 15:16
PROVIDERS: ADMIT Internal Medicine; ATTEND Family Medicine
DX: R55 Syncope and collapse (principal); E78.4 Other hyperlipidemia; E11.42 Type 2 diabetes mellitus with diabetic polyneuropathy; N40.0 Benign prostatic hyperplasia without lower urinary tract symptoms; D61.818 Other pancytopenia; D50.9 Iron deficiency anemia, unspecified; K21.9 Gastro-esophageal reflux disease without esophagitis; M10.9 Gout, unspecified; Z79.899 Other long term (current) drug therapy; Z79.02 Long term (current) use of antithrombotics/antiplatelets; Z79.4 Long term (current) use of insulin; E78.00 Pure hypercholesterolemia, unspecified; Z87.891 Personal history of nicotine dependence
CPT/HCPCS: 36415; 70450; 70551; 71020; 80048; 82550; 82553; 82607; 82728; 82746; 83036; 83550; 84439; 84443; 84484; 85025; 85027; 85046; 93005; 93041; 93880; 95819; 97161; 99284; G0378; G8978; G8979; G8980

== ENCOUNTER → 2016-08-13 | Day surgery (SDC) | payer MEDICARE ==
[~2016-08-13] VITALS: Ht 180.3 cm; Wt 122.4 kg
[~2016-08-13] MED LIST changes: +CALCTAB68 PO; +COLC1TAB13 PO; +CONRAY-60 60% 50ML VIAL (Q9961) As Ordered ONE; +CONRAY-60 60% 50ML VIAL (Q9961) XX ONE; +ENAL5TAB PO; +FERR325T PO; +GLYCOPYRROLATE INJ 0.2 MG/ML 2 ML VIAL As Ordered ONE; +HumaLOG INSULIN (NovoLOG) PER UNIT As Ordered ONE; +HumaLOG INSULIN (NovoLOG) PER UNIT SC ONE; +LR 1,000 ML IV SCH; +MIDAZOLAM INJ 2 MG/2 ML VIAL (J2250) As Ordered ONE; +NAPR500T2 PO; +NEOSTIGMINE 1MG/ML 5 ML SYRINGE (J2710) As Ordered ONE; +NORC5TAB PO; +ONDANSETRON 4MG/2ML VIAL (J2405) As Ordered ONE; +ONDANSETRON 4MG/2ML VIAL (J2405) IV PRN; +PERCOCET 5MG/325MG TAB PO PRN; +PHENYLephrine HCL 500 MCG/5 ML (100MCG/ML) SYRINGE (J2370) As Ordered ONE; +PROPOFOL 500 MG/50 ML VIAL As Ordered ONE; +ROCURONIUM BROMIDE 50 MG/5 ML VIAL As Ordered ONE; +ROSU10TA PO; +SIMV40TA2 PO; +VERA240T14 PO; +VITA10002 PO; +VITA100T2 PO; +fentaNYL 100 MCG/2 ML INJECTION (J3010) As Ordered ONE; +fentaNYL 100 MCG/2 ML INJECTION (J3010) IV PRN; +oxyBUTYnin 5 MG TAB PO PRN
--- NOTE | 2016-08-13 11:51 | REP ---
C-ARM VIEWS DURING RETROGRADE PYELOGRAM BILATERALLY: Four C-arm views are performed. The first image shows a stent and wire in the left ureter with contrast partially opacifying the left pelvicaliceal system. The second image shows a stent and a wire in the right ureter with contrast injected, partially opacifying the right pelvicaliceal system. There is subsequent placement of bilateral ureteral stents. Proximal end of each stent is coiled in the renal pelvis bilaterally. The distal end of each stent is coiled in the region of the urinary bladder. 1 minute 13 seconds fluoroscopy time utilized for the procedure. Signed by Francisco Richardson MD 08/13/2016 08:31 P
[2016-08-13 14:20] VITALS: BP 148/72
--- NOTE | 2016-08-14 09:42 | RO ---
DATE OF PROCEDURE: 08/13/2016 PREPROCEDURE DIAGNOSIS: Bilateral kidney stones. POSTPROCEDURE DIAGNOSIS: Bilateral kidney stones, bilateral ureteral strictures. PROCEDURE: Cystoscopy, Bilateral Ureteroscopy with Laser Lithotripsy and Basket Extraction of Stones, Bilateral Balloon Dilation of Ureteral Strictures, Bilateral Retrograde Pyelograms with Intraoperative Interpretation of Images, Bilateral Ureteral Stent Placement SURGEON: Jonatan Darby MD PE MANAGER: None. ANESTHESIA: General. OPERATIVE INDICATIONS: This is a 71-year-old male who had bilateral nonobstructive kidney stones who was brought to the operating room today for the above-listed procedure. DESCRIPTION OF PROCEDURE: The patient was brought to the operating room, and general anesthesia was induced. Prophylactic antibiotics were infused. He was then placed in the dorsal lithotomy position and prepped and draped in the usual sterile fashion. A rigid cystoscope was inserted into the urethral meatus and advanced into the bladder. At this point, a guidewire was advanced up the left collecting system, and then next a ureteral access sheath was advanced over the wire up into the left collecting system. At this point, I went up with the flexible ureteroscope; and of note, at the area in the proximal ureter, there appeared to be significant ureteral narrowing. I was not able to advance the ureteroscope past this area. Therefore, I balloon dilated this area and then, after that point, I was able to pass the scope into the left kidney. The kidney was then thoroughly examined, and within the upper pole of the kidney, there were several stones. Some of these stones were grasped and retrieved with a basket. The larger stone was broken down with a 200 micron laser fiber into smaller pieces, and then those fragments were removed. Once I cleared all the stones, a retrograde pyelogram was performed, and it was negative for extravasation. I then removed the access sheath and utilized the previously-placed wire to advance a 7-Palestinian x 22-32 cm double J ureteral stent up into the left collecting system. The wire was then removed, and there were adequate curls of the stent in the left renal pelvis and in the bladder. I then turned my attention to the right collecting system and advanced the wire up into the right collecting system. I then advanced the access sheath over the wire up into the right collecting system and then went up with the ureteroscope. Also, in this side, there was significant narrowing in the proximal ureter, and I could not advance the scope into the kidney. I, therefore, balloon dilated this area; and after that point, I was able to pass the scope into the right kidney. Within the lower pole calyx, an 8 mm stone was seen. This stone was then repositioned out of the lower pole calyx into an upper pole calyx. The stone was then fragmented into several smaller pieces using a 200 micron laser fiber. All the fragments were then removed; and then once satisfied that all the fragments were removed, a retrograde pyelogram was performed. It was negative for extravasation. At this point, the access sheath was removed, and no additional stones were seen in the ureter. I then utilized the previously-placed wire to advance a 7-Palestinian by 22-32 cm double J ureteral stent up into the right collecting system. The wire was then removed, and there were adequate curls of the stent in the right renal pelvis and in the bladder. The bladder was then emptied of all fluid, and this marked the conclusion of the procedure. The patient was then taken out of the dorsal lithotomy position, awakened from anesthesia, and transported to the recovery room in stable condition. ESTIMATED BLOOD LOSS: 0 mL. COMPLICATIONS: None. SPECIMENS: Kidney stone fragments. PLAN: I leave the patient's stents in place for 3 or 4 weeks. I will then take the stents out in the office. MIGUELANGEL
== END | disposition home or self-care (01) ==
LOC: M SDC 06:05
PROVIDERS: ATTEND Urology
DX: N20.0 Calculus of kidney (principal); E11.42 Type 2 diabetes mellitus with diabetic polyneuropathy; Z79.4 Long term (current) use of insulin; K21.9 Gastro-esophageal reflux disease without esophagitis; I10 Essential (primary) hypertension; E78.4 Other hyperlipidemia; Z86.73 Personal history of transient ischemic attack (TIA), and cerebral infarction without residual deficits; Z79.02 Long term (current) use of antithrombotics/antiplatelets; Z79.899 Other long term (current) drug therapy
CPT/HCPCS: 52352; 52356; 74420; 82360; 88300; C2617; J0690; J2250; J2370; J2405; J2710; J3010; Q9961

== ENCOUNTER → 2016-08-16 | Outpatient (REF) | payer MEDICARE ==
[~2016-08-16] MED LIST changes: -CONRAY-60 60% 50ML VIAL (Q9961) As Ordered ONE; -CONRAY-60 60% 50ML VIAL (Q9961) XX ONE; -GLYCOPYRROLATE INJ 0.2 MG/ML 2 ML VIAL As Ordered ONE; -HumaLOG INSULIN (NovoLOG) PER UNIT As Ordered ONE; -HumaLOG INSULIN (NovoLOG) PER UNIT SC ONE; -LR 1,000 ML IV SCH; -MIDAZOLAM INJ 2 MG/2 ML VIAL (J2250) As Ordered ONE; -NEOSTIGMINE 1MG/ML 5 ML SYRINGE (J2710) As Ordered ONE; -ONDANSETRON 4MG/2ML VIAL (J2405) As Ordered ONE; -ONDANSETRON 4MG/2ML VIAL (J2405) IV PRN; -PERCOCET 5MG/325MG TAB PO PRN; -PHENYLephrine HCL 500 MCG/5 ML (100MCG/ML) SYRINGE (J2370) As Ordered ONE; -PROPOFOL 500 MG/50 ML VIAL As Ordered ONE; -ROCURONIUM BROMIDE 50 MG/5 ML VIAL As Ordered ONE; -fentaNYL 100 MCG/2 ML INJECTION (J3010) As Ordered ONE; -fentaNYL 100 MCG/2 ML INJECTION (J3010) IV PRN; -oxyBUTYnin 5 MG TAB PO PRN
== END ==
LOC: M SFHCCLAY 17:43
PROVIDERS: ATTEND Family Medicine
DX: R30.0 Dysuria (principal)
CPT/HCPCS: 81002; 87086; G0463

== ENCOUNTER → 2016-08-17 | Outpatient (REF) | payer MEDICARE ==
[2016-08-17 17:06] LABS: ALBUMIN/GLOBULIN RATIO 0.81 (1.00-1.93); ALKALINE PHOSPHATASE 77 U/L (45-117); ALT/SGPT < 6 U/L (12-78); ANION GAP 9 MEQ/L (8-16); AST/SGOT 17 U/L (15-37); BILIRUBIN,TOTAL 0.7 MG/DL (0.2-1.0); BLOOD UREA NITROGEN 28 MG/DL (7-18); CARBON DIOXIDE LEVEL 27 MEQ/L (21-32); CHLORIDE LEVEL 102 MEQ/L (98-107); CREATININE FOR GFR 1.24 MG/DL (0.70-1.30); GLOMERULAR FILTRATION RATE > 60.0 (>42); GLUCOSE, FASTING 194 MG/DL (83-110); POTASSIUM SERUM 3.8 MEQ/L (3.5-5.1); SODIUM LEVEL 138 MEQ/L (136-145); TOTAL PROTEIN 6.7 GM/DL (6.4-8.2)
[2016-08-17 17:18] LABS: BASO % 0.2 % (0.0-1.0); EOS # 0.1 K/mm3 (0.0-0.50); EOS % 1.5 % (0.0-3.0); LARGE UNSTAINED CELL # 0.2 K/mm3 (0.0-0.4); LARGE UNSTAINED CELL % 2.9 % (0.0-4.0); LYMPH # 0.6 K/mm3 (1.5-4.5); LYMPH % 9.2 % (24.0-44.0); MEAN CORPUSCULAR HEMOGLOBIN 25.1 pg (27.0-33.0); MEAN CORPUSCULAR HGB CONC 31.4 g/dl (32.0-36.5); MEAN CORPUSCULAR VOLUME 79.8 fl (80.0-96.0); MONO # 0.6 K/mm3 (0.0-0.8); MONO % 9.3 % (0.0-5.0); NEUTROPHILS # 4.6 K/mm3 (1.8-7.7); NEUTROPHILS % 76.8 % (36.0-66.0); PLATELET COUNT, AUTOMATED 137 k/mm3 (150-450); RED CELL DISTRIBUTION WIDTH 17.9 % (11.5-14.5)
== END ==
LOC: M SFHCCLAY 10:25
PROVIDERS: ATTEND Family Medicine
DX: R53.81 Other malaise (principal); R30.0 Dysuria

== ENCOUNTER → 2016-09-22 | Outpatient (REF) | payer MEDICARE ==
[~2016-09-22] MED LIST changes: -COLA100C PO; +COLA100C3 PO; +CRES10TA32 PO; +NORC1TAB4 PO; -NORC5TAB PO; -ROSU10TA PO
[2016-09-22 18:14] LABS: BASO % 0.4 % (0.0-1.0); EOS # 0.2 K/mm3 (0.0-0.50); EOS % 3.5 % (0.0-3.0); LARGE UNSTAINED CELL # 0.1 K/mm3 (0.0-0.4); LARGE UNSTAINED CELL % 1.5 % (0.0-4.0); LYMPH # 0.7 K/mm3 (1.5-4.5); LYMPH % 13.3 % (24.0-44.0); MEAN CORPUSCULAR HGB CONC 31.1 g/dl (32.0-36.5); MEAN CORPUSCULAR VOLUME 80.3 fl (80.0-96.0); MONO # 0.4 K/mm3 (0.0-0.8); MONO % 8.1 % (0.0-5.0); NEUTROPHILS # 3.3 K/mm3 (1.8-7.7); NEUTROPHILS % 73.2 % (36.0-66.0); PLATELET COUNT, AUTOMATED 118 k/mm3 (150-450); RED CELL DISTRIBUTION WIDTH 17.2 % (11.5-14.5); WHITE BLOOD COUNT 4.6 K/mm3 (4.0-10.0)
== END ==
LOC: M SFHCCLAY 13:54
PROVIDERS: ATTEND Family Medicine
DX: D61.818 Other pancytopenia (principal); E11.42 Type 2 diabetes mellitus with diabetic polyneuropathy; Z79.4 Long term (current) use of insulin; Z79.899 Other long term (current) drug therapy
CPT/HCPCS: 82270; 85025; G0463

== ENCOUNTER → 2016-10-25 | Outpatient (CLI) | payer MEDICARE ==
--- NOTE | 2016-10-25 12:59 | REP ---
Clinical: Ureteral stricture. Findings: The kidneys demonstrate normal reniform shape and echogenicity with cortical thinning consistent with chronic medical renal disease. Bilateral nephrolithiasis is appreciated along with moderate right-sided and mild left-sided hydronephrosis. The bladder is incompletely distended but grossly unremarkable. The prostate gland appears prominent. A right ureteral jet is noted while the left ureteral jet is not visualized and left ureteral obstruction cannot be excluded. Prevoid bladder measures 130 ml. Postvoid bladder equals 24 ml. Postvoid residual equals 18%. Impression: Kidneys demonstrate bilateral nephrolithiasis, cortical thinning and bilateral hydronephrosis (right greater than left). Absence of left ureteral jet in the bladder cannot exclude ureteral obstruction. Signed by Bony Marvin MD 10/25/2016 12:49 P
== END ==
LOC: M SMT 10:00
PROVIDERS: ATTEND Urology
DX: N13.5 Crossing vessel and stricture of ureter without hydronephrosis (principal); N13.30 Unspecified hydronephrosis; N20.0 Calculus of kidney

== ENCOUNTER → 2016-11-05 | Outpatient (CLI) | payer MEDICARE ==
--- NOTE | 2016-11-05 09:42 | REP ---
CT study abdomen and pelvis without IV or oral contrast: History: Ureteral stricture. Comparison CT study July 02, 2016. Comparison retrograde pyelogram images August 13, 2016. Bilateral hydronephrosis and cortical thinning and intrarenal calculi were seen sonographically on October 25, [address] findings: Preliminary medicinal chemist radiograph shows clips in the right lower quadrant. Bowel gas pattern is normal. The lung bases are clear. There is no evidence of pleural effusion. A small quantity of ascites is seen. A micronodular liver contour is seen with hypertrophy of the left lobe and splenomegaly. The splenic vein is dilated. There are scattered mesenteric and retroperitoneal lymph nodes, which are unchanged from July 02, 2016. There are small granular gallstones in the dependent portion the gallbladder. There is moderate right-sided hydronephrosis. The proximal ureter is dilated to the level of the lower pole of the right kidney and then abruptly tapers. No obvious mass lesion is seen. No calculus is noted there. There is an intrarenal calculus in the right kidney measuring 8 mm in diameter at the lower pole. There is no hydronephrosis on the left. There is an intrarenal calculus in the left kidney at mid pole level anteriorly measuring 5 mm in greatest diameter. There is a parapelvic cyst in the upper pole of the left kidney. No ureteral calculus is observed on either side. No bladder calculus is seen. There are a few prostate calcifications. Postsurgical changes are seen in the left inguinal soft tissues as well as in the right lower quadrant. There is a small quantity of fluid in the anterior pelvic reflections just above the urinary bladder representing minimal ascites. The patient is status post posterior element lower lumbar spine fusion. In the anterior abdominal wall there is a subcutaneous, subdermal process measuring approximately 8 cm in medial to lateral span by 7.8 cm craniocaudal by 1.7 cm in depth. This is unchanged from the recent study of July 02, 2016. Some lesser changes were noted in April 2015 prior study. Impression: Cholelithiasis. Bilateral nephrolithiasis. Right-sided moderate hydronephrosis to the level of the proximal ureter. A proximal ureteral stricture is seen at this level. No ureteral calculus is observed on either side. Postoperative changes in the abdomen. Findings compatible with cirrhosis and splenomegaly and minimal ascites. A stable broad soft tissue density is seen in the subcutaneous fat of the right upper anterior abdominal wall, unchanged from the prior study. This should be correlated clinically. This process was present in 2015 as well although it is a bit more extensive. Signed by Ronaldo Vyas MD 11/05/2016 11:19 A
== END ==
LOC: M RAD 07:31
PROVIDERS: ATTEND Urology
DX: N13.30 Unspecified hydronephrosis (principal); N20.0 Calculus of kidney; K80.20 Calculus of gallbladder without cholecystitis without obstruction

== ENCOUNTER → 2016-11-09 | Outpatient (REF) | payer MEDICARE ==
[~2016-11-09] MED LIST changes: +CIPR500T3 PO; +CIPR500T89 PO; +TYLE325T5 PO
== END ==
LOC: M SMT 12:42
PROVIDERS: ATTEND Nurse Practitioner Family
DX: R30.0 Dysuria (principal)
CPT/HCPCS: 81001; 87086; G0463

== ENCOUNTER → 2016-11-26 | Outpatient (REF) | payer MEDICARE ==
[~2016-11-26] MED LIST changes: -CIPR500T89 PO; -TYLE325T5 PO
[2016-11-26 13:29] LABS: INR 1.11
[2016-11-26 13:38] LABS: MEAN CORPUSCULAR HGB CONC 32.5 g/dl (32.0-36.5); MEAN CORPUSCULAR VOLUME 89.1 fl (80.0-96.0); RED CELL DISTRIBUTION WIDTH 17.6 % (11.5-14.5); WHITE BLOOD COUNT 3.5 K/mm3 (4.0-10.0)
[2016-11-26 13:44] LABS: ALBUMIN 3.7 GM/DL (3.2-5.2); ALBUMIN/GLOBULIN RATIO 1.06 (1.00-1.93); BILIRUBIN,TOTAL 0.6 MG/DL (0.2-1.0); CALCIUM LEVEL 8.3 MG/DL (8.8-10.2); CREATININE FOR GFR 1.53 MG/DL (0.70-1.30); GLOMERULAR FILTRATION RATE 47.9 (>42); TOTAL PROTEIN 7.2 GM/DL (6.4-8.2)
[2016-11-26 13:48] LABS: POTASSIUM SERUM 5.2 MEQ/L (3.5-5.1)
== END ==
LOC: M SFHCCLAY 08:46
PROVIDERS: ATTEND Nurse Practitioner Family
DX: Z01.818 Encounter for other preprocedural examination (principal); N20.0 Calculus of kidney; N13.5 Crossing vessel and stricture of ureter without hydronephrosis; R30.0 Dysuria

== ENCOUNTER 2016-12-06 06:12 | Day surgery (SDC) | payer MEDICARE ==
[~2016-12-06] VITALS: Ht 182.9 cm; Wt 122.0 kg
[2016-12-06] VITALS (8 sets, daily range): BP systolic 139–196; BP diastolic 63–86; O2SAT 94
[2016-12-06] MEDS: CIPROFLOXACIN 500 MG TAB PO SCH ×2 (06:00→18:11)
[~2016-12-06 06:12] MED LIST changes: -APAP325T PO; +APAP325T4 PO; -CALC600T21 PO; +CALC600T60 PO; -COLA100C3 PO; +COLA100C5 PO; +FERR1TAB8 PO; -FERR325T PO; -NAPR250T2 PO; +NAPR250T4 PO; -NAPR500T2 PO; +NAPR500T3 PO; +PLAV1TAB2 PO; -PLAV75TA38 PO; -SENO8.6T2 PO; +SENO8.6T5 PO; +VITA1CAP40 PO; -VITA50003 PO
[2016-12-06] MEDS ORDERED: LR 1,000 ML IV SCH ×2 (06:30→10:45)
[2016-12-06] MEDS ORDERED: MIDAZOLAM INJ 2 MG/2 ML VIAL (J2250) As Ordered ONE (07:13)
[2016-12-06] MEDS ORDERED: PROPOFOL 200 MG/20 ML VIAL As Ordered ONE ×2 (07:13→07:14)
[2016-12-06] MEDS ORDERED: ROCURONIUM BROMIDE 50 MG/5 ML VIAL/SYRINGE As Ordered ONE (07:13)
[2016-12-06] MEDS ORDERED: ONDANSETRON 4MG/2ML VIAL (J2405) As Ordered ONE (07:13)
[2016-12-06] MEDS ORDERED: dexameTHASONE 4 MG/ML 1ML VIAL (J1100) As Ordered ONE (07:13)
[2016-12-06] MEDS ORDERED: LIDOCAINE 2% INJ 100 MG/5 ML SDV (FOR ANES.) As Ordered ONE (07:14)
[2016-12-06] MEDS ORDERED: fentaNYL 100 MCG/2 ML INJECTION (J3010) As Ordered ONE (07:14)
[2016-12-06] MEDS: DOCUSATE SODIUM 100 MG CAP PO SCH ×2 (09:00→20:27)
[2016-12-06] MEDS ORDERED: CONRAY-60 60% 50ML VIAL (Q9961) As Ordered ONE (09:40)
[2016-12-06] MEDS ORDERED: GLUCAGON FOR INJ 1 MG VIAL (J1610) SC PRN (09:45)
[2016-12-06] MEDS ORDERED: GLUCOSE 4 GM CHEW TABLET PO PRN (09:45)
[2016-12-06] MEDS ORDERED: NORCO, ANEXSIA 5/325MG TABLET (HYDROcodone/ACETAMINOPHEN) PO PRN ×2 (09:45→10:45)
[2016-12-06] MEDS ORDERED: ONDANSETRON 4MG/2ML VIAL (J2405) IV PRN ×2 (09:45→10:45)
[2016-12-06] MEDS ORDERED: ACETAMINOPHEN TAB 650MG DOSE (2X325MG) PO PRN (09:45)
[2016-12-06] MEDS ORDERED: DEXTROSE 50% 50 ML SYRINGE IV PRN (09:45)
[2016-12-06] MEDS ORDERED: fentaNYL 100 MCG/2 ML INJECTION (J3010) IV PRN (10:45)
[2016-12-06] MEDS ORDERED: HUMULIN R U SQ ONE (11:30)
[2016-12-06] MEDS ORDERED: HUMULIN R U SQ SCH ×3 (12:00→17:30)
[2016-12-06] MEDS ORDERED: HUMULIN R U-500 KWIKPEN 500UNITS/ML 3ML SYRINGE (J1815 PER 5UNITS) SQ SCH ×2 (12:00→17:30)
--- NOTE | 2016-12-06 12:14 | REP ---
Clinical: Nephrolithiasis. Technique: Intraoperative fluoroscopic images. Findings: Limited intraoperative fluoroscopic images demonstrate catheters within the bilateral ureters extending to the mid-right ureter and left ureteropelvic junction. Total fluoroscopic time 54 seconds. Impression: Limited retrograde pyelogram images as described above. Signed by Bony Marvin MD 12/06/2016 09:33 A
[2016-12-06] MEDS: VERAPAMIL 120 MG SR TAB PO SCH (13:28)
[2016-12-06] MEDS: SINEMET 25-100 MG TAB PO SCH ×2 (13:28→20:27)
--- NOTE | 2016-12-06 14:01 | RO ---
DATE OF PROCEDURE: 12/06/2016 PREPROCEDURE DIAGNOSIS: Right ureteral stricture, bilateral kidney stones. POSTPROCEDURE DIAGNOSIS: Right ureteral stricture, bilateral kidney stones. PROCEDURE: Cystoscopy, bilateral ureteroscopy and right sided endopyelotomy, bilateral retrograde pyelograms with intraoperative interpretation of images. SURGEON: Dr. Jonatan Darby PROFESSOR OF GRAPHIC DESIGN: None. ANESTHESIA: Spinal. OPERATIVE INDICATIONS: This is a 71-year-old male who on recent CT scan was found to have right sided hydronephrosis due to what appeared to be a proximal right ureteral stricture as well as bilateral kidney stones. He was brought to the operating room today for treatment. DESCRIPTION OF PROCEDURE: The patient was brought to the operating room where spinal anesthesia was administered. Prophylactic antibiotics were infused. He was then placed in dorsal lithotomy position, and prepped and draped in the usual sterile fashion. A rigid cystoscope was inserted into the urethral meatus and advanced into the bladder. Once within the bladder, the wire was advanced up the left collecting system. A ureteral access sheath was then advanced over the wire up into the left collecting system. Once that was done, the wire was secured to the drape to serve as a safety wire. I went up the access sheath with a flexible ureteroscope and examined the kidney thoroughly and no stones were seen anywhere within any of the calices of the left kidney. I took another good look around and did not see any stones indicating that the stone that was seen on CT scan had probably passed. A retrograde pyelogram was performed and was negative for extravasation of hydronephrosis. At this point, the access sheath was removed along with the wire and no stones were seen within the ureter. The wire was then advanced up the right collecting system. Of note, it only went as far as the proximal ureter. I then advanced an access sheath over the wire up into the right collecting system. Within the access sheath, the flexible ureteroscope was advanced and within the proximal ureter, there was a completely obliterated ureter. I could not find the lumen. I did a retrograde pyelogram and no contrast flowed into the right kidney at all. At this point, I attempted to laser at the center of the ureter to break through the stricture and of note, this opened the ureter up a little bit but it still did not open the stricture enough to get into the right renal pelvis. I could not advance the wire up. I tried another retrograde pyelogram and no contrast went to the right kidney. After trying at this for a while to try to find the true lumen, it was clear that I was not going to be able to get the scope into the right kidney as the ureter was completely obliterated. At this point, I stopped the procedure and drained the bladder of all fluid. The patient was then taken out of dorsal lithotomy position, awakened from anesthesia and transported to the recovery room in stable condition. ESTIMATED BLOOD LOSS: 0 mL. COMPLICATIONS: None. SPECIMENS: None. PLAN: I will keep the patient overnight and plan to get him sent to interventional radiology tomorrow morning for right nephrostomy tube placement. Of note, this patient will likely require either a right ureteroureterostomy or a right dismembered pyeloplasty for treatment of the stricture. MIGUELANGEL
[2016-12-06] MEDS: HUMULIN R U SQ SCH (17:41)
[2016-12-06] MEDS: OMEPRAZOLE 20 MG CAP PO SCH (18:00)
[2016-12-06] MEDS: ENALAPRIL MALEATE 5 MG TAB PO SCH (18:11)
[2016-12-06] MEDS: NORCO, ANEXSIA 5/325MG TABLET (HYDROcodone/ACETAMINOPHEN) PO PRN (18:12)
[2016-12-06] MEDS ORDERED: OMEPRAZOLE 20 MG CAP PO SCH (21:00)
[2016-12-06] MEDS ORDERED: HumaLOG INSULIN (NovoLOG) PER UNIT SC SCH (21:00)
[2016-12-07] MEDS ORDERED: NS 1,000 ML IV SCH
[2016-12-07 01:00] VITALS: BP 147/85
[2016-12-07] MEDS: CIPROFLOXACIN 500 MG TAB PO SCH (05:19)
[2016-12-07 06:00] VITALS: BP 137/65
[2016-12-07] MEDS: HUMULIN R U SQ SCH ×3 (07:30→17:30)
[2016-12-07] MEDS ORDERED: HUMULIN R U SQ SCH ×2 (07:30→12:00)
[2016-12-07 07:38] LABS: MEAN CORPUSCULAR HEMOGLOBIN 29.5 pg (27.0-33.0); MEAN CORPUSCULAR HGB CONC 33.2 g/dl (32.0-36.5); MEAN CORPUSCULAR VOLUME 88.9 fl (80.0-96.0); RED CELL DISTRIBUTION WIDTH 17.1 % (11.5-14.5); WHITE BLOOD COUNT 3.6 K/mm3 (4.0-10.0)
[2016-12-07 07:48] LABS: CALCIUM LEVEL 8.5 MG/DL (8.8-10.2); CREATININE FOR GFR 1.51 MG/DL (0.70-1.30); GLOMERULAR FILTRATION RATE 48.6 (>42); POTASSIUM SERUM 4.7 MEQ/L (3.5-5.1)
[2016-12-07] MEDS: DOCUSATE SODIUM 100 MG CAP PO SCH (09:19)
[2016-12-07 09:38] VITALS: BP 137/65
[2016-12-07] MEDS: ENALAPRIL MALEATE 5 MG TAB PO SCH (09:38)
[2016-12-07] MEDS: SINEMET 25-100 MG TAB PO SCH (09:38)
[2016-12-07] MEDS: VERAPAMIL 120 MG SR TAB PO SCH (09:38)
[2016-12-07] MEDS: NORCO, ANEXSIA 5/325MG TABLET (HYDROcodone/ACETAMINOPHEN) PO PRN ×2 (09:39→18:27)
--- NOTE | 2016-12-07 09:46 | IPNPDOC ---
Assessment/Plan Date Seen The patient was seen on 12/07/16. Patient Summary This is a 71 y/o M POD1 s/p cysto, b/l ureteroscopy and right endopyelotomy. He was admitted o/n in preparation for right perc nephrostomy tube placement today as I was unable to gain access to his right kidney. Plan/VTE VTE Prophylaxis Ordered?: Yes VTE Exclusion Mechanical Proph: N/A:VTE Prophy Ordered Plan - plan for IR today for right perc nephrostomy tube placement - SSI - norco prn pain - NPO until he goes to IR - can resume diabetic diet after IR and then plan for discharge home Subjective Review oF Systems Chief Complaint The patient is a 71-year-old male admitted with a reason for visit of Nephrolithiasis, Ureteral Stricture. Events since Last Encounter No acute events o/n. He notes mild right flank pain. Denies nausea or vomiting. No f/c/ns. Objective Physical Examination General Exam: Alert, Cooperative, No Acute Distress Skin Exam: Nl turgor and temperature Neuro Exam: Normal Speech Psych Exam: Mental status NL, Mood NL Vital Signs/I&O Vital Signs Date Time Temp Pulse Resp B/P (MAP) Pulse Ox O2 Delivery O2 Flow Rate FiO2 12/07/16 06:00 98.5 87 20 137/65 (89) 96 Room Air I&O- Last 24 Hours up to 6 AM 12/07/16 05:59 Intake Total 1890 ml Output Total 650 ml Balance 1240 ml Laboratory Data Labs 24H Laboratory Tests 2 12/06/16 10:32: Bedside Glucose (Misc Panel) 287H 12/06/16 12:12: Bedside Glucose (Misc Panel) 276H 12/06/16 16:45: Bedside Glucose (Misc Panel) 327H 12/06/16 20:08: Bedside Glucose (Misc Panel) 329H 12/07/16 07:15: Anion Gap 7L, Glomerular Filtration Rate 48.6, Blood Urea Nitrogen 22H, Creatinine 1.51H, Sodium Level 139, Potassium Level 4.7, Chloride Level 109H, Carbon Dioxide Level 23, Calcium Level 8.5L CBC/BMP Laboratory Tests 12/07/16 07:15 Red Blood Count 3.55 L, Mean Corpuscular Volume 88.9, Mean Corpuscular Hemoglobin 29.5, Mean Corpuscular Hemoglobin Concent 33.2, Red Cell Distribution Width 17.1 H, Calcium Level 8.5 L FSBS Laboratory Tests Test 12/06/16 10:32 12/06/16 12:12 12/06/16 16:45 12/06/16 20:08 Range/Units Bedside Glucose (Misc Panel) 287 276 327 329 83-110 MG/DL ESTELA SANTIAGO MD Dec 07, 2016 09:46
[2016-12-07 10:00] VITALS: BP 136/64
[2016-12-07 10:50] VITALS: O2SAT 90
[2016-12-07] MEDS ORDERED: LIDOCAINE 2% MDV 20 ML VIAL As Ordered ONE (13:45)
[2016-12-07] MEDS ORDERED: ISOVUE-300 61% 50ML VIAL (Q9967) As Ordered ONE (13:45)
[2016-12-07] MEDS ORDERED: fentaNYL 100 MCG/2 ML INJECTION (J3010) As Ordered ONE (14:24)
[2016-12-07] MEDS ORDERED: MIDAZOLAM INJ 2 MG/2 ML VIAL (J2250) As Ordered ONE (14:24)
[2016-12-07] MEDS ORDERED: CIPROFLOXACIN/D5W 400 MG/200 ML BAG (J0744) As Ordered ONE (14:51)
[2016-12-07] MEDS ORDERED: CIPR-249 PO (15:09)
[2016-12-07] MEDS ORDERED: TYLE325T5 PO (15:23)
[2016-12-07 16:00] VITALS: BP 114/55
[2016-12-07] MEDS: OMEPRAZOLE 20 MG CAP PO SCH (18:27)
--- NOTE | 2016-12-07 18:50 | REPKIM ---
CLINICAL HISTORY: Right sided hydronephrosis and ureteral stricture. The referring urology service has requested nephrostomy urinary diversion tube placement on the right. PROCEDURE PERFORMED: 1. Ultrasound Right Kidney 2. Percutaneous Nephrostomy catheter placement and Nephrostogram INTERVENTIONALIST: Corinne Kevin MD CONSENT: The risks, benefits and alternatives to the procedure were explained to the patient and informed written consent was obtained. SEDATION: Sedation and analgesia was provided by the Anesthesiology Dept. MEDICATIONS: Local Lidocaine, Cipro CONTRAST: 9 mL Isovue 300 EBL: less than 5 mL FLUORO TIME: 1.5 minutes DEVICE USED: Resolve 10F catheter Lot #[id number] PROCEDURE/FINDINGS: The patient was brought to the interventional radiology suite and placed in the prone position. Ultrasound of the right kidney showed moderate hydronephrosis. The patient was prepped and draped in a usual sterile fashion. Time out procedure was performed. Using ultrasound and fluoroscopy guidance, a 21-gauge Accustick needle was advanced into the targeted posterior calyx, after infiltration of the skin and deep tissues with local anesthetic. Using this access an Accustick catheter was introduced into the renal pelvis. Initial aspirate revealed dark blood tinged urine. A sample of urine sent for culture. Over a guidewire, a 10-Latvian nephrostomy drainage catheter was introduced. Its distal loop was formed and locked in the renal pelvis. Contrast was hand injected, confirming satisfactory drainage catheter position. This also showed there is no free antegrade flow of contrast into the urinary bladder. The drainage catheter was then secured to the skin with 2-0 Prolene suture and covered with a sterile dressing. The drainage catheter was flushed and connected to a gravity drainage bag. The patient tolerated the procedure well with no immediate complications. This procedure was performed using ultrasound and fluoroscopy. Dr. Kevin was present. FINDINGS: 1. Ultrasound demonstrates moderate hydronephrosis. Nephrostogram demonstrates no free antegrade flow of contrast into the ureter/urinary bladder. 2. Successful placement of 10-Latvian percutaneous nephrostomy urinary diversion tube. IMPRESSION: Moderate hydronephrosis secondary to obstructive ureteral stricture on the right. Successful placement of 10F nephrostomy urinary diversion tube as discussed above. cc: Jonatan Darby MD [facility]
== END 2016-12-07 19:05 | disposition home or self-care (01) ==
LOC: M SDC 06:12 → M MS5PR 11:35 → M SDC 12-07 19:05
PROVIDERS: ATTEND Urology
DX: N13.5 Crossing vessel and stricture of ureter without hydronephrosis (principal); N20.0 Calculus of kidney; I10 Essential (primary) hypertension; E10.40 Type 1 diabetes mellitus with diabetic neuropathy, unspecified; E78.5 Hyperlipidemia, unspecified; M12.9 Arthropathy, unspecified; K21.9 Gastro-esophageal reflux disease without esophagitis; R29.898 Other symptoms and signs involving the musculoskeletal system; G47.30 Sleep apnea, unspecified; M10.9 Gout, unspecified; R30.0 Dysuria; M50.01 Cervical disc disorder with myelopathy, high cervical region; C43.0 Malignant melanoma of lip; R06.83 Snoring; R01.1 Cardiac murmur, unspecified; Z88.1 Allergy status to other antibiotic agents; Z88.5 Allergy status to narcotic agent; Z88.8 Allergy status to other drugs, medicaments and biological substances; Z79.899 Other long term (current) drug therapy; Z79.4 Long term (current) use of insulin; Z86.73 Personal history of transient ischemic attack (TIA), and cerebral infarction without residual deficits; Z98.1 Arthrodesis status; Z87.891 Personal history of nicotine dependence; Z87.440 Personal history of urinary (tract) infections
CPT/HCPCS: 36415; 50432; 52341; 74420; 80048; 85027; 87075; 87086; 87205; C1726; C1769; C1887; C1894; C2617; J0690; J0744; J1100; J1815; J2250; J2405; J3010; Q9961; Q9967

== ENCOUNTER → 2017-01-07 | Outpatient (REF) | payer MEDICARE ==
[~2017-01-07] MED LIST changes: +CIPR-249 PO; +TYLE325T5 PO
[2017-01-07 12:34] LABS: MEAN CORPUSCULAR HEMOGLOBIN 28.3 pg (27.0-33.0); MEAN CORPUSCULAR HGB CONC 31.8 g/dl (32.0-36.5); MEAN CORPUSCULAR VOLUME 88.8 fl (80.0-96.0); RED CELL DISTRIBUTION WIDTH 15.1 % (11.5-14.5); WHITE BLOOD COUNT 4.6 K/mm3 (4.0-10.0)
[2017-01-07 12:49] LABS: ANION GAP 14 MEQ/L (8-16); BLOOD UREA NITROGEN 17 MG/DL (7-18); CALCIUM LEVEL 8.3 MG/DL (8.8-10.2); CARBON DIOXIDE LEVEL 21 MEQ/L (21-32); CHLORIDE LEVEL 108 MEQ/L (98-107); CREATININE FOR GFR 1.18 MG/DL (0.70-1.30); GLOMERULAR FILTRATION RATE > 60.0 (>42); GLUCOSE, FASTING 236 MG/DL (83-110); POTASSIUM SERUM 4.3 MEQ/L (3.5-5.1); SODIUM LEVEL 143 MEQ/L (136-145)
[2017-01-07 14:04] LABS: INR 1.23
== END ==
LOC: M LABSMT 08:51 → M LABDRAWC 08:56
PROVIDERS: ATTEND Urology
DX: Z01.818 Encounter for other preprocedural examination (principal); N13.5 Crossing vessel and stricture of ureter without hydronephrosis; N39.0 Urinary tract infection, site not specified

== ENCOUNTER → 2017-01-07 | Outpatient (CLI) | payer MEDICARE ==
--- NOTE | 2017-01-07 09:49 | REP ---
CHEST, TWO VIEWS: Two view of the chest are performed and compared to a prior study of 07/22/2016. Calcified granuloma in the right mid-lung zone is again noted as well as scattered interstitial fibrotic scarring particularly in the lung bases. There is chronic elevation of the right hemidiaphragm. There is no acute infiltrate. The heart is normal in size. There is mild calcification of the thoracic aorta. The mediastinal silhouette is unchanged. There are diffuse degenerative changes of the spine. IMPRESSION: Stable chronic findings without evidence of acute infiltrate.
== END ==
LOC: M CLY 08:54
PROVIDERS: ATTEND Urology
DX: Z01.818 Encounter for other preprocedural examination (principal); N13.5 Crossing vessel and stricture of ureter without hydronephrosis; N39.0 Urinary tract infection, site not specified

== ENCOUNTER 2017-01-14 06:02 | Inpatient (IN) | payer MEDICARE ==
[~2017-01-14] VITALS: Ht 182.9 cm; Wt 120.2 kg
[2017-01-14] MEDS ORDERED: LR 1,000 ML IV SCH ×2 (06:15→15:15)
[2017-01-14] MEDS ORDERED: fentaNYL 250 MCG/5 ML INJECTION (J3010) As Ordered ONE (07:00)
[2017-01-14] MEDS ORDERED: MIDAZOLAM INJ 2 MG/2 ML VIAL (J2250) As Ordered ONE (07:03)
[2017-01-14] MEDS ORDERED: PROPOFOL 500 MG/50 ML VIAL As Ordered ONE ×6 (07:13→13:33)
[2017-01-14] MEDS ORDERED: SCOPOLAMINE 1.5 MG TRANSDERMAL As Ordered ONE (07:16)
[2017-01-14] MEDS ORDERED: BUPIVACAINE HCL 0.25% 30 ML VIAL As Ordered ONE (07:20)
[2017-01-14] MEDS ORDERED: LIDOCAINE 1% SDV INJ 30 ML VIAL As Ordered ONE (07:20)
[2017-01-14] MEDS ORDERED: ACETAMINOPHEN TAB 650MG DOSE (2X325MG) PO PRN (07:30)
[2017-01-14] MEDS ORDERED: MORPHINE 2 MG/ML 1ML SYRINGE IV PRN ×2 (07:30→15:15)
[2017-01-14] MEDS ORDERED: ONDANSETRON 4MG/2ML VIAL (J2405) IV PRN ×2 (07:30→15:15)
[2017-01-14] MEDS ORDERED: LR 1,000 ML IV ONE (07:30)
[2017-01-14] MEDS ORDERED: SCOPOLAMINE 1.5 MG TRANSDERMAL TOP ONE (07:30)
[2017-01-14] MEDS ORDERED: METOCLOPRAMIDE INJ 10MG/2ML VIAL (J2765) As Ordered ONE (08:07)
[2017-01-14] MEDS ORDERED: dexameTHASONE 4 MG/ML 1ML VIAL (J1100) As Ordered ONE ×2 (08:07→15:52)
[2017-01-14] MEDS ORDERED: PHENYLephrine HCL 500 MCG/5 ML (100MCG/ML) SYRINGE (J2370) As Ordered ONE (08:16)
[2017-01-14] MEDS ORDERED: VECURONIUM BROMIDE 10 MG VIAL As Ordered ONE ×3 (08:21→14:22)
[2017-01-14] MEDS: DOCUSATE SODIUM 100 MG CAP PO SCH ×2 (09:00→23:00)
[2017-01-14] MEDS ORDERED: REMIFENTANIL 1MG 3ML VIAL As Ordered ONE ×3 (10:05→12:23)
[2017-01-14] MEDS ORDERED: PHENYLEPHRINE INJ 10MG/ML VIAL (J2370) As Ordered ONE (12:25)
[2017-01-14] MEDS ORDERED: HEPARIN SOD (PORCINE) 5000 UNITS/ML VIAL SC SCH (14:00)
[2017-01-14] MEDS ORDERED: PROPOFOL 200 MG/20 ML VIAL As Ordered ONE (14:09)
[2017-01-14] MEDS ORDERED: SUGAMMADEX SODIUM 500 MG/5 ML VIAL (BRIDION) As Ordered ONE (14:11)
[2017-01-14] MEDS ORDERED: ONDANSETRON 4MG/2ML VIAL (J2405) As Ordered ONE (14:12)
[2017-01-14] MEDS ORDERED: HumaLOG INSULIN (NovoLOG) PER UNIT As Ordered ONE (14:57)
[2017-01-14] MEDS ORDERED: fentaNYL 100 MCG/2 ML INJECTION (J3010) IV PRN (15:15)
[2017-01-14] MEDS ORDERED: NORCO, ANEXSIA 5/325MG TABLET (HYDROcodone/ACETAMINOPHEN) PO PRN (15:15)
[2017-01-14 15:27] LABS: MEAN CORPUSCULAR HEMOGLOBIN 29.1 pg (27.0-33.0); MEAN CORPUSCULAR HGB CONC 32.4 g/dl (32.0-36.5); MEAN CORPUSCULAR VOLUME 89.9 fl (80.0-96.0); RED CELL DISTRIBUTION WIDTH 14.6 % (11.5-14.5); WHITE BLOOD COUNT 9.2 K/mm3 (4.0-10.0)
[2017-01-14] MEDS ORDERED: HumaLOG INSULIN (NovoLOG) PER UNIT SC ONE (15:45)
[2017-01-14 15:51] LABS: CALCIUM LEVEL 8.2 MG/DL (8.8-10.2); CREATININE FOR GFR 1.94 MG/DL (0.70-1.30); GLOMERULAR FILTRATION RATE 36.4 (>42)
[2017-01-14 16:13] LABS: POTASSIUM SERUM 6.8 MEQ/L (3.5-5.1)
[2017-01-14 16:55] VITALS: BP 137/65
[2017-01-14] MEDS: NS 1,000 ML IV SCH ×2 (17:23→22:59)
[2017-01-14] MEDS ORDERED: GLUCAGON FOR INJ 1 MG VIAL (J1610) SC PRN (17:30)
[2017-01-14] MEDS ORDERED: ENTER DRUG NAME HERE (PATIENT'S OWN MED) SQ SCH (17:30)
[2017-01-14] MEDS ORDERED: DEXTROSE 50% 50 ML SYRINGE IV PRN (17:30)
[2017-01-14] MEDS ORDERED: GLUCOSE 4 GM CHEW TABLET PO PRN (17:30)
[2017-01-14] MEDS ORDERED: FUROSEMIDE 20 MG/2 ML VIAL (J1940) IV ONE (17:45)
[2017-01-14 17:55] VITALS: BP 134/60
[2017-01-14] MEDS: ceFAZolin SOD 1 GM in D5W MINI-BAG PLUS 50 ML IV SCH (17:57)
[2017-01-14] MEDS: NORCO, ANEXSIA 5/325MG TABLET (HYDROcodone/ACETAMINOPHEN) PO PRN ×2 (18:46→23:01)
[2017-01-14 19:55] VITALS: BP 141/67
[2017-01-14 20:16] LABS: CALCIUM LEVEL 8.5 MG/DL (8.8-10.2); CREATININE FOR GFR 1.84 MG/DL (0.70-1.30); GLOMERULAR FILTRATION RATE 38.7 (>42)
[2017-01-14 20:21] LABS: POTASSIUM SERUM 6.2 MEQ/L (3.5-5.1)
[2017-01-14] MEDS: ENALAPRIL MALEATE 5 MG TAB PO SCH (20:29)
--- NOTE | 2017-01-14 20:33 | ROOPDOC ---
[facility] Report Of Operation Report of Operation DATE OF PROCEDURE: 01/14/17 PREPROCEDURE DIAGNOSES: Right Ureteral Stricture. POSTPROCEDURE DIAGNOSES: Right Ureteral Stricture. PROCEDURE: Right Robotic-assisted Laparoscopic Renal Exploration and Plastic Operation on Renal Pelvis with Aborted Pyeloplasty. SURGEON: Estela Santiago MD ELEVATOR OPERATOR FREIGHT: Sue Lawler MD ANESTHESIA: General. OPERATIVE INDICATIONS: This is a 71 year old male with a proximal right ureteral stricture who on ureteroscopy was found to have an obliterated ureteral lumen. He subsequently underwent right nephrostomy tube placement. Given the severity of the stricture, it was recommended that he brought to the operating room today for an attempted robotic pyeloplasty. DESCRIPTION OF PROCEDURE: The patient was brought to the operating room and general anesthesia was induced. Prophylactic antibiotics were infused. A Vance catheter was placed under sterile conditions. The patient was then placed in left lateral decubitus position in preparation for the above listed procedure. An axillary roll was placed and all pressure points were appropriately padded. The patient was then prepped and draped in the usual sterile fashion. Initial incision was for a 12 mm port along the lateral rectus margin in line with the eleventh rib. A Veress needle was utilized to obtain pneumoperitoneum. Then a 12 mm port was placed through this incision. A camera was placed and there were no apparent injuries from Veress needle placement or initial trocar placement. At this point, we placed remaining ports in the usual fashion with an 8 mm robotic port off the costal margin and another 8 mm robotic port one-third of the way between the anterior superior iliac spine and the umbilicus. A 12 mm multimedia assistant port was placed just distal to the camera port and a 5 mm multimedia assistant port was placed in-between the left hand robotic port and the camera port. All of these ports were placed under direct vision. The robot was then docked and we began the procedure. Of note, the patient had a moderate amount of tissue edema which made dissected the tissue planes difficulty. The right colon was carefully mobilized off of Gerota's fascia. The duodenum was Kocherized. I then dissected on the lower pole of the kidney until the renal pelvis was located. Of note the renal pelvis was moderately to severely dilated. I then dissected the ureter distally. After doing this, I transected the ureter at the level of the renal pelvis. While cutting across the ureter, the tissue was notably very indurated, making it harder than normal to transect it. After transecting the ureter, I tried to locate the lumen of the ureter and could not as it was obliterated in this portion. I traced the ureter down more distally and transected about a centimeter down from the first area and still the ureter was obliterated. I did this a few more times, tracing the ureter down at least another 9-10cm and at no point was I able to identify the lumen as the stricture involved that entire length of ureter and more. Because of the ureter being obliterated for such a long distance, the decision was made to abort the attempted pyeloplasty. Prior to committing to this, I went to the waiting room and discussed the situation with the patient's family. I explained that any other reconstructive options for reestablishing a connection from the right kidney to the bladder (ie, ileal ureter, autotransplant) would be more risky for the patient and would need to be done at another time if considered. It was my recommendation to continue to manage the kidney with percutaneous nephrostomy tubes, and changing it every few months. After discussing this with the patient's family they agreed. At this point I sutured the renal pelvis close with a running 4-0 vicryl suture. We then checked for hemostasis and there were no areas of bleeding. A Kenton Harrison drain was then advanced into the abdomen through the left hand robotic port after undocking it. This drain was placed near the renal pelvis. The remaining ports were then undocked. We then used a Geovanny-Rishi fascial closure device to place 0 Vicryl free ties through the fascia of the 12 mm camera port and the 12 mm multimedia assistant port sites. We then removed all ports under direct vision and there was no apparent bleeding. The previously placed free ties were then tied down. All wounds were then irrigated and the skin of these incisions was closed with subcuticular #4- 0 Monocryl suture. The Kenton-Harrison drain was then secured to the skin with #3- 0 Ethilon suture. Dermabond was applied to all of the incisions and this marked the conclusion of the procedure. The patient's right nephrostomy tube was reconnected to drainage. The patient was taken out of the lateral decubitus position, awakened from anesthesia, and transported to the recovery room in stable condition. ESTIMATED BLOOD LOSS: 150 mL. COMPLICATIONS: None. SPECIMENS: None PLAN: The patient will be admitted to the hospital postoperatively and will likely be discharged home within the next day or two. I will arrange for him to have his right nephrostomy tube changed every few months. ESTELA SANTIAGO MD Jan 14, 2017 20:33
[2017-01-14 20:55] VITALS: BP 144/67
[2017-01-14] MEDS ORDERED: OMEPRAZOLE 20 MG CAP PO SCH (21:00)
[2017-01-14] MEDS ORDERED: LEVEMIR (INSULIN DETEMIR) 1 UNITS/0.01ML SC SCH (21:00)
[2017-01-14 22:00] VITALS: BP_SYST 135; BP_SYST 141; BP_DIAS 67; BP_DIAS 74
[2017-01-14] MEDS: SINEMET 25-100 MG TAB PO SCH (23:01)
[2017-01-15] MEDS: ceFAZolin SOD 1 GM in D5W MINI-BAG PLUS 50 ML IV SCH (00:56)
[2017-01-15] MEDS: NORCO, ANEXSIA 5/325MG TABLET (HYDROcodone/ACETAMINOPHEN) PO PRN (04:12)
[2017-01-15 06:00] VITALS: BP 127/77
[2017-01-15] MEDS ORDERED: ENTER DRUG NAME HERE (PATIENT'S OWN MED) SQ SCH ×2 (07:30→12:00)
[2017-01-15 08:11] LABS: MEAN CORPUSCULAR HEMOGLOBIN 30.1 pg (27.0-33.0); MEAN CORPUSCULAR HGB CONC 34.4 g/dl (32.0-36.5); MEAN CORPUSCULAR VOLUME 87.5 fl (80.0-96.0); RED CELL DISTRIBUTION WIDTH 14.5 % (11.5-14.5); WHITE BLOOD COUNT 8.8 K/mm3 (4.0-10.0)
[2017-01-15 08:34] VITALS: BP 127/77
[2017-01-15] MEDS: SINEMET 25-100 MG TAB PO SCH (08:34)
[2017-01-15] MEDS: ENALAPRIL MALEATE 5 MG TAB PO SCH (08:34)
[2017-01-15 08:37] LABS: CALCIUM LEVEL 8.1 MG/DL (8.8-10.2); CREATININE FOR GFR 1.33 MG/DL (0.70-1.30); GLOMERULAR FILTRATION RATE 56.3 (>42); POTASSIUM SERUM 4.8 MEQ/L (3.5-5.1)
[2017-01-15] MEDS ORDERED: VERAPAMIL 120 MG SR TAB PO SCH (09:00)
[2017-01-15] MEDS: DOCUSATE SODIUM 100 MG CAP PO SCH (09:00)
[2017-01-15] MEDS ORDERED: LEVEMIR (INSULIN DETEMIR) 1 UNITS/0.01ML SC SCH (09:00)
[2017-01-15 10:00] VITALS: BP 142/76
--- NOTE | 2017-01-15 10:52 | IPNPDOC ---
Assessment/Plan Date Seen The patient was seen on 01/15/17. Patient Summary This is a 71 y/o M who is POD1 s/p right robotic renal exploration and aborted pyeloplasty. He is doing well this morning. His K was elevated postop due the nephrostomy tube being clamped during surgery. It has normalized this morning. His UOP is good. Tolerating a regular diet. Pain is well-controlled. Plan/VTE VTE Prophylaxis Ordered?: Yes VTE Exclusion Mechanical Proph: N/A:VTE Prophy Ordered Plan/Urinary Catheter Urinary Catheter: D/C Covarrubias Plan - d/c covarrubias - d/c IVF - d/c EMELIA drain - vicodin prn pain - patient may use home insulin - ambulate - SCDs - plan discharge home w/ right nephrostomy tube in - we will arrange appt to have this changed in radiology - he will f/u w/ me in 1-2 wks Subjective Review oF Systems Chief Complaint The patient is a 71-year-old male admitted with a reason for visit of Ureteral Stricture. Events since Last Encounter No acute events o/n. Patient notes good pain control. He has some discomfort in his left hip, but he notes that it is improving. He denies n/v. He has had 2 bm's since surgery. No f/c/ns. No chest pain or SOB. Objective Physical Examination General Exam: Alert, No Acute Distress ENT EXAM: Atraumatic ABDOMEN EXAM: Other (incisions c/d/i; EMELIA w/ serosang output) Skin Exam: Nl turgor and temperature Psych Exam: Mental status NL, Mood NL Other physical findings right nephrostomy tube draining clear urine Vital Signs/I&O Vital Signs Date Time Temp Pulse Resp B/P (MAP) Pulse Ox O2 Delivery O2 Flow Rate FiO2 01/15/17 10:00 99.1 89 16 142/76 (98) 92 Room Air 01/14/17 19:16 3.0 I&O- Last 24 Hours up to 6 AM 01/15/17 05:59 Intake Total 2795 ml Output Total 1650 ml Balance 1145 ml Laboratory Data Labs 24H Laboratory Tests 2 01/14/17 14:53: Bedside Glucose (Misc Panel) 306H 01/14/17 15:13: Anion Gap 12, Glomerular Filtration Rate 36.4L, Blood Urea Nitrogen 24H, Creatinine 1.94H, Sodium Level 136, Potassium Level 6.8*H, Chloride Level 106, Carbon Dioxide Level 18L, Calcium Level 8.2L 01/14/17 17:24: Bedside Glucose (Misc Panel) 347H 01/14/17 19:48: Anion Gap 15, Glomerular Filtration Rate 38.7L, Blood Urea Nitrogen 26H, Creatinine 1.84H, Sodium Level 137, Potassium Level 6.2*H, Chloride Level 105, Carbon Dioxide Level 17L, Calcium Level 8.5L 01/14/17 20:45: Bedside Glucose (Misc Panel) 354H 01/15/17 07:36: Anion Gap 13, Glomerular Filtration Rate 56.3, Blood Urea Nitrogen 27H, Creatinine 1.33H, Sodium Level 137, Potassium Level 4.8#, Chloride Level 105, Carbon Dioxide Level 19L, Calcium Level 8.1L CBC/BMP Laboratory Tests 01/14/17 15:13 Red Blood Count 4.06 L, Mean Corpuscular Volume 89.9, Mean Corpuscular Hemoglobin 29.1, Mean Corpuscular Hemoglobin Concent 32.4, Red Cell Distribution Width 14.6 H, Calcium Level 8.2 L 01/14/17 19:48 Calcium Level 8.5 L 01/15/17 07:36 Red Blood Count 4.05 L, Mean Corpuscular Volume 87.5, Mean Corpuscular Hemoglobin 30.1, Mean Corpuscular Hemoglobin Concent 34.4, Red Cell Distribution Width 14.5, Calcium Level 8.1 L FSBS Laboratory Tests Test 01/14/17 14:53 01/14/17 17:24 01/14/17 20:45 Range/Units Bedside Glucose (Misc Panel) 306 347 354 83-110 MG/DL ESTELA SANTIAGO MD Jan 15, 2017 10:51
[2017-01-15] MEDS ORDERED: NORCO, ANEXSIA 5/325MG TABLET (HYDROcodone/ACETAMINOPHEN) PO PRN (11:30)
[2017-01-15] MEDS ORDERED: MORPHINE 2 MG/ML 1ML SYRINGE IV PRN (11:30)
[2017-01-15 14:00] VITALS: BP 106/51
--- NOTE | 2017-01-17 12:04 | DSES ---
DATE OF ADMISSION: 01/14/2017 DATE OF DISCHARGE: 01/15/2017 ADMISSION DIAGNOSIS: Right ureteral stricture. DISCHARGE DIAGNOSIS: Right ureteral stricture. ADMITTING PHYSICIAN: Jonatan Darby MD DISCHARGING PHYSICIAN: Jonatan Darby MD PROCEDURES PERFORMED: Right robotic assisted laparoscopic renal exploration and plastic operation on the renal pelvis with aborted pyeloplasty. HISTORY OF PRESENT ILLNESS: This is a 71-year-old male with a known severe proximal right ureteral stricture, who was previously attempted to be treated endoscopically with balloon dilation. Unfortunately, that was unable to be done. He had a completely obliterated proximal ureter. Therefore, I discussed bringing him to the hospital for an attempted pyeloplasty. He was admitted to the hospital after undergoing an attempted pyeloplasty, which was ultimately aborted as the length of the patient's stricture was too long for pyeloplasty. HOSPITALIZATION COURSE: The patient was admitted to the hospital after undergoing the above listed procedure. His postoperative course was notable only for moderate to severe hyperkalemia immediately following surgery. His potassium was as high as 6.8 and this was determined to be the result of keeping his right nephrostomy tube clamped during the procedure. His potassium quickly normalized by postoperative day #1 as a result of allowing the nephrostomy tube to drain and also due to treatment with Lasix and insulin. On postoperative day one, his pain was very well controlled. He was tolerating a regular diet. He had a bowel movement. He was ambulating well. His Vance catheter was removed on postoperative day 1 and he voided without difficulty. His EMELIA drain was also removed on postoperative day 1. Since he was doing well, he was deemed ready for discharge and discharged home on postoperative day 1 in good condition. The plan for this patient will be for him to have his nephrostomy tube changed every few months, as he will need to have a nephrostomy tube in place chronically to allow his kidney to drain. I will schedule him to followup with me in the clinic in approximately 1 week for a postoperative visit. MIGUELANGEL
== END 2017-01-15 16:00 | disposition home or self-care (01) | DRG 690 ==
LOC: M OR 06:02 → M MS5PR 16:35
PROVIDERS: ADMIT Urology; ATTEND Urology
PROC: 8E0W0CZ Robotic Assisted Procedure of Trunk Region, Open Approach (ICD-10-PCS; 2017-01-14)
PROC: 0TJ94ZZ Inspection of Ureter, Percutaneous Endoscopic Approach (ICD-10-PCS; principal; 2017-01-14 07:30)
DX: N13.5 Crossing vessel and stricture of ureter without hydronephrosis (principal); Z53.09 Procedure and treatment not carried out because of other contraindication

== ENCOUNTER → 2017-01-20 | Outpatient (CLI) | payer MEDICARE ==
[2017-01-20 17:31] LABS: MEAN CORPUSCULAR HGB CONC 33.2 g/dl (32.0-36.5); MEAN CORPUSCULAR VOLUME 87.2 fl (80.0-96.0); RED CELL DISTRIBUTION WIDTH 14.8 % (11.5-14.5); WHITE BLOOD COUNT 6.5 K/mm3 (4.0-10.0)
[2017-01-20 18:05] LABS: ANION GAP 7 MEQ/L (8-16); BLOOD UREA NITROGEN 20 MG/DL (7-18); CALCIUM LEVEL 8.3 MG/DL (8.8-10.2); CARBON DIOXIDE LEVEL 26 MEQ/L (21-32); CHLORIDE LEVEL 108 MEQ/L (98-107); CREATININE FOR GFR 0.99 MG/DL (0.70-1.30); GLOMERULAR FILTRATION RATE > 60.0 (>42); GLUCOSE, FASTING 60 MG/DL (83-110); POTASSIUM SERUM 4.5 MEQ/L (3.5-5.1); SODIUM LEVEL 141 MEQ/L (136-145)
== END ==
LOC: M SMT 15:53
PROVIDERS: ATTEND Urology
DX: M25.559 Pain in unspecified hip (principal)
CPT/HCPCS: 36415; 80048; 82550; 85027; G0463

== ENCOUNTER → 2017-02-08 | Outpatient (CLI) | payer MEDICARE ==
[~2017-02-08] MED LIST changes: +CIPROFLOXACIN 500 MG TAB As Ordered ONE; +ISOVUE-300 61% 50ML VIAL (Q9967) As Ordered ONE
--- NOTE | 2017-02-09 13:45 | REP ---
The procedure was performed under the direct supervision of Dr. Vyas CLINICAL HISTORY: Right ureteral stricture/hydronephrosis PROCEDURE: Right nephrostomy catheter exchange Medications: Cipro 500 mg EBL: Less than 1 ml FLUORO TIME: 0.8 minutesCONTRAST: 8 cc Isovue 300DEVICE USED: 10 F Nephrostomy (Resolve) catheter Lot# [id number] The risks and benefits of the procedure were explained to the patient and informed consent was obtained. The patient was brought into the interventional radiology suite. A time out procedure was performed. The patient was placed in the prone position. The existing indwelling catheter and the area surrounding the insertion site were prepped and draped in a sterile fashion. Contrast was injected through the existing right Nephrostomy catheter. images demonstrate good catheter position. The existing catheter was cut and removed over the guide wire. A new 10 F Resolve catheter was advanced over the guide wire. The guidewire was removed and the distal loop of the nephrostomy drainage catheter was formed and locked in the renal pelvis. Contrast was injected, confirming satisfactory drainage catheter positioned. The drainage catheter exit site was covered with sterile dressing. The nephrostomy drainage catheter was flushed and connected to gravity drainage bag. The patient tolerated the procedure well and there were no immediate complications. This procedure was performed using fluoroscopy. Impression: Successful exchange of nephrostomy urinary diversion tube on the right As discussed above. Plan: Routine catheter exchange and approximately 10-12 weeks or earlier if signs of tube dysfunction were to occur. Reviewed by MICHAEL López 02/09/2017 11:00 ASigned by Ronaldo Vyas MD 02/09/2017 01:35 P
== END ==
LOC: M RADPRO 09:50
PROVIDERS: ATTEND Radiology Diagnostic Radiology
DX: N13.1 Hydronephrosis with ureteral stricture, not elsewhere classified (principal); Z87.442 Personal history of urinary calculi; R01.1 Cardiac murmur, unspecified; Z87.891 Personal history of nicotine dependence; Z88.5 Allergy status to narcotic agent; Z88.1 Allergy status to other antibiotic agents; Z88.2 Allergy status to sulfonamides; Z88.8 Allergy status to other drugs, medicaments and biological substances; Z79.01 Long term (current) use of anticoagulants; Z79.4 Long term (current) use of insulin; Z79.899 Other long term (current) drug therapy
CPT/HCPCS: 50435; 75984; C1729; C1769; Q9967

== ENCOUNTER → 2017-05-02 | Outpatient (REF) | payer MEDICARE ==
[~2017-05-02] MED LIST changes: -CIPROFLOXACIN 500 MG TAB As Ordered ONE; -ISOVUE-300 61% 50ML VIAL (Q9967) As Ordered ONE
[2017-05-03 13:13] LABS: ALBUMIN/GLOBULIN RATIO 0.75 (1.00-1.93); ALKALINE PHOSPHATASE 121 U/L (45-117); ALT/SGPT 18 U/L (12-78); ANION GAP 8 MEQ/L (8-16); AST/SGOT 25 U/L (7-37); BILIRUBIN,TOTAL 0.3 MG/DL (0.2-1.0); BLOOD UREA NITROGEN 15 MG/DL (7-18); CARBON DIOXIDE LEVEL 24 MEQ/L (21-32); CHLORIDE LEVEL 108 MEQ/L (98-107); CHOLESTEROL LEVEL 108 MG/DL (<200); CREATININE FOR GFR 1.14 MG/DL (0.70-1.30); GLOMERULAR FILTRATION RATE > 60.0 (>42); GLUCOSE, FASTING 274 MG/DL (83-110); POTASSIUM SERUM 4.5 MEQ/L (3.5-5.1); SODIUM LEVEL 140 MEQ/L (136-145); TRIGLYCERIDES LEVEL 161 MG/DL (<150)
== END ==
LOC: M SFHCCLAY 15:18
PROVIDERS: ATTEND Family Medicine
DX: G62.9 Polyneuropathy, unspecified (principal); E11.42 Type 2 diabetes mellitus with diabetic polyneuropathy; R60.0 Localized edema; M48.061 Spinal stenosis, lumbar region without neurogenic claudication; M47.22 Other spondylosis with radiculopathy, cervical region; I10 Essential (primary) hypertension; R14.0 Abdominal distension (gaseous); E78.2 Mixed hyperlipidemia; Z23 Encounter for immunization; Z79.4 Long term (current) use of insulin; Z79.899 Other long term (current) drug therapy
CPT/HCPCS: 80053; 80061; 82043; 82105; 90662; G0008; G0463

== ENCOUNTER → 2017-05-11 | Outpatient (CLI) | payer MEDICARE ==
--- NOTE | 2017-05-11 10:05 | REP ---
RIGHT UPPER QUADRANT SONOGRAPHY: HISTORY: Abdominal distension. Question ascites or cirrhosis. Comparison is made with CT study from November 05, 2016. SONOGRAPHIC FINDINGS: Scanning through the right upper quadrant of the abdomen demonstrates gravel-like calculi in the gallbladder. No tenderness to scanning. No gallbladder wall thickening seen. Common bile duct is normal measuring 0.5 cm in greatest diameter. Liver texture is coarse with a micronodular liver contour edge and ascites consistent with cirrhosis. Limited views of the pancreas show no abnormality. No focal liver lesion is seen. The spleen is enlarged measuring 19.4 cm in greatest dimension. The right renal dimensions are 13.3 x 5.5 x 5.8 cm. No right-sided hydronephrosis is seen. The patient reports a ureteral stent. This is not definitely seen by ultrasound. IMPRESSION: Mild ascites. Evidence of cirrhosis and splenomegaly. No focal liver lesion. Cholelithiasis again noted. Signed by Ronaldo Vyas MD 05/11/2017 11:19 A
== END ==
LOC: M RAD 08:59
PROVIDERS: ATTEND Family Medicine
DX: R10.9 Unspecified abdominal pain (principal); R22.2 Localized swelling, mass and lump, trunk

== ENCOUNTER → 2017-05-16 | Outpatient (REF) | payer MEDICARE ==
[2017-05-16 18:46] LABS: ANION GAP 7 MEQ/L (8-16); BLOOD UREA NITROGEN 17 MG/DL (7-18); CARBON DIOXIDE LEVEL 28 MEQ/L (21-32); CHLORIDE LEVEL 107 MEQ/L (98-107); CREATININE FOR GFR 1.12 MG/DL (0.70-1.30); GLOMERULAR FILTRATION RATE > 60.0 (>42); GLUCOSE, FASTING 72 MG/DL (83-110); POTASSIUM SERUM 4.1 MEQ/L (3.5-5.1); SODIUM LEVEL 142 MEQ/L (136-145)
== END ==
LOC: M SFHCCLAY 13:59
PROVIDERS: ATTEND Family Medicine
DX: R60.0 Localized edema (principal)
CPT/HCPCS: 36415; 80048; G0463

== ENCOUNTER → 2017-06-23 | Outpatient (CLI) | payer MEDICARE ==
[~2017-06-23] MED LIST changes: -APAP325T4 PO; -CALC600T60 PO; -CALCTAB68 PO; -CARB25TA PO; -CIPR-249 PO; -CIPR500T3 PO; +CIPROFLOXACIN 500 MG TAB As Ordered; -COLA100C5 PO; -COLC1TAB13 PO; -CRANCAP4 PO; -CRES10TA32 PO; -CYCL10TA PO; -ENAL5TAB PO; -FERR1TAB8 PO; -GABAPOW41 PO; -HUMULIN INSULIN SC; -IBUP80TA; -INSULANT SC; -INSUR50VL SC; -LANTUS INSULIN SC; -LORT5TAB PO; -MOM30SS PO; -MULTLIQ7 PO; -NAPR250T4 PO; -NAPR500T3 PO; -NEUR100C PO; -NORC1TAB4 PO; -PLAV1TAB2 PO; -PRIL20CA9 PO; -PRILOSEC; -SENO8.6T5 PO; -SIMV20TA2 PO; -SIMV40TA2 PO; -SIMVPOW2 PO; -TYLE325T5 PO; -VASOTEC PO; -VERA240T14 PO; -VERAPAMIL PO; -VITA10002 PO; -VITA100L PO; -VITA100T2 PO; -VITA1CAP40 PO; -VITAMIN B 1 PO; -VITAMIN D PO
== END ==
LOC: M RADPRO 09:43
DX: Z01.818 Encounter for other preprocedural examination (principal); N13.2 Hydronephrosis with renal and ureteral calculous obstruction; K74.60 Unspecified cirrhosis of liver; I10 Essential (primary) hypertension; E78.00 Pure hypercholesterolemia, unspecified; R01.1 Cardiac murmur, unspecified; K21.9 Gastro-esophageal reflux disease without esophagitis; M19.90 Unspecified osteoarthritis, unspecified site; R94.5 Abnormal results of liver function studies; M10.9 Gout, unspecified; I87.2 Venous insufficiency (chronic) (peripheral); Z87.442 Personal history of urinary calculi; Z85.828 Personal history of other malignant neoplasm of skin; Z79.4 Long term (current) use of insulin; Z79.899 Other long term (current) drug therapy; Z88.5 Allergy status to narcotic agent; Z88.2 Allergy status to sulfonamides; Z88.8 Allergy status to other drugs, medicaments and biological substances; Z86.73 Personal history of transient ischemic attack (TIA), and cerebral infarction without residual deficits; E78.2 Mixed hyperlipidemia; R60.0 Localized edema
CPT/HCPCS: 50435

== ENCOUNTER → 2017-06-28 | Outpatient (CLI) | payer MEDICARE ==
[2017-06-28 09:26] LABS: TYPE AND SCREEN 1
[2017-06-28 12:02] LABS: APPEARANCE, BODY FLUID CLEAR (CLEAR); ASCITES FL COLOR PALE YELLOW (COLORLESS); BF MONONUCLEAR CELL % 94.3 % (0-0); BF POLYMORPHONUCLEAR CELL % 5.7 % (0-0); RBC BODY FLUID < 2 10^3/uL (<2); SOURCE, BODY FLUID ASCITES; WBC BODY FLUID 283 /uL (0-10)
[2017-06-28 12:18] LABS: SOURCE, BODY FLUID TOT PROTEIN ASCITES; TOTAL PROTEIN, BODY FLUID 3.1 G/DL (NOT ESTABLISHED)
[2017-06-28 12:24] LABS: BF DIFF IF INDICATED? YES (NO)
[2017-06-29 08:55] LABS: SOURCE, BODY FLUID ALBUMIN ASCITES
== END ==
LOC: M RADPRO 08:55
DX: K74.60 Unspecified cirrhosis of liver (principal); I10 Essential (primary) hypertension; E78.00 Pure hypercholesterolemia, unspecified; M19.90 Unspecified osteoarthritis, unspecified site; K21.9 Gastro-esophageal reflux disease without esophagitis; R01.1 Cardiac murmur, unspecified; Z79.899 Other long term (current) drug therapy; Z88.1 Allergy status to other antibiotic agents; Z88.2 Allergy status to sulfonamides; Z88.5 Allergy status to narcotic agent; Z86.73 Personal history of transient ischemic attack (TIA), and cerebral infarction without residual deficits; Z87.39 Personal history of other diseases of the musculoskeletal system and connective tissue; Z87.442 Personal history of urinary calculi; Z85.828 Personal history of other malignant neoplasm of skin; Z85.820 Personal history of malignant melanoma of skin
CPT/HCPCS: 49083

== ENCOUNTER → 2017-07-14 | Outpatient (CLI) | payer MEDICARE ==
[2017-07-14 07:38] LABS: TYPE AND SCREEN 1
== END ==
LOC: M RADPRO 07:14
DX: K76.6 Portal hypertension (principal); K74.60 Unspecified cirrhosis of liver; R18.8 Other ascites; D50.9 Iron deficiency anemia, unspecified; E78.5 Hyperlipidemia, unspecified; E11.9 Type 2 diabetes mellitus without complications; I10 Essential (primary) hypertension; K21.9 Gastro-esophageal reflux disease without esophagitis; G47.33 Obstructive sleep apnea (adult) (pediatric); G62.9 Polyneuropathy, unspecified; L57.0 Actinic keratosis; M48.07 Spinal stenosis, lumbosacral region; D61.818 Other pancytopenia; R01.1 Cardiac murmur, unspecified; Z79.4 Long term (current) use of insulin; Z79.899 Other long term (current) drug therapy; Z88.5 Allergy status to narcotic agent; Z88.8 Allergy status to other drugs, medicaments and biological substances; Z87.442 Personal history of urinary calculi; Z86.73 Personal history of transient ischemic attack (TIA), and cerebral infarction without residual deficits
CPT/HCPCS: 49083

== ENCOUNTER → 2017-08-01 | Outpatient (CLI) | payer MEDICARE ==
[2017-08-01 15:57] LABS: BASO % 0.3 % (0.0-1.0); EOS # 0.1 10^3/uL (0.0-0.50); EOS % 2.1 % (0.0-3.0); HEMATOCRIT 29.4 % (42.0-52.0); IMMATURE GRANULOCYTE % 0.5 % (0-3.0); LYMPH # 0.9 10^3/uL (1.5-4.5); MEAN CORPUSCULAR HEMOGLOBIN 23.3 pg (27.0-33.0); MEAN CORPUSCULAR HGB CONC 30.6 g/dl (32.0-36.5); MEAN CORPUSCULAR VOLUME 76.2 fl (80.0-96.0); MONO # 0.7 10^3/uL (0.0-0.8); MONO % 11.2 % (0.0-5.0); NEUTROPHILS # 4.4 10^3/uL (1.8-7.7); NEUTROPHILS % 71.9 % (36.0-66.0); PLATELET COUNT, AUTOMATED 152 10^3/uL (150-450); RED BLOOD COUNT 3.86 10^6/uL (4.30-6.10); RED CELL DISTRIBUTION WIDTH 18.6 % (11.5-14.5); WHITE BLOOD COUNT 6.2 10^3/uL (4.0-10.0)
[2017-08-01 16:13] LABS: ANION GAP 9 MEQ/L (8-16); BLOOD UREA NITROGEN 58 MG/DL (7-18); CALCIUM LEVEL 8.6 MG/DL (8.8-10.2); CARBON DIOXIDE LEVEL 22 MEQ/L (21-32); CHLORIDE LEVEL 108 MEQ/L (98-107); CREATININE FOR GFR 2.77 MG/DL (0.70-1.30); GLOMERULAR FILTRATION RATE 24.1 (>42); GLUCOSE, FASTING 157 MG/DL (70-100); MAGNESIUM LEVEL 2.6 MG/DL (1.8-2.4); PHOSPHORUS LEVEL 4.5 MG/DL (2.5-4.9); SODIUM LEVEL 139 MEQ/L (136-145)
[2017-08-01 16:18] LABS: POTASSIUM SERUM 6.1 MEQ/L (3.5-5.1)
== END ==
LOC: M LAB 15:24
DX: E87.5 Hyperkalemia (principal); R94.5 Abnormal results of liver function studies; R18.8 Other ascites

== ENCOUNTER → 2017-08-01 | Outpatient (CLI) | payer MEDICARE ==
[2017-08-01 12:29] LABS: BASO % 0.2 % (0.0-1.0); EOS # 0.1 10^3/uL (0.0-0.50); EOS % 1.5 % (0.0-3.0); HEMATOCRIT 29.2 % (42.0-52.0); IMMATURE GRANULOCYTE % 0.3 % (0-3.0); LYMPH # 0.8 10^3/uL (1.5-4.5); LYMPH % 12.5 % (24.0-44.0); MEAN CORPUSCULAR HEMOGLOBIN 23.2 pg (27.0-33.0); MEAN CORPUSCULAR HGB CONC 30.8 g/dl (32.0-36.5); MEAN CORPUSCULAR VOLUME 75.3 fl (80.0-96.0); MONO # 0.6 10^3/uL (0.0-0.8); MONO % 8.9 % (0.0-5.0); NEUTROPHILS # 4.7 10^3/uL (1.8-7.7); NEUTROPHILS % 76.6 % (36.0-66.0); PLATELET COUNT, AUTOMATED 162 10^3/uL (150-450); RED BLOOD COUNT 3.88 10^6/uL (4.30-6.10); RED CELL DISTRIBUTION WIDTH 18.7 % (11.5-14.5); WHITE BLOOD COUNT 6.2 10^3/uL (4.0-10.0)
[2017-08-01 12:53] LABS: ANION GAP 9 MEQ/L (8-16); BLOOD UREA NITROGEN 56 MG/DL (7-18); CALCIUM LEVEL 8.7 MG/DL (8.8-10.2); CARBON DIOXIDE LEVEL 22 MEQ/L (21-32); CHLORIDE LEVEL 105 MEQ/L (98-107); CREATININE FOR GFR 2.54 MG/DL (0.70-1.30); GLOMERULAR FILTRATION RATE 26.6 (>42); GLUCOSE, FASTING 242 MG/DL (70-100); NT-PRO BNP 86 PG/ML (<125); SODIUM LEVEL 136 MEQ/L (136-145)
[2017-08-01 13:02] LABS: POTASSIUM SERUM 6.4 MEQ/L (3.5-5.1)
[2017-08-02 08:07] LABS: HEPATITIS A IgG TOTAL Positive (Negative)
== END ==
LOC: M LAB 11:24
DX: K74.60 Unspecified cirrhosis of liver (principal); E87.5 Hyperkalemia; R94.5 Abnormal results of liver function studies; R18.8 Other ascites
CPT/HCPCS: 83735

== ENCOUNTER 2017-08-02 13:50 | Inpatient (IN) | payer MEDICARE ==
[2017-08-02] MEDS: NS 1,000 ML IV (15:10)
[2017-08-02 15:12] LABS: BASO % 0.4 % (0.0-1.0); EOS # 0.1 10^3/uL (0.0-0.50); EOS % 1.9 % (0.0-3.0); HEMATOCRIT 27.8 % (42.0-52.0); HEMOGLOBIN 8.8 g/dl (14.0-18.0); IMMATURE GRANULOCYTE % 0.5 % (0-3.0); LYMPH # 0.8 10^3/uL (1.5-4.5); MEAN CORPUSCULAR HEMOGLOBIN 23.9 pg (27.0-33.0); MEAN CORPUSCULAR HGB CONC 31.7 g/dl (32.0-36.5); MEAN CORPUSCULAR VOLUME 75.5 fl (80.0-96.0); MONO # 0.6 10^3/uL (0.0-0.8); MONO % 10.5 % (0.0-5.0); NEUTROPHILS # 4.1 10^3/uL (1.8-7.7); NEUTROPHILS % 72.7 % (36.0-66.0); PLATELET COUNT, AUTOMATED 139 10^3/uL (150-450); RED BLOOD COUNT 3.68 10^6/uL (4.30-6.10); RED CELL DISTRIBUTION WIDTH 18.7 % (11.5-14.5); WHITE BLOOD COUNT 5.7 10^3/uL (4.0-10.0)
[2017-08-02 15:25] LABS: INR 1.15; PROTHROMBIN TIME 14.9 SECONDS (12.4-14.5)
[2017-08-02 15:46] LABS: ALBUMIN 3.4 GM/DL (3.2-5.2); ALBUMIN/GLOBULIN RATIO 0.83 (1.00-1.93); ALKALINE PHOSPHATASE 117 U/L (45-117); ALT/SGPT 15 U/L (12-78); ANION GAP 9 MEQ/L (8-16); AST/SGOT 14 U/L (7-37); BILIRUBIN,DIRECT 0.1 MG/DL (0.0-0.2); BILIRUBIN,TOTAL 0.3 MG/DL (0.2-1.0); BLOOD UREA NITROGEN 61 MG/DL (7-18); CALCIUM LEVEL 8.4 MG/DL (8.8-10.2); CARBON DIOXIDE LEVEL 22 MEQ/L (21-32); CHLORIDE LEVEL 105 MEQ/L (98-107); CK-MB VALUE MASS 3.5 NG/ML (0.0-3.6); CPK CREATINE PHOSPHOKINASE 68 U/L (39-308); CREATININE FOR GFR 2.95 MG/DL (0.70-1.30); GLOMERULAR FILTRATION RATE 22.4 (>42); GLUCOSE, FASTING 238 MG/DL (70-100); MB/CK RELATIVE INDEX 5.14 (< OR =4); SODIUM LEVEL 136 MEQ/L (136-145); TOTAL PROTEIN 7.5 GM/DL (6.4-8.2); TROPONIN I < 0.02 NG/ML (< 0.10)
[2017-08-02 15:48] LABS: POTASSIUM SERUM 6.4 MEQ/L (3.5-5.1)
[2017-08-02] MEDS: SOD POLYSTYRENE SULFONATE SUSP 15 GM/60 ML UD PO (17:14)
[2017-08-02] MEDS: CALCIUM GLUCONATE 1,000 MG in D5W MINI-BAG PLUS 100 ML IV (17:15)
[2017-08-02] MEDS: HumuLIN R (REGULAR) INSULIN (NovoLIN R) **100U/ML** PER UNIT IV (17:15)
[2017-08-02] MEDS: D5W 1,000 ML IV (17:15)
[2017-08-02 17:20] LABS: KETONE, URINE AUTO RFX NEGATIVE (NEGATIVE); LEUKOCYTE ESTERASE UR AUTO RFX 3+ (NEGATIVE); NITRITE, URINE AUTO RFX NEGATIVE (NEGATIVE); RBC, URINE AUTO RFX TNTC /HPF (0-3); SQUAM EPITHELIAL CELL UR AURFX 0 /HPF (0-6); WBC, URINE AUTO RFX TNTC /HPF (0-3)
[2017-08-02 17:38] LABS: CREATININE,RANDOM URINE 70.6 MG/DL
[2017-08-02 17:38] LABS: POTASSIUM RANDOM URINE 22.7 MEQ/L; SODIUM,RANDOM URINE 87 MEQ/L
[2017-08-02] MEDS ORDERED: GLUCOSE 4 GM CHEW TABLET PO (17:45)
[2017-08-02] MEDS ORDERED: GLUCAGON FOR INJ 1 MG VIAL (J1610) SC (17:45)
[2017-08-02] MEDS ORDERED: DEXTROSE 50% 50 ML SYRINGE IV (17:45)
[2017-08-02] MEDS: ALBUTEROL SULFATE 2.5 MG/0.5 ML INH NEB SOLN NEB (18:00)
[2017-08-02] MEDS ORDERED: LEVEMIR (INSULIN DETEMIR) 1 UNITS/0.01ML SC (21:00)
[2017-08-02] MEDS: HumaLOG INSULIN (NovoLOG) PER UNIT SC (21:00)
[2017-08-02] MEDS ORDERED: ENTER DRUG NAME HERE (PATIENT'S OWN MED) SC (21:15)
[2017-08-02 21:58] LABS: BEDSIDE GLUCOSE 240 MG/DL (83-110)
[2017-08-02] MEDS: OMEPRAZOLE 20 MG CAP PO (22:17)
[2017-08-02] MEDS: THIAMINE 100 MG TAB PO (22:17)
[2017-08-02 22:24] LABS: POTASSIUM SERUM 6.4 MEQ/L (3.5-5.1)
[2017-08-03] MEDS: SOD POLYSTYRENE SULFONATE SUSP 15 GM/60 ML UD PO ×2 (00:17→08:48)
[2017-08-03] MEDS: LACTULOSE 20 GM/30 ML SYRUP UD PO (00:17)
[2017-08-03] MEDS: CALCIUM GLUCONATE 1,000 MG in D5W MINI-BAG PLUS 100 ML IV (00:17)
[2017-08-03] MEDS: ONDANSETRON 4MG/2ML VIAL (J2405) IV ×2 (00:42→08:48)
[2017-08-03] MEDS: LANTUS SQ ×3 (00:42→19:55)
[2017-08-03] MEDS: NS 1,000 ML IV ×2 (03:10→16:34)
[2017-08-03 07:19] LABS: HEMATOCRIT 27.2 % (42.0-52.0); HEMOGLOBIN 8.3 g/dl (14.0-18.0); MEAN CORPUSCULAR HEMOGLOBIN 22.8 pg (27.0-33.0); MEAN CORPUSCULAR HGB CONC 30.5 g/dl (32.0-36.5); MEAN CORPUSCULAR VOLUME 74.7 fl (80.0-96.0); PLATELET COUNT, AUTOMATED 126 10^3/uL (150-450); RED BLOOD COUNT 3.64 10^6/uL (4.30-6.10); WHITE BLOOD COUNT 4.2 10^3/uL (4.0-10.0)
[2017-08-03] MEDS ORDERED: ENTER DRUG NAME HERE (PATIENT'S OWN MED) SQ (07:30)
[2017-08-03] MEDS ORDERED: HumaLOG INSULIN (NovoLOG) PER UNIT SC (07:30)
[2017-08-03 07:44] LABS: ALBUMIN 3.3 GM/DL (3.2-5.2); ALBUMIN/GLOBULIN RATIO 0.79 (1.00-1.93); ALKALINE PHOSPHATASE 120 U/L (45-117); ALT/SGPT 18 U/L (12-78); ANION GAP 9 MEQ/L (8-16); AST/SGOT 17 U/L (7-37); BILIRUBIN,TOTAL 0.4 MG/DL (0.2-1.0); BLOOD UREA NITROGEN 54 MG/DL (7-18); CALCIUM LEVEL 8.4 MG/DL (8.8-10.2); CARBON DIOXIDE LEVEL 20 MEQ/L (21-32); CHLORIDE LEVEL 109 MEQ/L (98-107); CREATININE FOR GFR 2.35 MG/DL (0.70-1.30); GLOMERULAR FILTRATION RATE 29.1 (>42); GLUCOSE, FASTING 207 MG/DL (70-100); MAGNESIUM LEVEL 2.3 MG/DL (1.8-2.4); SODIUM LEVEL 138 MEQ/L (136-145); TOTAL PROTEIN 7.5 GM/DL (6.4-8.2)
[2017-08-03 07:52] LABS: BEDSIDE GLUCOSE 218 MG/DL (83-110)
[2017-08-03] MEDS: HUMULIN R U SQ ×3 (08:43→19:59)
[2017-08-03 11:07] LABS: POTASSIUM SERUM 5.7 MEQ/L (3.5-5.1)
[2017-08-03] MEDS ORDERED: HUMULIN R U-500 KWIKPEN 500UNITS/ML 3ML SYRINGE (J1815 PER 5UNITS) SQ ×2 (12:00→17:30)
[2017-08-03 12:12] LABS: BEDSIDE GLUCOSE 183 MG/DL (83-110)
[2017-08-03] MEDS: FUROSEMIDE 40 MG/4 ML VIAL (J1940) IV (16:41)
[2017-08-03 18:03] LABS: BEDSIDE GLUCOSE 78 MG/DL (83-110)
[2017-08-03] MEDS: OMEPRAZOLE 20 MG CAP PO (19:58)
[2017-08-03] MEDS: THIAMINE 100 MG TAB PO (19:58)
[2017-08-04] MEDS: NS 1,000 ML IV ×2 (04:02→09:33)
[2017-08-04 05:56] LABS: HEMATOCRIT 27.5 % (42.0-52.0); HEMOGLOBIN 8.5 g/dl (14.0-18.0); MEAN CORPUSCULAR HEMOGLOBIN 23.4 pg (27.0-33.0); MEAN CORPUSCULAR HGB CONC 30.9 g/dl (32.0-36.5); MEAN CORPUSCULAR VOLUME 75.5 fl (80.0-96.0); PLATELET COUNT, AUTOMATED 129 10^3/uL (150-450); RED BLOOD COUNT 3.64 10^6/uL (4.30-6.10); RED CELL DISTRIBUTION WIDTH 18.9 % (11.5-14.5); WHITE BLOOD COUNT 4.1 10^3/uL (4.0-10.0)
[2017-08-04 06:13] LABS: ALBUMIN 3.4 GM/DL (3.2-5.2); ALBUMIN/GLOBULIN RATIO 0.76 (1.00-1.93); ALKALINE PHOSPHATASE 123 U/L (45-117); ALT/SGPT 19 U/L (12-78); ANION GAP 9 MEQ/L (8-16); AST/SGOT 18 U/L (7-37); BILIRUBIN,TOTAL 0.4 MG/DL (0.2-1.0); BLOOD UREA NITROGEN 39 MG/DL (7-18); CALCIUM LEVEL 8.5 MG/DL (8.8-10.2); CARBON DIOXIDE LEVEL 22 MEQ/L (21-32); CHLORIDE LEVEL 109 MEQ/L (98-107); CREATININE FOR GFR 1.76 MG/DL (0.70-1.30); GLOMERULAR FILTRATION RATE 40.6 (>42); GLUCOSE, FASTING 85 MG/DL (70-100); IRON (FE) 19 UG/DL (65-175); PERCENT SATURATION 5.1 % (19.7-50.0); SODIUM LEVEL 140 MEQ/L (136-145); TOTAL IRON BINDING CAPACITY 369 UG/DL (250-450); TOTAL PROTEIN 7.9 GM/DL (6.4-8.2)
[2017-08-04] MEDS: HUMULIN R U SQ ×3 (07:30→18:26)
[2017-08-04] MEDS ORDERED: HUMULIN R U-500 KWIKPEN 500UNITS/ML 3ML SYRINGE (J1815 PER 5UNITS) SQ (07:30)
[2017-08-04] MEDS: LANTUS SQ ×2 (09:33→19:54)
[2017-08-04] MEDS: BUMETANIDE 1 MG TAB PO (11:13)
[2017-08-04 11:26] LABS: BEDSIDE GLUCOSE 309 MG/DL (83-110)
[2017-08-04] MEDS: ONDANSETRON 4MG/2ML VIAL (J2405) IV (13:27)
[2017-08-04 16:37] LABS: BEDSIDE GLUCOSE 246 MG/DL (83-110)
[2017-08-04] MEDS: PROMETHAZINE 25 MG TAB PO (16:45)
[2017-08-04] MEDS: FERROUS GLUCONATE 324 MG TAB PO (20:34)
[2017-08-04] MEDS: THIAMINE 100 MG TAB PO (20:34)
[2017-08-04] MEDS: OMEPRAZOLE 20 MG CAP PO (20:38)
[2017-08-04 21:37] LABS: BEDSIDE GLUCOSE 279 MG/DL (83-110)
[2017-08-05] MEDS: ONDANSETRON 4MG/2ML VIAL (J2405) IV (00:15)
[2017-08-05] MEDS: PROMETHAZINE 25 MG TAB PO (03:00)
[2017-08-05 06:28] LABS: HEMATOCRIT 27.2 % (42.0-52.0); HEMOGLOBIN 8.5 g/dl (14.0-18.0); MEAN CORPUSCULAR HEMOGLOBIN 23.4 pg (27.0-33.0); MEAN CORPUSCULAR HGB CONC 31.3 g/dl (32.0-36.5); MEAN CORPUSCULAR VOLUME 74.7 fl (80.0-96.0); PLATELET COUNT, AUTOMATED 111 10^3/uL (150-450); RED BLOOD COUNT 3.64 10^6/uL (4.30-6.10); RED CELL DISTRIBUTION WIDTH 18.7 % (11.5-14.5); WHITE BLOOD COUNT 3.3 10^3/uL (4.0-10.0)
[2017-08-05 06:52] LABS: ALBUMIN 3.5 GM/DL (3.2-5.2); ALBUMIN/GLOBULIN RATIO 0.78 (1.00-1.93); ALKALINE PHOSPHATASE 129 U/L (45-117); ALT/SGPT 17 U/L (12-78); ANION GAP 9 MEQ/L (8-16); AST/SGOT 21 U/L (7-37); BILIRUBIN,TOTAL 0.4 MG/DL (0.2-1.0); BLOOD UREA NITROGEN 32 MG/DL (7-18); CALCIUM LEVEL 8.4 MG/DL (8.8-10.2); CARBON DIOXIDE LEVEL 20 MEQ/L (21-32); CHLORIDE LEVEL 111 MEQ/L (98-107); CREATININE FOR GFR 1.62 MG/DL (0.70-1.30); GLOMERULAR FILTRATION RATE 44.7 (>42); GLUCOSE, FASTING 180 MG/DL (70-100); MAGNESIUM LEVEL 1.9 MG/DL (1.8-2.4); POTASSIUM SERUM 4.7 MEQ/L (3.5-5.1); SODIUM LEVEL 140 MEQ/L (136-145)
[2017-08-05 08:09] LABS: AMMONIA 52 uMOL/L (<32)
[2017-08-05] MEDS: BUMETANIDE 1 MG TAB PO (08:27)
[2017-08-05] MEDS: FERROUS GLUCONATE 324 MG TAB PO (08:27)
[2017-08-05] MEDS: LANTUS SQ (08:58)
[2017-08-05] MEDS: HUMULIN R U SQ (08:59)
[2017-08-05 11:56] LABS: BEDSIDE GLUCOSE 174 MG/DL (83-110)
== END 2017-08-05 15:05 | disposition home health service (06) | DRG 683 ==
LOC: M PCU 08-03 13:46 → M ED 13:50 → M ED INP 17:37
DX: N17.9 Acute kidney failure, unspecified (principal); R18.8 Other ascites; K74.60 Unspecified cirrhosis of liver; E87.5 Hyperkalemia; I10 Essential (primary) hypertension; E11.40 Type 2 diabetes mellitus with diabetic neuropathy, unspecified; E78.5 Hyperlipidemia, unspecified; K21.9 Gastro-esophageal reflux disease without esophagitis; Z93.6 Other artificial openings of urinary tract status; Z79.4 Long term (current) use of insulin; Z79.899 Other long term (current) drug therapy; Z88.5 Allergy status to narcotic agent; Z88.8 Allergy status to other drugs, medicaments and biological substances; Z88.1 Allergy status to other antibiotic agents; Z87.891 Personal history of nicotine dependence; Z85.828 Personal history of other malignant neoplasm of skin; Z86.73 Personal history of transient ischemic attack (TIA), and cerebral infarction without residual deficits

== ENCOUNTER → 2017-08-08 | Outpatient (CLI) | payer MEDICARE ==
[2017-08-08 12:49] LABS: TYPE AND SCREEN 1
== END ==
LOC: M RADPRO 11:04
DX: K74.60 Unspecified cirrhosis of liver (principal); R18.8 Other ascites; I10 Essential (primary) hypertension; E78.00 Pure hypercholesterolemia, unspecified; K21.9 Gastro-esophageal reflux disease without esophagitis; E11.9 Type 2 diabetes mellitus without complications; M19.90 Unspecified osteoarthritis, unspecified site; Z79.4 Long term (current) use of insulin; Z79.891 Long term (current) use of opiate analgesic; Z79.899 Other long term (current) drug therapy; Z86.73 Personal history of transient ischemic attack (TIA), and cerebral infarction without residual deficits; Z87.39 Personal history of other diseases of the musculoskeletal system and connective tissue; Z88.8 Allergy status to other drugs, medicaments and biological substances
CPT/HCPCS: 49083

== ENCOUNTER 2017-08-09 07:16 | Day surgery (SDC) | payer MEDICARE ==
[~2017-08-09 07:16] MED LIST changes: -CIPROFLOXACIN 500 MG TAB As Ordered; +PROPOFOL 200 MG/20 ML VIAL As Ordered
[2017-08-09] MEDS ORDERED: ePHEDrine INJ 50 MG/ML VIAL As Ordered (07:36)
[2017-08-09 07:43] LABS: HEMATOCRIT 27.6 % (42.0-52.0); HEMOGLOBIN 8.6 g/dl (14.0-18.0); MEAN CORPUSCULAR HEMOGLOBIN 23.9 pg (27.0-33.0); MEAN CORPUSCULAR HGB CONC 31.2 g/dl (32.0-36.5); MEAN CORPUSCULAR VOLUME 76.7 fl (80.0-96.0); PLATELET COUNT, AUTOMATED 137 10^3/uL (150-450); RED CELL DISTRIBUTION WIDTH 19.8 % (11.5-14.5); WHITE BLOOD COUNT 4.6 10^3/uL (4.0-10.0)
[2017-08-09] MEDS: NS 1,000 ML IV (07:45)
[2017-08-09] MEDS ORDERED: PHENYLephrine HCL 500 MCG/5 ML (100MCG/ML) SYRINGE (J2370) As Ordered (07:58)
[2017-08-09 08:02] LABS: INR 1.19; PROTHROMBIN TIME 15.3 SECONDS (12.4-14.5)
[2017-08-09 08:03] LABS: PARTIAL THROMBOPLASTIN TIME 36.1 SECONDS (26.8-37.9)
== END 2017-08-09 08:48 | disposition home or self-care (01) ==
LOC: M SDC 07:16
DX: D50.9 Iron deficiency anemia, unspecified (principal); K74.60 Unspecified cirrhosis of liver; K25.9 Gastric ulcer, unspecified as acute or chronic, without hemorrhage or perforation; I85.10 Secondary esophageal varices without bleeding; I10 Essential (primary) hypertension; E78.5 Hyperlipidemia, unspecified; K21.9 Gastro-esophageal reflux disease without esophagitis; L57.0 Actinic keratosis; G62.9 Polyneuropathy, unspecified; E11.9 Type 2 diabetes mellitus without complications; D03.9 Melanoma in situ, unspecified; G47.30 Sleep apnea, unspecified; M12.9 Arthropathy, unspecified; G20 Parkinson's disease; M48.00 Spinal stenosis, site unspecified; L30.9 Dermatitis, unspecified; M10.9 Gout, unspecified; R01.1 Cardiac murmur, unspecified; D61.818 Other pancytopenia; N35.9 Urethral stricture, unspecified; M51.9 Unspecified thoracic, thoracolumbar and lumbosacral intervertebral disc disorder; Z88.1 Allergy status to other antibiotic agents; Z88.2 Allergy status to sulfonamides; Z88.5 Allergy status to narcotic agent; Z88.8 Allergy status to other drugs, medicaments and biological substances; Z86.73 Personal history of transient ischemic attack (TIA), and cerebral infarction without residual deficits; Z87.442 Personal history of urinary calculi
CPT/HCPCS: 43239

== ENCOUNTER → 2017-08-15 | Outpatient (REF) | payer MEDICARE ==
[2017-08-15 16:47] LABS: HEMATOCRIT 31.1 % (42.0-52.0); HEMOGLOBIN 9.6 g/dl (14.0-18.0); MEAN CORPUSCULAR HGB CONC 30.9 g/dl (32.0-36.5); MEAN CORPUSCULAR VOLUME 77.8 fl (80.0-96.0); PLATELET COUNT, AUTOMATED 106 10^3/uL (150-450); RED CELL DISTRIBUTION WIDTH 20.3 % (11.5-14.5)
[2017-08-15 17:11] LABS: AMMONIA 99 uMOL/L (<32)
[2017-08-15 18:51] LABS: ALBUMIN 3.5 GM/DL (3.2-5.2); ALBUMIN/GLOBULIN RATIO 0.88 (1.00-1.93); ALKALINE PHOSPHATASE 129 U/L (45-117); ALT/SGPT 8 U/L (12-78); ANION GAP 10 MEQ/L (8-16); AST/SGOT 16 U/L (7-37); BILIRUBIN,TOTAL 0.4 MG/DL (0.2-1.0); BLOOD UREA NITROGEN 33 MG/DL (7-18); CALCIUM LEVEL 8.6 MG/DL (8.8-10.2); CARBON DIOXIDE LEVEL 23 MEQ/L (21-32); CHLORIDE LEVEL 108 MEQ/L (98-107); CREATININE FOR GFR 1.56 MG/DL (0.70-1.30); GLOMERULAR FILTRATION RATE 46.7 (>42); GLUCOSE, FASTING 210 MG/DL (70-100); POTASSIUM SERUM 4.6 MEQ/L (3.5-5.1); SODIUM LEVEL 141 MEQ/L (136-145); TOTAL PROTEIN 7.5 GM/DL (6.4-8.2)
== END ==
LOC: M SFHCCLAY 11:56
DX: K74.69 Other cirrhosis of liver (principal)
CPT/HCPCS: 82140

== ENCOUNTER → 2017-08-24 | Outpatient (REF) | payer MEDICARE | LOC: M SFHCCLAY 15:34 | DX: K74.69 Other cirrhosis of liver (principal) ==

== ENCOUNTER → 2017-08-25 | Outpatient (CLI) | payer MEDICARE ==
[2017-08-25 12:55] LABS: HEMATOCRIT 29.6 % (42.0-52.0); HEMOGLOBIN 9.4 g/dl (14.0-18.0); MEAN CORPUSCULAR HEMOGLOBIN 24.9 pg (27.0-33.0); MEAN CORPUSCULAR HGB CONC 31.8 g/dl (32.0-36.5); MEAN CORPUSCULAR VOLUME 78.5 fl (80.0-96.0); PLATELET COUNT, AUTOMATED 113 10^3/uL (150-450); RED BLOOD COUNT 3.77 10^6/uL (4.30-6.10); RED CELL DISTRIBUTION WIDTH 20.3 % (11.5-14.5)
[2017-08-25 13:21] LABS: AMMONIA 96 uMOL/L (<32)
[2017-08-25 13:23] LABS: ALBUMIN 3.1 GM/DL (3.2-5.2); ALBUMIN/GLOBULIN RATIO 0.79 (1.00-1.93); ALKALINE PHOSPHATASE 151 U/L (45-117); ALT/SGPT 26 U/L (12-78); ANION GAP 10 MEQ/L (8-16); AST/SGOT 27 U/L (7-37); BILIRUBIN,TOTAL 0.4 MG/DL (0.2-1.0); BLOOD UREA NITROGEN 31 MG/DL (7-18); CALCIUM LEVEL 8.3 MG/DL (8.8-10.2); CARBON DIOXIDE LEVEL 23 MEQ/L (21-32); CHLORIDE LEVEL 107 MEQ/L (98-107); CREATININE FOR GFR 1.48 MG/DL (0.70-1.30); GLOMERULAR FILTRATION RATE 49.6 (>42); GLUCOSE, FASTING 241 MG/DL (70-100); POTASSIUM SERUM 4.4 MEQ/L (3.5-5.1); SODIUM LEVEL 140 MEQ/L (136-145)
== END ==
LOC: M LAB 12:31
DX: K74.69 Other cirrhosis of liver (principal)
CPT/HCPCS: 82140

== ENCOUNTER → 2017-09-07 | Outpatient (CLI) | payer MEDICARE ==
[2017-09-07 14:15] LABS: TYPE AND SCREEN 1
[2017-09-07 15:30] LABS: TYPE AND SCREEN 1
[2017-09-07 16:25] LABS: BF MONONUCLEAR CELL % 94.4 % (0-0); BF POLYMORPHONUCLEAR CELL % 5.6 % (0-0); RBC BODY FLUID < 2 10^3/uL (<2); WBC BODY FLUID 162 /uL (0-10)
[2017-09-07 16:26] LABS: APPEARANCE, BODY FLUID CLEAR (CLEAR); ASCITES FL COLOR PALE YELLOW (COLORLESS); BF DIFF IF INDICATED? YES (NO); SOURCE, BODY FLUID ASCITES
[2017-09-07 16:41] LABS: LDH, BODY FLUID 50 U/L (NOT ESTABLISHED); SOURCE, BODY FLUID ALBUMIN ASCITES; SOURCE, BODY FLUID LDH ASCITES; SOURCE, BODY FLUID TOT PROTEIN ASCITES; TOTAL PROTEIN, BODY FLUID 2.5 G/DL (NOT ESTABLISHED)
== END ==
LOC: M RADPRO 13:40
DX: K74.60 Unspecified cirrhosis of liver (principal); R18.8 Other ascites; N13.1 Hydronephrosis with ureteral stricture, not elsewhere classified; Z79.899 Other long term (current) drug therapy; Z79.4 Long term (current) use of insulin; Z88.5 Allergy status to narcotic agent; Z88.8 Allergy status to other drugs, medicaments and biological substances; Z88.2 Allergy status to sulfonamides
CPT/HCPCS: 49083

== ENCOUNTER → 2017-09-07 | Outpatient (CLI) | payer MEDICARE ==
[~2017-09-07] MED LIST changes: +CIPROFLOXACIN 500 MG TAB As Ordered; +ISOVUE-300 61% 50ML VIAL (Q9967) As Ordered; +LIDOCAINE 1% MDV 20ML VIAL As Ordered; -PROPOFOL 200 MG/20 ML VIAL As Ordered
== END ==
LOC: M RADPRO 13:44
DX: N13.1 Hydronephrosis with ureteral stricture, not elsewhere classified (principal); Z79.899 Other long term (current) drug therapy; Z79.4 Long term (current) use of insulin; Z88.5 Allergy status to narcotic agent; Z88.8 Allergy status to other drugs, medicaments and biological substances; Z88.2 Allergy status to sulfonamides

== ENCOUNTER → 2017-09-09 | Outpatient (REF) | payer MEDICARE ==
[2017-09-09 16:32] LABS: BASO % 0.7 % (0.0-1.0); EOS # 0.1 10^3/uL (0.0-0.50); EOS % 1.9 % (0.0-3.0); HEMATOCRIT 30.7 % (42.0-52.0); HEMOGLOBIN 9.5 g/dl (13.5-17.5); IMMATURE GRANULOCYTE % 0.7 % (0-3.0); LYMPH # 0.6 10^3/uL (1.5-4.5); LYMPH % 14.4 % (24.0-44.0); MEAN CORPUSCULAR HEMOGLOBIN 24.7 pg (27.0-33.0); MEAN CORPUSCULAR HGB CONC 30.9 g/dl (32.0-36.5); MEAN CORPUSCULAR VOLUME 79.9 fl (80.0-96.0); MONO # 0.5 10^3/uL (0.0-0.8); MONO % 12.2 % (0.0-5.0); NEUTROPHILS # 2.9 10^3/uL (1.8-7.7); NEUTROPHILS % 70.1 % (36.0-66.0); PLATELET COUNT, AUTOMATED 137 10^3/uL (150-450); RED BLOOD COUNT 3.84 10^6/uL (4.30-6.10); WHITE BLOOD COUNT 4.2 10^3/uL (4.0-10.0)
[2017-09-09 16:41] LABS: ALBUMIN/GLOBULIN RATIO 0.79 (1.00-1.93); ALKALINE PHOSPHATASE 145 U/L (45-117); ALT/SGPT 17 U/L (12-78); ANION GAP 7 MEQ/L (8-16); AST/SGOT 24 U/L (7-37); BILIRUBIN,TOTAL 0.3 MG/DL (0.2-1.0); BLOOD UREA NITROGEN 23 MG/DL (7-18); CARBON DIOXIDE LEVEL 25 MEQ/L (21-32); CHLORIDE LEVEL 105 MEQ/L (98-107); CREATININE FOR GFR 1.33 MG/DL (0.70-1.30); GLOMERULAR FILTRATION RATE 56.1 (>42); GLUCOSE, FASTING 321 MG/DL (70-100); POTASSIUM SERUM 4.5 MEQ/L (3.5-5.1); SODIUM LEVEL 137 MEQ/L (136-145); TOTAL PROTEIN 6.8 GM/DL (6.4-8.2)
== END ==
LOC: M SFHCCLAY 12:07
DX: K74.69 Other cirrhosis of liver (principal)
CPT/HCPCS: 80053

== ENCOUNTER → 2017-09-22 | Outpatient (CLI) | payer MEDICARE ==
[2017-09-22 13:13] LABS: TYPE AND SCREEN 1
[2017-09-22 13:15] LABS: TYPE AND SCREEN 1
== END ==
LOC: M RADPRO 13:46
DX: K74.69 Other cirrhosis of liver (principal); R18.8 Other ascites; I10 Essential (primary) hypertension; K21.9 Gastro-esophageal reflux disease without esophagitis; E78.00 Pure hypercholesterolemia, unspecified; Z86.73 Personal history of transient ischemic attack (TIA), and cerebral infarction without residual deficits; Z87.39 Personal history of other diseases of the musculoskeletal system and connective tissue; Z93.6 Other artificial openings of urinary tract status; Z79.4 Long term (current) use of insulin; Z79.899 Other long term (current) drug therapy; Z87.891 Personal history of nicotine dependence
CPT/HCPCS: 49083

== ENCOUNTER → 2017-09-30 | Outpatient (REF) | payer MEDICARE ==
[2017-09-30 16:35] LABS: ALBUMIN 2.8 GM/DL (3.2-5.2); ALBUMIN/GLOBULIN RATIO 0.74 (1.00-1.93); ALKALINE PHOSPHATASE 169 U/L (45-117); ALT/SGPT 12 U/L (12-78); ANION GAP 11 MEQ/L (8-16); AST/SGOT 17 U/L (7-37); BILIRUBIN,TOTAL 0.6 MG/DL (0.2-1.0); BLOOD UREA NITROGEN 27 MG/DL (7-18); CALCIUM LEVEL 8.1 MG/DL (8.8-10.2); CARBON DIOXIDE LEVEL 26 MEQ/L (21-32); CHLORIDE LEVEL 103 MEQ/L (98-107); CREATININE FOR GFR 1.65 MG/DL (0.70-1.30); GLOMERULAR FILTRATION RATE 43.8 (>42); GLUCOSE, FASTING 131 MG/DL (70-100); POTASSIUM SERUM 3.5 MEQ/L (3.5-5.1); SODIUM LEVEL 140 MEQ/L (136-145); TOTAL PROTEIN 6.6 GM/DL (6.4-8.2)
[2017-09-30 16:41] LABS: AMMONIA 124 uMOL/L (<32)
[2017-09-30 16:45] LABS: BASO % 0.6 % (0.0-1.0); EOS # 0.1 10^3/uL (0.0-0.50); EOS % 2.1 % (0.0-3.0); HEMATOCRIT 36.3 % (42.0-52.0); HEMOGLOBIN 11.1 g/dl (13.5-17.5); IMMATURE GRANULOCYTE % 0.6 % (0-3.0); LYMPH # 0.8 10^3/uL (1.5-4.5); LYMPH % 12.2 % (24.0-44.0); MEAN CORPUSCULAR HEMOGLOBIN 25.4 pg (27.0-33.0); MEAN CORPUSCULAR HGB CONC 30.6 g/dl (32.0-36.5); MEAN CORPUSCULAR VOLUME 83.1 fl (80.0-96.0); MONO # 0.8 10^3/uL (0.0-0.8); MONO % 12.7 % (0.0-5.0); NEUTROPHILS # 4.8 10^3/uL (1.8-7.7); NEUTROPHILS % 71.8 % (36.0-66.0); PLATELET COUNT, AUTOMATED 140 10^3/uL (150-450); RED BLOOD COUNT 4.37 10^6/uL (4.30-6.10); RED CELL DISTRIBUTION WIDTH 18.2 % (11.5-14.5); WHITE BLOOD COUNT 6.6 10^3/uL (4.0-10.0)
== END ==
LOC: M SFHCCLAY 10:33
DX: K74.69 Other cirrhosis of liver (principal); D61.818 Other pancytopenia
CPT/HCPCS: 82140

== ENCOUNTER → 2017-10-04 | Outpatient (CLI) | payer MEDICARE ==
[2017-10-04 08:57] LABS: TYPE AND SCREEN 1
== END ==
LOC: M RADPRO 10:57
DX: R18.8 Other ascites (principal); I10 Essential (primary) hypertension; E78.00 Pure hypercholesterolemia, unspecified; E11.9 Type 2 diabetes mellitus without complications; M19.90 Unspecified osteoarthritis, unspecified site; Z79.4 Long term (current) use of insulin; Z79.899 Other long term (current) drug therapy; Z88.5 Allergy status to narcotic agent; Z88.8 Allergy status to other drugs, medicaments and biological substances; Z87.891 Personal history of nicotine dependence; Z87.39 Personal history of other diseases of the musculoskeletal system and connective tissue; Z86.73 Personal history of transient ischemic attack (TIA), and cerebral infarction without residual deficits
CPT/HCPCS: 49083

== ENCOUNTER → 2017-10-19 | Outpatient (REF) | payer MEDICARE ==
[2017-10-19 18:42] LABS: AMMONIA 168 uMOL/L (<32)
== END ==
LOC: M LAB REF 16:54
DX: K74.60 Unspecified cirrhosis of liver (principal)
CPT/HCPCS: 82140

== ENCOUNTER → 2017-10-21 | Outpatient (CLI) | payer MEDICARE ==
[2017-10-21 08:45] LABS: TYPE AND SCREEN 1
== END ==
LOC: M RADPRO 09:51
PROVIDERS: Pediatrics
DX: R18.8 Other ascites (principal); Z87.19 Personal history of other diseases of the digestive system; I10 Essential (primary) hypertension; E78.5 Hyperlipidemia, unspecified; M19.90 Unspecified osteoarthritis, unspecified site; K21.9 Gastro-esophageal reflux disease without esophagitis; E11.9 Type 2 diabetes mellitus without complications; Z79.4 Long term (current) use of insulin; Z79.899 Other long term (current) drug therapy; Z88.5 Allergy status to narcotic agent; Z88.8 Allergy status to other drugs, medicaments and biological substances; Z86.73 Personal history of transient ischemic attack (TIA), and cerebral infarction without residual deficits; Z87.39 Personal history of other diseases of the musculoskeletal system and connective tissue
CPT/HCPCS: 49083

== ENCOUNTER → 2017-11-01 | Outpatient (REF) | payer MEDICARE ==
[2017-11-01 17:11] LABS: AMMONIA 87 uMOL/L (<32)
[2017-11-01 17:24] LABS: ALBUMIN 2.7 GM/DL (3.2-5.2); ALBUMIN/GLOBULIN RATIO 0.71 (1.00-1.93); ALKALINE PHOSPHATASE 236 U/L (45-117); ALT/SGPT 24 U/L (12-78); ANION GAP 7 MEQ/L (8-16); AST/SGOT 34 U/L (7-37); BILIRUBIN,TOTAL 0.6 MG/DL (0.2-1.0); BLOOD UREA NITROGEN 29 MG/DL (7-18); CALCIUM LEVEL 8.1 MG/DL (8.8-10.2); CARBON DIOXIDE LEVEL 26 MEQ/L (21-32); CHLORIDE LEVEL 105 MEQ/L (98-107); CREATININE FOR GFR 1.58 MG/DL (0.70-1.30); GLUCOSE, FASTING 159 MG/DL (70-100); POTASSIUM SERUM 4.4 MEQ/L (3.5-5.1); SODIUM LEVEL 138 MEQ/L (136-145); TOTAL PROTEIN 6.5 GM/DL (6.4-8.2)
[2017-11-01 18:15] LABS: BASO % 0.5 % (0.0-1.0); EOS # 0.2 10^3/uL (0.0-0.50); EOS % 2.6 % (0.0-3.0); HEMOGLOBIN 11.1 g/dl (13.5-17.5); IMMATURE GRANULOCYTE % 0.5 % (0-3.0); LYMPH # 0.7 10^3/uL (1.5-4.5); LYMPH % 11.6 % (24.0-44.0); MEAN CORPUSCULAR HEMOGLOBIN 25.5 pg (27.0-33.0); MEAN CORPUSCULAR HGB CONC 30.8 g/dl (32.0-36.5); MEAN CORPUSCULAR VOLUME 82.6 fl (80.0-96.0); MONO # 0.7 10^3/uL (0.0-0.8); MONO % 12.1 % (0.0-5.0); NEUTROPHILS # 4.2 10^3/uL (1.8-7.7); NEUTROPHILS % 72.7 % (36.0-66.0); PLATELET COUNT, AUTOMATED 161 10^3/uL (150-450); RED BLOOD COUNT 4.36 10^6/uL (4.30-6.10); RED CELL DISTRIBUTION WIDTH 16.5 % (11.5-14.5); WHITE BLOOD COUNT 5.7 10^3/uL (4.0-10.0)
== END ==
LOC: M SFHCCLAY 11:25
DX: K74.69 Other cirrhosis of liver (principal); D61.818 Other pancytopenia
CPT/HCPCS: 82140

== ENCOUNTER → 2017-11-04 | Outpatient (CLI) | payer MEDICARE ==
[2017-11-04 09:38] LABS: TYPE AND SCREEN 1
== END ==
LOC: M RADPRO 10:22
DX: R18.8 Other ascites (principal); Z88.5 Allergy status to narcotic agent; Z88.1 Allergy status to other antibiotic agents; Z88.2 Allergy status to sulfonamides; Z88.8 Allergy status to other drugs, medicaments and biological substances; Z79.4 Long term (current) use of insulin; Z79.899 Other long term (current) drug therapy
CPT/HCPCS: 49083

== ENCOUNTER 2017-11-15 14:14 | Emergency (ER) | payer MEDICARE ==
[2017-11-15] MEDS ORDERED: DOPamine 400 MG/500 ML BAG IN D5W (800MCG/ML) (J1265) (14:15)
[2017-11-15] MEDS ORDERED: EPINEPHrine 1MG/10ML SYRINGE 1.5IN (14:15)
[2017-11-15] MEDS ORDERED: PROPOFOL 1,000 MG/100 ML VIAL As Ordered (14:23)
[2017-11-15] MEDS: PROPOFOL 200 MG/20 ML VIAL IV (14:25)
[2017-11-15] MEDS: NS 1,000 ML IV (14:29)
[2017-11-15] MEDS: PROPOFOL 1,000 MG in APPROPRIATE DILUENT 1 EA IV (14:35)
[2017-11-15 14:44] LABS: BASO # 0.1 10^3/uL (0.0-0.2); BASO % 0.8 % (0.0-1.0); EOS # 0.2 10^3/uL (0.0-0.50); HEMATOCRIT 34.3 % (42.0-52.0); HEMOGLOBIN 10.6 g/dl (13.5-17.5); LYMPH # 4.5 10^3/uL (1.5-4.5); LYMPH % 38.4 % (24.0-44.0); MEAN CORPUSCULAR HEMOGLOBIN 26.2 pg (27.0-33.0); MEAN CORPUSCULAR HGB CONC 30.9 g/dl (32.0-36.5); MEAN CORPUSCULAR VOLUME 84.9 fl (80.0-96.0); MONO # 0.9 10^3/uL (0.0-0.8); MONO % 8.1 % (0.0-5.0); NEUTROPHILS # 5.3 10^3/uL (1.8-7.7); NEUTROPHILS % 45.7 % (36.0-66.0); PLATELET COUNT, AUTOMATED 169 10^3/uL (150-450); RED BLOOD COUNT 4.04 10^6/uL (4.30-6.10); RED CELL DISTRIBUTION WIDTH 17.7 % (11.5-14.5); WHITE BLOOD COUNT 11.6 10^3/uL (4.0-10.0)
[2017-11-15] MEDS ORDERED: NS 1,000 ML IV (14:45)
[2017-11-15 14:47] LABS: ABG BASE EXCESS -7.6 (-2.0-2.0); ABG HCO3 21.1 MEQ/L (22.0-26.0); ABG O2 SATURATION 24.4 % (95.0-99.0); ABG PARTIAL PRESSURE CO2 58.4 mmHg (35.0-45.0); ABG STANDARD HCO3 17.1 MEQ/L (22.0-26.0); ABG TOTAL CO2 22.9 MEQ/L (23.0-31.0)
[2017-11-15] MEDS: DOPamine HCL 400 MG in APPROPRIATE DILUENT 1 EA IV (14:48)
[2017-11-15 14:50] LABS: ABG pH (ARTERIAL) 7.176 UNITS (7.350-7.450)
[2017-11-15 14:51] LABS: ABG PARTIAL PRESSURE O2 23.4 mmHg (75.0-100.0)
[2017-11-15 14:55] LABS: PROTHROMBIN TIME 16.5 SECONDS (12.4-14.5)
[2017-11-15 15:14] LABS: ALBUMIN 3.3 GM/DL (3.2-5.2); ALBUMIN/GLOBULIN RATIO 0.97 (1.00-1.93); ALKALINE PHOSPHATASE 186 U/L (45-117); ALT/SGPT 18 U/L (12-78); ANION GAP 10 MEQ/L (8-16); AST/SGOT 24 U/L (7-37); BILIRUBIN,DIRECT 0.3 MG/DL (0.0-0.2); BILIRUBIN,TOTAL 0.6 MG/DL (0.2-1.0); BLOOD UREA NITROGEN 29 MG/DL (7-18); CALCIUM LEVEL 7.9 MG/DL (8.8-10.2); CARBON DIOXIDE LEVEL 22 MEQ/L (21-32); CHLORIDE LEVEL 107 MEQ/L (98-107); CPK CREATINE PHOSPHOKINASE 61 U/L (39-308); CREATININE FOR GFR 1.51 MG/DL (0.70-1.30); FREE T4 0.85 NG/DL (0.76-1.46); GLOMERULAR FILTRATION RATE 48.5 (>42); GLUCOSE, FASTING 160 MG/DL (70-100); LIPASE 94 U/L (73-393); POTASSIUM SERUM 4.2 MEQ/L (3.5-5.1); SODIUM LEVEL 139 MEQ/L (136-145); TOTAL PROTEIN 6.7 GM/DL (6.4-8.2); TROPONIN I 0.05 NG/ML (< 0.10)
[2017-11-15 15:18] LABS: ABG BASE EXCESS -11.4 (-2.0-2.0); ABG HCO3 17.2 MEQ/L (22.0-26.0); ABG O2 SATURATION 99.8 % (95.0-99.0); ABG PARTIAL PRESSURE CO2 50.2 mmHg (35.0-45.0); ABG PARTIAL PRESSURE O2 264.4 mmHg (75.0-100.0); ABG STANDARD HCO3 15.5 MEQ/L (22.0-26.0); ABG TOTAL CO2 18.8 MEQ/L (23.0-31.0)
[2017-11-15 15:20] LABS: ABG pH (ARTERIAL) 7.153 UNITS (7.350-7.450); CK-MB VALUE MASS 2.3 NG/ML (<3.6); MB/CK RELATIVE INDEX 3.77 (< OR =4); NT-PRO BNP 285 PG/ML (<125)
[2017-11-15 16:23] LABS: TYPE AND SCREEN 1
== END 2017-11-15 16:50 | disposition short-term general hospital (02) ==
LOC: M ED 14:14
DX: I21.3 ST elevation (STEMI) myocardial infarction of unspecified site (principal); R18.8 Other ascites; E11.9 Type 2 diabetes mellitus without complications; I10 Essential (primary) hypertension; E78.5 Hyperlipidemia, unspecified; Z79.01 Long term (current) use of anticoagulants; Z79.4 Long term (current) use of insulin; Z79.899 Other long term (current) drug therapy; Z88.8 Allergy status to other drugs, medicaments and biological substances; Z88.5 Allergy status to narcotic agent; Z82.49 Family history of ischemic heart disease and other diseases of the circulatory system
CPT/HCPCS: 49083

== ENCOUNTER → 2017-11-15 | Outpatient (CLI) | payer MEDICARE ==
[2017-11-15 10:18] LABS: TYPE AND SCREEN 1
[2017-11-15 10:18] LABS: TYPE AND SCREEN 1
== END ==
LOC: M RADPRO 12:17
DX: R18.8 Other ascites (principal); Z79.01 Long term (current) use of anticoagulants; Z79.4 Long term (current) use of insulin; Z79.899 Other long term (current) drug therapy; Z88.5 Allergy status to narcotic agent; Z88.8 Allergy status to other drugs, medicaments and biological substances